=== PATIENT | female | born 1975 | race Caucasian/White ===

== ENCOUNTER 2022-12-25 14:25 | Inpatient (IN) | payer BC, SELFPAY ==
[2022-12-25] VITALS (38 sets, daily range): BP systolic 86–182; BP diastolic 57–116; PULSE 78–118; RESP 12–18; TEMP 36.1–36.9; O2SAT 76–100; BMI 20.2
--- NOTE | 2022-12-25 14:51 | CRLHL7_ITS ---
For Patients: As a result of the Century Cures Act, medical imaging exams and procedure reports are released immediately into your electronic medical record. You may view this report before your referring provider. If you have questions, please contact your health care provider. INDICATION: Trauma, fall TECHNIQUE: CT head without contrast. COMPARISON: None. FINDINGS: No intracranial hemorrhage. No discrete mass or mass effect. There is no midline shift. The basilar cisterns are patent. No hydrocephalus. The chapman-white matter interface is otherwise preserved. No acute osseous abnormality. Bifrontal small scalp hematomas and subcutaneous edema. The mastoid air cells are clear. Trace air-fluid level in the left maxillary sinus. Hypo pneumatization of the frontal sinuses. The visualized portions of the orbits and globes are unremarkable. IMPRESSION: No acute intracranial process per unenhanced head CT. Please note that all CT scans at this facility use dose modulation, iterative reconstruction, and/or weight-based dosing when appropriate to reduce radiation dose to as low as reasonably achievable. Dictated by Yoandy Treviño MD @ 12/25/2022 4:06:54 PM (Electronically Signed)
--- NOTE | 2022-12-25 14:52 | ED.HEATRA ---
HPI - Head Injury General Chief complaint: Head Injury/Pain Stated complaint: Fall, head injury Time Seen by Provider: 12/25/22 14:29 History of Present Illness HPI Narrative: This 47-year-old female comes in with her daughter. She fell last night around midnight. She states that she did not lose consciousness but yet does not give me clear details as to what happened. She denies using any alcohol but her daughter shakes her head affirmatively regarding this. The patient states that she does not have any pain. She has bruising on the left and right forehead and her left eye has bruising around it. She denies having any other injury. She has been up ambulating and functioning normally today. She came in because her daughter insisted that she come in. Related Data Home Medications Medication Instructions Recorded Confirmed albuterol sulfate 90 mcg/actuation inhalation 12/25/22 aerosol inhaler (Ventolin HFA) lisinopril 10 mg tablet 10 mg PO DAILY 12/25/22 12/25/22 Allergies Allergy/AdvReac Type Severity Reaction Status Date / Time No Known Drug Allergies Allergy Verified 12/25/22 14:40 Review of Systems Status of ROS: Reports: 10 or more systems reviewed and unremarkable except as noted in History and below Narrative: Constitutional: No fevers, no weight gain or loss. Eyes: No discharge. No vision changes. HENT: No congestion, no sore throat, no ear pain. Cardiovascular: No chest pain, no palpitations. Respiratory: No shortness of breath, no wheezes, no cough. Gastrointestinal: No abdominal pain, no vomiting, no diarrhea. Genitourinary: No dysuria, no hematuria. Musculoskeletal: Normal range of motion. Skin: No rashes, no pruritis. Neurological: No dizziness, weakness, sensory change, speech change. Endo/Heme/Allergies: No bruising or bleeding. No polydipsia. Pysch: no suicidality, no anxiety, no insomnia. All other systems reviewed and are negative. PFSH PFS Social History Smoking Status: Current every day smoker What tobacco products do you use: cigarettes Do you use any of these nicotine containing products: None How often do you have a drink containing alcohol: 4 or more times a week How many standard drinks containing alcohol do you have on a typical day: 3 or 4 How often do you have six or more drinks on one occasion: Daily or almost daily AUDIT-C Alcohol total score: 9 Non-prescribed substance use: denies use Exam Narrative: Exam Narrative: Constitutional: Well-developed, well-nourished, no acute distress. HEENT: Ecchymosis and mild swelling on both sides of the forehead. Around the Left eye has ecchymosis and mild swelling. Neck: Normal range of motion. Nontender. Supple. Heart: Regular. No murmurs. Normal rate. Intact distal pulses. Lungs: Clear to auscultation. No chest discomfort. No wheezes, rhonchi, or rales. Abdomen: Normal bowel sounds. Nontender. No rebound tenderness. Genitalia: Deferred. Back: No midline tenderness. Normal range of motion. Extremities: Normal range of motion. No injury. Skin: Intact. No rash. Warm. No erythema or pallor. Neurologic: No altered sensation. No weakness. Alert and oriented. No facial asymmetry. [id number] is normal. No pronator drift. Director Fundraising strength is equal bilaterally. She is able to raise each leg from the bed. Psychiatric: No suicidality. No anxiety or depression. No insomnia. Nursing notes and vitals signs are reviewed. Const: Vital Signs, click to edit/add: Vital Signs - 24 hr 12/25/22 14:33 12/25/22 16:19 12/25/22 17:00 Temperature 96.9 F L Pulse Rate Pulse Rate [Pulse Oximeter] 80 78 78 Respiratory Rate 14 12 Blood Pressure Blood Pressure [Ri ght Upper Arm] 163/90 H 159/98 H Pulse Oximetry 100 95 Oxygen Delivery Me thod Room Air Room Air Oxygen Flow Rate 12/25/22 17:24 12/25/22 17:25 12/25/22 17:30 Temperature Pulse Rate 89 88 80 Pulse Rate [Pulse Oximeter] Respiratory Rate Blood Pressure Blood Pressure [Ri ght Upper Arm] Pulse Oximetry 89 96 98 Oxygen Delivery Me thod Oxygen Flow Rate 12/25/22 17:38 12/25/22 17:32 12/25/22 17:45 Temperature Pulse Rate 107 H 99 Pulse Rate [Pulse Oximeter] Respiratory Rate Blood Pressure 161/97 H Blood Pressure [Ri ght Upper Arm] Pulse Oximetry 96 76 L 98 Oxygen Delivery Me thod Nasal Cannula Oxygen Flow Rate 2 12/25/22 17:53 12/25/22 17:55 12/25/22 18:00 Temperature Pulse Rate 99 94 101 H Pulse Rate [Pulse Oximeter] Respiratory Rate Blood Pressure 182/115 H 165/94 H Blood Pressure [Ri ght Upper Arm] Pulse Oximetry 100 100 97 Oxygen Delivery Me thod Oxygen Flow Rate 12/25/22 18:15 12/25/22 18:28 12/25/22 18:30 Temperature Pulse Rate 90 108 H 108 H Pulse Rate [Pulse Oximeter] Respiratory Rate Blood Pressure 145/103 H Blood Pressure [Ri ght Upper Arm] Pulse Oximetry 100 91 96 Oxygen Delivery Me thod Oxygen Flow Rate 12/25/22 18:33 12/25/22 18:37 12/25/22 18:43 Temperature Pulse Rate 111 H 118 H 116 H Pulse Rate [Pulse Oximeter] Respiratory Rate Blood Pressure 148/105 H 145/116 H 141/99 H Blood Pressure [Ri ght Upper Arm] Pulse Oximetry 98 100 86 L Oxygen Delivery Me thod Oxygen Flow Rate 12/25/22 18:45 12/25/22 18:46 12/25/22 18:51 Temperature Pulse Rate 115 H 109 H 111 H Pulse Rate [Pulse Oximeter] Respiratory Rate Blood Pressure 133/87 126/82 Blood Pressure [Ri ght Upper Arm] Pulse Oximetry 87 L 97 95 Oxygen Delivery Me thod Oxygen Flow Rate 12/25/22 18:57 12/25/22 19:00 12/25/22 19:01 Temperature Pulse Rate 113 H 111 H 110 H Pulse Rate [Pulse Oximeter] Respiratory Rate Blood Pressure 117/87 118/90 H Blood Pressure [Ri ght Upper Arm] Pulse Oximetry 99 100 100 Oxygen Delivery Me thod Oxygen Flow Rate Course Vital Signs Vital signs: Initial Vital Signs Temperature 96.9 F L 12/25/22 14:33 Temperature Source Temporal Artery Scan 12/25/22 14:33 Pulse Rate 80 12/25/22 14:33 Respiratory Rate 14 12/25/22 14:33 Blood Pressure 163/90 H 12/25/22 14:33 Blood Pressure Mean 114 12/25/22 14:33 Blood Pressure Position Sitting 12/25/22 14:33 Pulse Oximetry 100 12/25/22 14:33 Oxygen Delivery Method 12/25/22 14:33 Vital Signs Temperature 96.9 F L 12/25/22 14:33 Pulse Rate 80 12/25/22 14:33 Respiratory Rate 14 12/25/22 14:33 Blood Pressure 163/90 H 12/25/22 14:33 Pulse Oximetry 100 12/25/22 14:33 Oxygen Delivery Method 12/25/22 14:33 Temperature 96.9 F L 12/25/22 14:33 Pulse Rate 110 H 12/25/22 19:01 Respiratory Rate 12 12/25/22 16:19 Blood Pressure 118/90 H 12/25/22 19:01 Pulse Oximetry 100 12/25/22 19:01 Oxygen Delivery Method 12/25/22 17:38 Oxygen Flow Rate 2 12/25/22 17:38 MDM - Head Injury MDM Narrative Medical decision making narrative: This patient comes in with her daughter because of a head injury that occurred about 16 hours prior to arrival. She states that she did not have any complaints and had no pain. She does have significant bruising on her forehead and around her left eye. She denies loss of consciousness. CT imaging of her head shows no acute findings. I went to revisit the patient after the CT scan was completed because there was report that there was a change in her function. Her neurologic exam initially was completely normal. Her mental status however distinctly changed. She was completely understandable but did not answer questions appropriately. She was not cooperative with a repeat exam at this time. Lab results returned with blood alcohol level at 0.02. Most notably her sodium is very low at 111. She received a L of normal saline intravenously. She began to be tremulous on repeat exam when I was again evaluating her neurologic function. She did not show any neurologic deficit but was tremulous. About 10 or 15 minutes after this she did have a tonic-clonic seizure. She received a mg of Ativan soon after the seizure subsided. This seizure lasted approximately 45 seconds. The nurse reported later that she was having an increased heart rate and appeared to have some tremors again so another dose of Ativan 1 mg was administered intravenously. According to the patient's sister she takes alcohol in large amounts daily. This is likely a withdrawal seizure but there is no report of this happening in the past. Her hyponatremia may be contributing to this. I spoke with the hospitalist video production specialist, Dr. Tyler, who will arrange for her admission. Time spent in critical care of this patient was 45 minutes. Lab Data Labs: Lab Results 12/25/22 12/25/22 12/25/22 Range/Units 17:00 17:00 17:00 WBC 9.58 (4.50-11.00) K/uL RBC 3.64 L (4.00-5.20) m/uL Hgb 12.1 (12.0-16.0) gm/dL Hct 33.2 (33.0-51.0) % MCV 91 (80-100) fL MCH 33 (26-34) pg MCHC 36 (32-36) gm/dL RDW Coeff of Evangelina 11.3 L (11.5-15.5) % Plt Count 249 (140-440) K/uL Neut % (Auto) 71.4 (42.0-72.0) % Lymph % (Auto) 18.8 L (20-44) % [place] % (Auto) 9.3 (0.0-11.0) % Eos % (Auto) 0.0 (0.0-7.0) % Baso % (Auto) 0.1 (0.0-3.0) % Neut # (Auto) 6.84 (1.7-7.0) K/uL Lymph # (Auto) 1.80 (0.90-2.90) K/uL [place] # (Auto) 0.90 (0.00-0.90) K/UL Eos # (Auto) 0.00 (0.00-0.50) K/uL Baso # (Auto) 0.01 (0.00-0.30) K/uL Sodium 111 L* (135-149) mmol/L Potassium 4.0 (3.6-5.1) mmol/L Chloride 81 L (96-114) mmol/L Carbon Dioxide 23 (20-32) mmol/L BUN 5 (5-24) mg/dL Creatinine 0.2 L (0.5-1.5) mg/dL Estimated Creat Clear 251.68 Estimated GFR 146 ml/min Glucose 110 (60-115) mg/dL Calcium 8.3 L (8.4-10.6) mg/dL Total Bilirubin 1.1 (0.1-1.5) mg/dL Direct Bilirubin 0.2 (0.0-0.5) mg/dL AST 62 H (12-35) U/L ALT 63 H (4-35) U/L Alkaline Phosphatase 60 (40-150) U/L Ammonia 24.0 (13.1-30.0) umol/L C-Reactive Protein < 0.5 L (0.5-1.0) mg/dL Total Protein 7.3 (6.0-8.3) g/dL Albumin 4.6 (3.3-5.0) g/dL Ethyl Alcohol 0.02 (0.01-0.03) % Imaging Data CT scan - head: Radiologist's impression: No acute intracranial process per unenhanced head CT. Chest x-ray: Radiologist's impression: FINDINGS: Cardiovascular and mediastinum: Heart size and vasculature are normal in caliber and appearance. Mediastinum is within normal limits. Lungs and pleural space: Lungs are clear. No sign of infiltrate or mass. No sign of pleural effusion. No pneumothorax. Bones and soft tissues: No significant findings. IMPRESSION: Unremarkable chest. Critical Care Time Critical Care Time Critical Care Time: Yes Attestation: The patient required my highest level preparedness to intervene emergently and I personally spent this critical care time directly and personally managing the patient. This critical care time included: Obtaining a history; Examining the patient; Pulse oximetry; Ordering and reviewing of studies; Arranging urgent treatment with development of a management plan; Evaluation of patients response to treatment; Frequent reassessment discussions with other providers. This critical care time was performed to assess and manage the high probability of imminent life-threatening deterioration that could result in multiorgan failure. It was exclusive of separate billable procedures and treating other patients and teaching time. Total Critical Care Time in Minutes: 45 Discharge Plan Discharge Clinical Impression: Alcohol withdrawal, Closed head injury, Hyponatremia, Seizure Patient Disposition: Admitted As Inpatient Condition: Unchanged Prescriptions: No Action lisinopril 10 mg tablet 10 mg PO DAILY Label Comments: TAKE ONE TABLET BY MOUTH ONE TIME DAILY albuterol sulfate [Ventolin HFA] 90 mcg/actuation HFA aerosol inhaler INHALATION Follow Up/Referrals: Joaquin Hood MD [Primary Care Provider] -
--- NOTE | 2022-12-25 14:58 | ED.NURSE ---
Daughter approached nursing staff and wanted to make sure that staff is aware that her mother was drinking at the time. Furthermore, daughter would like staff to know that this is not the first time she has found her mother in this condition due to drinking in excess. Daughter also wants staff to be alerted that the pt told the physician a conflicting story on the mechanism of injury- told physician she fell down the stairs. Told staff she fell onto a concrete floor. Noted during pts assessment is bruising/lump to the pts R upper forehead, Bruising and scrapes present to pts L upper forehead and surrounding her L eye.
--- NOTE | 2022-12-25 17:03 | ED.NURSE ---
Patients daughter alerted staff at approx 1610 that mother was slurring her speech. RN assessed patient at this time; Pt had equal/bilateral hand gear inspector and push/pull strength in feet bilateral and was able to follow commands. Pt alert and oriented at this time, was a little slow to respond to answers. However, from the baseline assessment of this patient, there was no change. At approximately 1641 this RN was notified that the pts daughter was very upset and that another staff member noted that the patient was not verbally interacting with her at this time. Being the primary nurse for this room, I went in to assess the patient. Pt exhibiting word salad at this time when responding to questions. Slight slurring of the speech present at this time as well. Pt unable to identify her name and responds with nothing. Patient does not follow basic commands from staff. Blood Glucose level assessed at this time is 123. Patient is unable to track anything with her eyes per commands at this time either. Pts provider was alerted to changes in mental status.
[2022-12-25 17:05] LABS: Basophils Absolute Auto 0.01 K/uL (0.00-0.30); Basophils Percent Auto 0.1 % (0.0-3.0); Hematocrit 33.2 % (33.0-51.0); Hemoglobin* 12.1 gm/dL (12.0-16.0); Immature Granulocytes Abs Auto 0.04 K/uL (0.00-0.30); Immature Granulocytes Pct Auto 0.4 %; Lymphocytes Percent Auto 18.8 % (20-44); Mean Corpuscular HGB Conc 36 gm/dL (32-36); Mean Corpuscular Hemoglobin 33 pg (26-34); Mean Corpuscular Volume 91 fL (80-100); Monocytes Percent Auto 9.3 % (0.0-11.0); Neutrophils Absolute Auto 6.84 K/uL (1.7-7.0); Neutrophils Percent Auto 71.4 % (42.0-72.0); Platelet Count* 249 K/uL (140-440); RDW Coefficient of Variation % 11.3 % (11.5-15.5); Red Blood Count 3.64 m/uL (4.00-5.20); White Blood Count* 9.58 K/uL (4.50-11.00)
--- NOTE | 2022-12-25 17:08 | ED.NURSE ---
MD in room for assessment of pt d/t acute change in neuro status. Test Technician asks pt what happened earlier today. Pt is able to state words but unable to create coherent sentences. MD at bedside to perform neuro assessment, and when MD attempts to have pt squeeze hands, pt states no. MD attempts other aspects of neuro exam and pt continuing to refuse. Pt agrees to IV/blood work and resume writer places 18 g in right AC. Test Technician attempts neuro exam and pt unable to push against resistance and exhibit strength in all four limbs. Pt unable to squeeze resume writer's hands in bilateral arms. Pt continues to attempt climbing out of bed. Pt reminded to use call light when needing to get up. Pt being monitored on security camera. Pt's daughter at bedside and educated to use call light when pt attempting to get up. Blood work sent to lab. Test Technician verifies new orders with MD. Per MD, repeat imaging not needed at this time, but will be ordered if needed pending blood results.
[2022-12-25 17:13] LABS: Slide Review Reflex No
[2022-12-25 17:22] LABS: Albumin* 4.6 g/dL (3.3-5.0); Chloride* 81 mmol/L (96-114)
[2022-12-25 17:25] LABS: Creatinine* 0.2 mg/dL (0.5-1.5); Est. Creatinine Clearance* 251.68; Estimated Glomerular Filt Rate 146 ml/min
[2022-12-25 17:26] LABS: Alanine Aminotransferase* 63 U/L (4-35); Alkaline Phosphatase* 60 U/L (40-150); Aspartate Amino Transferase* 62 U/L (12-35); Bilirubin Direct* 0.2 mg/dL (0.0-0.5); Bilirubin Total* 1.1 mg/dL (0.1-1.5); Blood Urea Nitrogen* 5 mg/dL (5-24); Calcium* 8.3 mg/dL (8.4-10.6); Carbon Dioxide* 23 mmol/L (20-32); Glucose* 110 mg/dL (60-115); Total Protein* 7.3 g/dL (6.0-8.3)
[2022-12-25 17:27] LABS: Ethanol* 0.02 % (0.01-0.03)
--- NOTE | 2022-12-25 17:36 | CRLHL7_ITS ---
For Patients: As a result of the Century Cures Act, medical imaging exams and procedure reports are released immediately into your electronic medical record. You may view this report before your referring provider. If you have questions, please contact your health care provider. INDICATION: cough; hypoxia TECHNIQUE: Chest 1 view. COMPARISON: 06/16/20 FINDINGS: Cardiovascular and mediastinum: Heart size and vasculature are normal in caliber and appearance. Mediastinum is within normal limits. Lungs and pleural space: Lungs are clear. No sign of infiltrate or mass. No sign of pleural effusion. No pneumothorax. Bones and soft tissues: No significant findings. IMPRESSION: Unremarkable chest. Dictated by: Yoandy Stout MD @ 12/25/2022 18:01:40 (Electronically Signed)
[2022-12-25 17:45] LABS: C Reactive Protein* < 0.5 mg/dL (0.5-1.0); Sodium* 111 mmol/L (135-149)
[2022-12-25] MEDS: 0.9 % SODIUM CHLORIDE 1000 ml 1,000 ML IV ×2 (18:17→23:57)
[2022-12-25] MEDS: LORazepam 2 MG/ML inj 1 MG IV ×2 (18:25→18:42)
--- NOTE | 2022-12-25 18:31 | ED.NURSE ---
Addendum entered by Carrie Pérez RN 12/25/22 18:52: RN was in pts room attempting to initiate IV fluids when patient becamse very restless and her HR increased into the 170's. Pt then began actively seizing. Seizure pads were already in place at the time. Dr gómez alerted and ordered 1 mg Ativan IVP. Fluids and cardiace monitor initiated as well as vitals Q 5 min. Approximately 1840 pt received another 1 mg dose Ativan via IVP per MD order for increasing HR and increasing tremor activity. Pt continuously suctioned bedside as needed. Original Note: RN was in the pts room attempting to initiate
[2022-12-25] MEDS: 0.9 % SODIUM CHLORIDE 500 ML 500 ML IV (19:27)
[2022-12-25] MEDS: LORazepam 2 MG/ML inj 1 MG IVP (19:46)
--- NOTE | 2022-12-25 19:49 | ED.NURSE ---
Dr. Morrow. in room to see pt. Per Dr. Morrow, pt unit. [facility] called and informed bed request sent.
--- NOTE | 2022-12-25 19:51 | W.PC.EDHO ---
Primary Language: Preferred Language: Orientation Status: [] Alert & Oriented [x] Slight Confusion [] Known Dx Dementia Transfers By: [] Assist of 1 [] Assist of 2 [x] Lift Active Medications Generic Name Dose Route Start Last Admin Trade Name Freq PRN Reason Stop Dose Admin Sodium Chloride 500 mls @ 500 mls/hr 12/25/22 19:24 12/25/22 19:27 0.9 % Sodium Chloride 500 Ml IV 12/25/22 20:23 500 mls/hr .Q1H ONE Administration Lorazepam 1 mg 12/25/22 19:43 12/25/22 19:46 Lorazepam 2 Mg/Ml Inj IVP 12/25/22 19:44 1 mg ONCE ONE Administration Discontinued Medications Generic Name Dose Route Start Last Admin Trade Name Freq PRN Reason Stop Dose Admin Sodium Chloride 1,000 mls @ 1,000 mls/hr 12/25/22 18:15 12/25/22 19:26 0.9 % Sodium Chloride 1000 Ml IV 12/25/22 19:14 Infused .Q1H SHARON Infusion Lorazepam 1 mg 12/25/22 18:35 12/25/22 18:25 Lorazepam 2 Mg/Ml Inj IV 12/25/22 18:36 1 mg ONCE ONE Administration Lorazepam 1 mg 12/25/22 18:42 12/25/22 18:42 Lorazepam 2 Mg/Ml Inj IV 12/25/22 18:43 1 mg ONCE ONE Administration Lorazepam 1 mg 12/25/22 19:40 12/25/22 19:45 Lorazepam 1 Mg Tablet PO 12/25/22 19:41 Not Given ONCE ONE Lorazepam 1 mg 12/25/22 19:42 12/25/22 19:45 Lorazepam 2 Mg/Ml Inj IVP 12/25/22 19:43 Not Given ONCE ONE Description of Symptoms ED Triage Date of Onset of 12/25/22 Symptoms Female History Patient No [place] Coma Scale Emily coma scale total score 13 [place] coma scale total score 11 [place] coma scale total score 15 Triage Comment ED Triage Comment Patient brought in by daughter, denies pain anywhere. States she fell last night outside at 0100 hours, denies ETOH use. Denies LOC. Denies exposure to cold for long. Pt has multiple bruises present at this time to both sides of face. IV Insertion/Site Date of IV Line Insertion [ 12/25/22 Right Anticubital] Oxygen Administration Pulse Oximetry 96 Pulse Oximetry 97 Pulse Oximetry 96 Pulse Oximetry 96 Pulse Oximetry 97 Pulse Oximetry 97 Pulse Oximetry 95 Pulse Oximetry 100 Pulse Oximetry 100 Pulse Oximetry 99 Pulse Oximetry 95 Pulse Oximetry 97 Pulse Oximetry 87 Pulse Oximetry 86 Pulse Oximetry 100 Pulse Oximetry 98 Pulse Oximetry 96 Pulse Oximetry 91 Pulse Oximetry 100 Pulse Oximetry 97 Pulse Oximetry 100 Pulse Oximetry 100 Pulse Oximetry 98 Pulse Oximetry 96 Pulse Oximetry 76 Pulse Oximetry 98 Pulse Oximetry 96 Pulse Oximetry 89 Pulse Oximetry 95 Pulse Oximetry 100 Oxygen Delivery Method Nasal Cannula Oxygen Delivery Method Room Air Oxygen Delivery Method Room Air Oxygen Flow Rate 2
[2022-12-25 20:03] LABS: Amphetamine Screen Urine Negative (Negative); Barbiturate Screen Urine Negative (Negative); Benzodiazepines Screen Urine Negative (Negative); Cannabinoid Screen Urine Negative (Negative); Cocaine Screen Urine Negative (Negative); Methadone Screen Urine Negative (Negative); Methamphetamines Screen Urine Negative (Negative); Opiate Screen Urine Negative (Negative); Oxycodone Screen Urine Negative (Negative); Phencyclidine Screen Urine Negative (Negative); Tricyclic Antidepressant Urine Negative (Negative)
[2022-12-25 20:10] LABS: SARS PCR* Negative SARS-CoV-2 (Negative)
[2022-12-25 20:14] LABS: Appearance Urine Clear (Clear); Bilirubin Urine Negative (Negative); Blood Urine 1+ (Negative); Color Urine Yellow (Yellow); Glucose Urine Trace (Negative); Ketones Urine Negative (Negative); Leukocyte Esterase Urine Negative (Negative); Nitrite Urine Negative (Negative); Protein Urine 3+ (Negative); Urobilinogen Urine 0.2 (0.2-1.0); pH Urine 6.5 (5.0-8.5)
[2022-12-25 20:21] LABS: Bacteria Urine Few; Squamous Epithelial Cell Urine Few (None-Few); WBC Urine 0-2 (0-5)
[2022-12-25 20:57] LABS: Lipase* 269 U/L (23-300)
[2022-12-25 21:05] LABS: HCO3 VBG 26 mmol/L (21-28); PCO2 VBG 36 mmHG (40-50); PO2 VBG 68.6 mmHG (25-47); pH VBG 7.475 (7.32-7.43)
[2022-12-25 21:09] LABS: Troponin I* 0.03 ng/mL (0.01-0.04)
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
[2022-12-25] MEDS: 0.9 % SODIUM CHLORIDE 1000 ml 1,000 ML 125 ML IV (21:27)
[2022-12-25] MEDS: PHENobarbitaL 260 MG in 0.9 % SODIUM CHLORIDE 100 ml 100 ML 208 MG IVPB (21:29)
[2022-12-25 21:37] LABS: Sodium* 112 mmol/L (135-149)
[2022-12-25 22:13] LABS: Troponin I* 0.64 ng/mL (0.01-0.04)
[2022-12-25 23:12] LABS: INR 0.95 (0.91-1.10); Partial Thromboplastin Time* 29 Seconds (23-33); Prothrombin Time 13.3 Seconds
[2022-12-25] MEDS: NICOTINE 21 MG PATCH 1 PATCH TRANSDERMA (23:55)
[2022-12-25] MEDS: ENOXAPARIN 30 MG/0.3ML INJ SUBCUT (23:56)
[2022-12-26] VITALS (21 sets, daily range): BP systolic 90–129; BP diastolic 63–90; PULSE 69–99; RESP 14–18; TEMP 36.2–37.4; O2SAT 98–100
[2022-12-26 02:37] LABS: Sodium* 115 mmol/L (135-149); Troponin I* 0.71 ng/mL (0.01-0.04)
--- NOTE | 2022-12-26 03:19 | PM.IMPN1 ---
Progress Note: A&P Assessment and plan (1) Hyponatremia: Problem details: 111 on 12/25/2022 Status: Acute Plan [facility] Hospitalist Cross Cover Note eHospitalist was contacted by nursing staff with concern of [critical labs] [The patient is a 47-year-old woman admitted with hyponatremia to 111, seizures and altered mental status in the setting of alcohol abuse. She was treated with normal saline. Repeat sodium right now is 115. The patient had an initial troponin of 0.64 and 0.71. I spoke to the nurse over the phone. The patient's mentation is improving and she is otherwise comfortable. The vitals are stable. Repeat labs are pending in the morning.] -Continue current management and follow-up labs in the morning. -Please call back for any worsening in mental status in which case she may need 3% hypertonic saline. Thank you for including Vee Recio in the patients care. This service is available for further assistance as requested by your care team by calling [phone]. Subjective Date Seen: 12/26/22 Exam Const: Vital Signs, click to edit/add: Vital Signs - 24 hr 12/25/22 14:33 12/25/22 16:19 12/25/22 17:00 Temperature 96.9 F L Pulse Rate Pulse Rate [Pulse Oximeter] 80 78 78 Respiratory Rate 14 12 Blood Pressure Blood Pressure [Le ft Arm] Blood Pressure [Ri ght Upper Arm] 163/90 H 159/98 H Pulse Oximetry 100 95 Oxygen Delivery Me thod Room Air Room Air Oxygen Flow Rate 12/25/22 17:24 12/25/22 17:25 12/25/22 17:30 Temperature Pulse Rate 89 88 80 Pulse Rate [Pulse Oximeter] Respiratory Rate Blood Pressure Blood Pressure [Le ft Arm] Blood Pressure [Ri ght Upper Arm] Pulse Oximetry 89 96 98 Oxygen Delivery Me thod Oxygen Flow Rate 12/25/22 17:38 12/25/22 17:32 12/25/22 17:45 Temperature Pulse Rate 107 H 99 Pulse Rate [Pulse Oximeter] Respiratory Rate Blood Pressure 161/97 H Blood Pressure [Le ft Arm] Blood Pressure [Ri ght Upper Arm] Pulse Oximetry 96 76 L 98 Oxygen Delivery Me thod Nasal Cannula Oxygen Flow Rate 2 12/25/22 17:53 12/25/22 17:55 12/25/22 18:00 Temperature Pulse Rate 99 94 101 H Pulse Rate [Pulse Oximeter] Respiratory Rate Blood Pressure 182/115 H 165/94 H Blood Pressure [Le ft Arm] Blood Pressure [Ri ght Upper Arm] Pulse Oximetry 100 100 97 Oxygen Delivery Me thod Oxygen Flow Rate 12/25/22 18:15 12/25/22 18:28 12/25/22 18:30 Temperature Pulse Rate 90 108 H 108 H Pulse Rate [Pulse Oximeter] Respiratory Rate Blood Pressure 145/103 H Blood Pressure [Le ft Arm] Blood Pressure [Ri ght Upper Arm] Pulse Oximetry 100 91 96 Oxygen Delivery Me thod Oxygen Flow Rate 12/25/22 18:33 12/25/22 18:37 12/25/22 18:43 Temperature Pulse Rate 111 H 118 H 116 H Pulse Rate [Pulse Oximeter] Respiratory Rate Blood Pressure 148/105 H 145/116 H 141/99 H Blood Pressure [Le ft Arm] Blood Pressure [Ri ght Upper Arm] Pulse Oximetry 98 100 86 L Oxygen Delivery Me thod Oxygen Flow Rate 12/25/22 18:45 12/25/22 18:46 12/25/22 18:51 Temperature Pulse Rate 115 H 109 H 111 H Pulse Rate [Pulse Oximeter] Respiratory Rate Blood Pressure 133/87 126/82 Blood Pressure [Le ft Arm] Blood Pressure [Ri ght Upper Arm] Pulse Oximetry 87 L 97 95 Oxygen Delivery Me thod Oxygen Flow Rate 12/25/22 18:57 12/25/22 19:00 12/25/22 19:01 Temperature Pulse Rate 113 H 111 H 110 H Pulse Rate [Pulse Oximeter] Respiratory Rate Blood Pressure 117/87 118/90 H Blood Pressure [Le ft Arm] Blood Pressure [Ri ght Upper Arm] Pulse Oximetry 99 100 100 Oxygen Delivery Me thod Oxygen Flow Rate 12/25/22 19:02 12/25/22 19:06 12/25/22 19:11 Temperature Pulse Rate 110 H 108 H 105 H Pulse Rate [Pulse Oximeter] Respiratory Rate Blood Pressure 120/81 112/82 Blood Pressure [Le ft Arm] Blood Pressure [Ri ght Upper Arm] Pulse Oximetry 95 97 97 Oxygen Delivery Me thod Oxygen Flow Rate 12/25/22 19:15 12/25/22 19:16 12/25/22 19:22 Temperature Pulse Rate 105 H 105 H 104 H Pulse Rate [Pulse Oximeter] Respiratory Rate Blood Pressure 118/75 114/80 Blood Pressure [Le ft Arm] Blood Pressure [Ri ght Upper Arm] Pulse Oximetry 96 96 97 Oxygen Delivery Me thod Oxygen Flow Rate 12/25/22 19:26 12/25/22 21:56 12/25/22 21:45 Temperature 98.4 F Pulse Rate 103 H Pulse Rate [Pulse Oximeter] 99 Respiratory Rate 16 Blood Pressure 110/74 Blood Pressure [Le ft Arm] 106/71 Blood Pressure [Ri ght Upper Arm] Pulse Oximetry 96 99 99 Oxygen Delivery Me thod Nasal Cannula Oxygen Flow Rate 1 12/25/22 22:00 12/25/22 22:51 12/25/22 22:51 Temperature 98.4 F Pulse Rate Pulse Rate [Pulse Oximeter] 99 Respiratory Rate 16 16 Blood Pressure Blood Pressure [Le ft Arm] 106/71 Blood Pressure [Ri ght Upper Arm] Pulse Oximetry 99 99 99 Oxygen Delivery Me thod Nasal Cannula Nasal Cannula Oxygen Flow Rate 1 1 12/25/22 22:50 12/25/22 23:50 12/26/22 01:50 Temperature 98.4 F 97.6 F 98.4 F Pulse Rate Pulse Rate [Pulse Oximeter] 96 94 95 Respiratory Rate 18 16 16 Blood Pressure Blood Pressure [Le ft Arm] 93/65 86/57 L 111/77 Blood Pressure [Ri ght Upper Arm] Pulse Oximetry 99 99 100 Oxygen Delivery Me thod Nasal Cannula Nasal Cannula Room Air Oxygen Flow Rate 1 1 12/26/22 00:40 Temperature 98 F Pulse Rate Pulse Rate [Pulse Oximeter] 84 Respiratory Rate 16 Blood Pressure Blood Pressure [Le ft Arm] 90/63 Blood Pressure [Ri ght Upper Arm] Pulse Oximetry 98 Oxygen Delivery Me thod Nasal Cannula Oxygen Flow Rate 1 Labs Labs: Laboratory Results - last 24 hr 12/25/22 12/25/22 12/25/22 16:54 16:55 17:00 WBC RBC Hgb Hct MCV MCH MCHC RDW Coeff of Evangelina Plt Count Neut % (Auto) Lymph % (Auto) [place] % (Auto) Eos % (Auto) Baso % (Auto) Neut # (Auto) Lymph # (Auto) [place] # (Auto) Eos # (Auto) Baso # (Auto) INR APTT VBG pH VBG pCO2 VBG pO2 VBG HCO3 Sodium Potassium Chloride Carbon Dioxide BUN Creatinine Estimated Creat Clear Estimated GFR Glucose Lactate Calcium Total Bilirubin Direct Bilirubin AST ALT Alkaline Phosphatase Ammonia 24.0 Troponin I C-Reactive Protein Total Protein Albumin Lipase Urine Color Yellow Urine Appearance Clear Urine pH 6.5 Ur Specific [place] 1.020 Urine Protein 3+ A Urine Glucose (UA) Trace A Urine Ketones Negative Urine Blood 1+ A Urine Nitrite Negative Urine Bilirubin Negative Urine Urobilinogen 0.2 Ur Leukocyte Esterase Negative Urine RBC 2-5 A Urine WBC 0-2 Ur Squamous Epith Cells Few Urine Bacteria Few A Urine Opiates Screen Negative Ur Oxycodone Screen Negative Urine Methadone Screen Negative Ur Propoxyphene Screen Negative Ur Barbiturates Screen Negative U Tricyclic Antidepress Negative Ur Phencyclidine Scrn Negative Ur Amphetamines Screen Negative U Methamphetamines Scrn Negative U Benzodiazepines Scrn Negative Urine Cocaine Screen Negative U Marijuana (THC) Screen Negative Ur Drug Screen Comment See Note Ethyl Alcohol SARS-CoV-2 (PCR) SARS-CoV-2 Ag (Rapid) 12/25/22 12/25/22 12/25/22 17:00 17:00 19:20 WBC 9.58 RBC 3.64 L Hgb 12.1 Hct 33.2 MCV 91 MCH 33 MCHC 36 RDW Coeff of Evangelina 11.3 L Plt Count 249 Neut % (Auto) 71.4 Lymph % (Auto) 18.8 L [place] % (Auto) 9.3 Eos % (Auto) 0.0 Baso % (Auto) 0.1 Neut # (Auto) 6.84 Lymph # (Auto) 1.80 [place] # (Auto) 0.90 Eos # (Auto) 0.00 Baso # (Auto) 0.01 INR APTT VBG pH VBG pCO2 VBG pO2 VBG HCO3 Sodium 111 L* Potassium 4.0 Chloride 81 L Carbon Dioxide 23 BUN 5 Creatinine 0.2 L Estimated Creat Clear 251.68 Estimated GFR 146 Glucose 110 Lactate Calcium 8.3 L Total Bilirubin 1.1 Direct Bilirubin 0.2 AST 62 H ALT 63 H Alkaline Phosphatase 60 Ammonia Troponin I 0.03 C-Reactive Protein < 0.5 L Total Protein 7.3 Albumin 4.6 Lipase 269 Urine Color Urine Appearance Urine pH Ur Specific [place] Urine Protein Urine Glucose (UA) Urine Ketones Urine Blood Urine Nitrite Urine Bilirubin Urine Urobilinogen Ur Leukocyte Esterase Urine RBC Urine WBC Ur Squamous Epith Cells Urine Bacteria Urine Opiates Screen Ur Oxycodone Screen Urine Methadone Screen Ur Propoxyphene Screen Ur Barbiturates Screen U Tricyclic Antidepress Ur Phencyclidine Scrn Ur Amphetamines Screen U Methamphetamines Scrn U Benzodiazepines Scrn Urine Cocaine Screen U Marijuana (THC) Screen Ur Drug Screen Comment Ethyl Alcohol 0.02 SARS-CoV-2 (PCR) Negative SARS-CoV-2 SARS-CoV-2 Ag (Rapid) Cancelled 12/25/22 12/25/22 12/25/22 20:53 20:53 20:53 WBC RBC Hgb Hct MCV MCH MCHC RDW Coeff of Evangelina Plt Count Neut % (Auto) Lymph % (Auto) [place] % (Auto) Eos % (Auto) Baso % (Auto) Neut # (Auto) Lymph # (Auto) [place] # (Auto) Eos # (Auto) Baso # (Auto) INR APTT VBG pH 7.475 H VBG pCO2 36 L VBG pO2 68.6 H VBG HCO3 26 Sodium 112 L* Potassium Chloride Carbon Dioxide BUN Creatinine Estimated Creat Clear Estimated GFR Glucose Lactate Calcium Total Bilirubin Direct Bilirubin AST ALT Alkaline Phosphatase Ammonia Troponin I 0.64 H* C-Reactive Protein Total Protein Albumin Lipase Urine Color Urine Appearance Urine pH Ur Specific [place] Urine Protein Urine Glucose (UA) Urine Ketones Urine Blood Urine Nitrite Urine Bilirubin Urine Urobilinogen Ur Leukocyte Esterase Urine RBC Urine WBC Ur Squamous Epith Cells Urine Bacteria Urine Opiates Screen Ur Oxycodone Screen Urine Methadone Screen Ur Propoxyphene Screen Ur Barbiturates Screen U Tricyclic Antidepress Ur Phencyclidine Scrn Ur Amphetamines Screen U Methamphetamines Scrn U Benzodiazepines Scrn Urine Cocaine Screen U Marijuana (THC) Screen Ur Drug Screen Comment Ethyl Alcohol SARS-CoV-2 (PCR) SARS-CoV-2 Ag (Rapid) 12/25/22 12/26/22 20:55 02:00 WBC RBC Hgb Hct MCV MCH MCHC RDW Coeff of Evangelina Plt Count Neut % (Auto) Lymph % (Auto) [place] % (Auto) Eos % (Auto) Baso % (Auto) Neut # (Auto) Lymph # (Auto) [place] # (Auto) Eos # (Auto) Baso # (Auto) INR 0.95 APTT 29 VBG pH VBG pCO2 VBG pO2 VBG HCO3 Sodium 115 L* Potassium Chloride Carbon Dioxide BUN Creatinine Estimated Creat Clear Estimated GFR Glucose Lactate Calcium Total Bilirubin Direct Bilirubin AST ALT Alkaline Phosphatase Ammonia Troponin I 0.71 H* C-Reactive Protein Total Protein Albumin Lipase Urine Color Urine Appearance Urine pH Ur Specific [place] Urine Protein Urine Glucose (UA) Urine Ketones Urine Blood Urine Nitrite Urine Bilirubin Urine Urobilinogen Ur Leukocyte Esterase Urine RBC Urine WBC Ur Squamous Epith Cells Urine Bacteria Urine Opiates Screen Ur Oxycodone Screen Urine Methadone Screen Ur Propoxyphene Screen Ur Barbiturates Screen U Tricyclic Antidepress Ur Phencyclidine Scrn Ur Amphetamines Screen U Methamphetamines Scrn U Benzodiazepines Scrn Urine Cocaine Screen U Marijuana (THC) Screen Ur Drug Screen Comment Ethyl Alcohol SARS-CoV-2 (PCR) SARS-CoV-2 Ag (Rapid)
--- NOTE | 2022-12-26 05:46 | PC.NURSE ---
Pt arrived to the MS unit around 2039. Parents and a sister accompanied her. She was lethargic and posticatal after having a seizure in the ED. VSS she was afebrile. IVF were started and a dose of Phenebarb was given. She has not required any ativan since she was in the ED. Her CIWA scores are 0-6 at this time. About 0300 she woke up and asked to go to the BR. She was able to answer the admission questions. She is alert and oriented x3. She is up with assist of 1 and a gait belt. She is unsteady and requires alot of quidance and assist with the IV pole. She has been voiding without difficulty. VS have improved throughout the night. HR is now in the 70-80's. BP in the 120/80's. She is on RA with sats in the 100's. No c/o pain from her fall at home. She remains with a bruise on the left side of her face over her eye with a small raise bump.
[2022-12-26 06:12] LABS: HCO3 VBG 24 mmol/L (21-28); PCO2 VBG 29 mmHG (40-50); PO2 VBG 61.4 mmHG (25-47); pH VBG 7.541 (7.32-7.43)
[2022-12-26 06:16] LABS: Basophils Absolute Auto 0.02 K/uL (0.00-0.30); Basophils Percent Auto 0.3 % (0.0-3.0); Eosinophils Absolute Auto 0.01 K/uL (0.00-0.50); Eosinophils Percent Auto 0.2 % (0.0-7.0); Hematocrit 30.2 % (33.0-51.0); Hemoglobin* 10.9 gm/dL (12.0-16.0); Immature Granulocytes Abs Auto 0.01 K/uL (0.00-0.30); Immature Granulocytes Pct Auto 0.2 %; Lymphocytes Absolute Auto 1.42 K/uL (0.90-2.90); Lymphocytes Percent Auto 24.1 % (20-44); Mean Corpuscular HGB Conc 36 gm/dL (32-36); Mean Corpuscular Hemoglobin 33 pg (26-34); Mean Corpuscular Volume 91 fL (80-100); Monocytes Percent Auto 10.9 % (0.0-11.0); Neutrophils Absolute Auto 3.78 K/uL (1.7-7.0); Neutrophils Percent Auto 64.3 % (42.0-72.0); Platelet Count* 213 K/uL (140-440); RDW Coefficient of Variation % 11.4 % (11.5-15.5); Red Blood Count 3.32 m/uL (4.00-5.20); White Blood Count* 5.88 K/uL (4.50-11.00)
[2022-12-26 06:19] LABS: Slide Review Reflex No
[2022-12-26 06:25] LABS: Chloride* 87 mmol/L (96-114)
[2022-12-26 06:28] LABS: Blood Urea Nitrogen* 3 mg/dL (5-24); Carbon Dioxide* 21 mmol/L (20-32); Creatinine* 0.2 mg/dL (0.5-1.5); Est. Creatinine Clearance* 229.03; Estimated Glomerular Filt Rate 146 ml/min; Glucose* 107 mg/dL (60-115); Lipase* 160 U/L (23-300); Phosphorus* 2.3 mg/dL (2.5-4.5)
[2022-12-26 06:29] LABS: Calcium* 7.1 mg/dL (8.4-10.6); Magnesium* 1.7 mg/dL (1.5-2.6)
[2022-12-26 06:35] LABS: Potassium* 2.7 mmol/L (3.6-5.1); Sodium* 115 mmol/L (135-149)
[2022-12-26] MEDS: 0.9 % SODIUM CHLORIDE 1000 ml 1,000 ML 125 ML IV ×3 (06:37→20:32)
[2022-12-26 06:42] LABS: Troponin I* 0.47 ng/mL (0.01-0.04)
[2022-12-26 07:21] LABS: Thyroid Stimulating Hormone* 0.717 uIU/mL (0.270-4.20)
[2022-12-26] MEDS: POTASSIUM CHLORIDE 10 MEQ CAPSULE ER 20 MEQ PO ×2 (07:38→18:46)
[2022-12-26] MEDS: POTASSIUM BICARB 25 MEQ EFFERVESCENT TAB PO ×4 (07:38→14:22)
--- NOTE | 2022-12-26 07:38 | PM.IMPN1 ---
Progress Note: A&P Assessment and plan (1) Hyponatremia: Problem details: - 111 on admission, slowly improving - continue to follow closely, anticipate it will continue to improve with low dose IVFs and ETOH cessation Status: Acute (2) Abnormal liver function tests: Problem details: - alcoholic hepatitis vs cirrhosis vs HAMEED vs other - continue to follow - abdominal ultrasound completed 12/26 with formal radiology read below. Does not appear to have acute surgical needs, our General Surgeon is aware of patient IMPRESSION: 1. Hepatic steatosis. 2. Common bile duct upper limits of normal/borderline prominent, measuring 6mm. 3. Gallbladder appears unremarkable. Status: Acute (3) Alcohol withdrawal: Problem details: - Possible alcohol withdrawal seizure, possible evolving delirium tremens - follow CIWA, Ativan and Phenobarbital as needed for management Status: Acute (4) Closed head injury: Problem details: - CT scan of head negative for acute findings on 12/25/2022 Status: Acute (5) Seizure: Problem details: - Tonic clonic seizure lasting 45 seconds, possibly related to severe hyponatremia as well as alcohol withdrawal Status: Acute (6) Tobacco dependence: Problem details: - patch during stay Status: Acute (7) Encephalopathy acute: Problem details: - Multifactorial: Hyponatremia, alcohol withdrawal, postictal Status: Acute (8) Elevated troponin: Problem details: - likely demand ischemia from ETOH use, fall - peak at 0.71, patient asymptomatic - TTE to be performed 12/26 Status: Acute (9) Normocytic anemia: Problem details: - dilutional vs baseline. Normal MCV - No evidence of acute bleeding - PPI (12/26), guaiac stools Status: Acute Plan - per above - patient continues to require CCU level care - Lovenox for ppx - Brother and mother updated at bedside, questions answered Subjective Date Seen: 12/26/22 Interval history: Charles was admitted to our CCU last night after a fall at home, found to severe hyponatremia in the emergency room. She is a known daily alcohol user, CIWAs are being followed and she has received both Phenobarbital and Ativan. She remains awake and alert (intermittent confusion, family also notes that she is not at her baseline), amenable to po intake this morning. Brother and mother at bedside for visit today. Exam Narrative: Exam Narrative: GEN: Alert, cognitive impairment evident (can't remember where she is working) HEENT: Ecchymosis and edema around L orbit and cheek, EOMIs intact CV: RRR, + systolic murmur heart best L midclavicular line R: Air movement adequate, mild rhonchi bilateral bases, clears with cough Ext: wwp, + clubbing BUEs, no concerning edema Skin: scattered bruising over extremities Neuro: No focal deficits, no resting tremor Psych: Mild perseveration regarding discharge, redirectable Const: Vital Signs, click to edit/add: Vital Signs - 24 hr 12/25/22 14:33 12/25/22 16:19 12/25/22 17:00 Temperature 96.9 F L Pulse Rate Pulse Rate [Pulse Oximeter] 80 78 78 Respiratory Rate 14 12 Blood Pressure Blood Pressure [Le ft Arm] Blood Pressure [Ri ght Upper Arm] 163/90 H 159/98 H Pulse Oximetry 100 95 Oxygen Delivery Me thod Room Air Room Air Oxygen Flow Rate 12/25/22 17:24 12/25/22 17:25 12/25/22 17:30 Temperature Pulse Rate 89 88 80 Pulse Rate [Pulse Oximeter] Respiratory Rate Blood Pressure Blood Pressure [Le ft Arm] Blood Pressure [Ri ght Upper Arm] Pulse Oximetry 89 96 98 Oxygen Delivery Me thod Oxygen Flow Rate 12/25/22 17:38 12/25/22 17:32 12/25/22 17:45 Temperature Pulse Rate 107 H 99 Pulse Rate [Pulse Oximeter] Respiratory Rate Blood Pressure 161/97 H Blood Pressure [Le ft Arm] Blood Pressure [Ri ght Upper Arm] Pulse Oximetry 96 76 L 98 Oxygen Delivery Me thod Nasal Cannula Oxygen Flow Rate 2 12/25/22 17:53 12/25/22 17:55 12/25/22 18:00 Temperature Pulse Rate 99 94 101 H Pulse Rate [Pulse Oximeter] Respiratory Rate Blood Pressure 182/115 H 165/94 H Blood Pressure [Le ft Arm] Blood Pressure [Ri ght Upper Arm] Pulse Oximetry 100 100 97 Oxygen Delivery Me thod Oxygen Flow Rate 12/25/22 18:15 12/25/22 18:28 12/25/22 18:30 Temperature Pulse Rate 90 108 H 108 H Pulse Rate [Pulse Oximeter] Respiratory Rate Blood Pressure 145/103 H Blood Pressure [Le ft Arm] Blood Pressure [Ri ght Upper Arm] Pulse Oximetry 100 91 96 Oxygen Delivery Me thod Oxygen Flow Rate 12/25/22 18:33 12/25/22 18:37 12/25/22 18:43 Temperature Pulse Rate 111 H 118 H 116 H Pulse Rate [Pulse Oximeter] Respiratory Rate Blood Pressure 148/105 H 145/116 H 141/99 H Blood Pressure [Le ft Arm] Blood Pressure [Ri ght Upper Arm] Pulse Oximetry 98 100 86 L Oxygen Delivery Me thod Oxygen Flow Rate 12/25/22 18:45 12/25/22 18:46 12/25/22 18:51 Temperature Pulse Rate 115 H 109 H 111 H Pulse Rate [Pulse Oximeter] Respiratory Rate Blood Pressure 133/87 126/82 Blood Pressure [Le ft Arm] Blood Pressure [Ri ght Upper Arm] Pulse Oximetry 87 L 97 95 Oxygen Delivery Me thod Oxygen Flow Rate 12/25/22 18:57 12/25/22 19:00 12/25/22 19:01 Temperature Pulse Rate 113 H 111 H 110 H Pulse Rate [Pulse Oximeter] Respiratory Rate Blood Pressure 117/87 118/90 H Blood Pressure [Le ft Arm] Blood Pressure [Ri ght Upper Arm] Pulse Oximetry 99 100 100 Oxygen Delivery Me thod Oxygen Flow Rate 12/25/22 19:02 12/25/22 19:06 12/25/22 19:11 Temperature Pulse Rate 110 H 108 H 105 H Pulse Rate [Pulse Oximeter] Respiratory Rate Blood Pressure 120/81 112/82 Blood Pressure [Le ft Arm] Blood Pressure [Ri ght Upper Arm] Pulse Oximetry 95 97 97 Oxygen Delivery Me thod Oxygen Flow Rate 12/25/22 19:15 12/25/22 19:16 12/25/22 19:22 Temperature Pulse Rate 105 H 105 H 104 H Pulse Rate [Pulse Oximeter] Respiratory Rate Blood Pressure 118/75 114/80 Blood Pressure [Le ft Arm] Blood Pressure [Ri ght Upper Arm] Pulse Oximetry 96 96 97 Oxygen Delivery Me thod Oxygen Flow Rate 12/25/22 19:26 12/25/22 21:56 12/25/22 21:45 Temperature 98.4 F Pulse Rate 103 H Pulse Rate [Pulse Oximeter] 99 Respiratory Rate 16 Blood Pressure 110/74 Blood Pressure [Le ft Arm] 106/71 Blood Pressure [Ri ght Upper Arm] Pulse Oximetry 96 99 99 Oxygen Delivery Me thod Nasal Cannula Oxygen Flow Rate 1 12/25/22 22:00 12/25/22 22:51 12/25/22 22:51 Temperature 98.4 F Pulse Rate Pulse Rate [Pulse Oximeter] 99 Respiratory Rate 16 16 Blood Pressure Blood Pressure [Le ft Arm] 106/71 Blood Pressure [Ri ght Upper Arm] Pulse Oximetry 99 99 99 Oxygen Delivery Me thod Nasal Cannula Nasal Cannula Oxygen Flow Rate 1 1 12/25/22 22:50 12/25/22 23:50 12/26/22 01:50 Temperature 98.4 F 97.6 F 98.4 F Pulse Rate Pulse Rate [Pulse Oximeter] 96 94 95 Respiratory Rate 18 16 16 Blood Pressure Blood Pressure [Le ft Arm] 93/65 86/57 L 111/77 Blood Pressure [Ri ght Upper Arm] Pulse Oximetry 99 99 100 Oxygen Delivery Me thod Nasal Cannula Nasal Cannula Room Air Oxygen Flow Rate 1 1 12/26/22 00:40 12/26/22 03:00 12/26/22 04:55 Temperature 98 F 98.4 F 97.9 F Pulse Rate Pulse Rate [Pulse Oximeter] 84 82 84 Respiratory Rate 16 16 16 Blood Pressure Blood Pressure [Le ft Arm] 90/63 126/80 Blood Pressure [Ri ght Upper Arm] Pulse Oximetry 98 100 Oxygen Delivery Me thod Nasal Cannula Room Air Oxygen Flow Rate 1 12/25/22 23:20 12/26/22 04:50 12/26/22 06:34 Temperature 97.8 F Pulse Rate 96 Pulse Rate [Pulse Oximeter] 81 Respiratory Rate 16 Blood Pressure Blood Pressure [Le ft Arm] 126/80 Blood Pressure [Ri ght Upper Arm] Pulse Oximetry 100 100 Oxygen Delivery Me thod Room Air Oxygen Flow Rate Labs Labs: Laboratory Results - last 24 hr 12/25/22 12/25/22 12/25/22 16:54 16:55 17:00 WBC RBC Hgb Hct MCV MCH MCHC RDW Coeff of Evangelina Plt Count Neut % (Auto) Lymph % (Auto) [place] % (Auto) Eos % (Auto) Baso % (Auto) Neut # (Auto) Lymph # (Auto) [place] # (Auto) Eos # (Auto) Baso # (Auto) INR APTT VBG pH VBG pCO2 VBG pO2 VBG HCO3 Sodium Potassium Chloride Carbon Dioxide BUN Creatinine Estimated Creat Clear Estimated GFR Glucose Lactate Calcium Phosphorus Magnesium Total Bilirubin Direct Bilirubin AST ALT Alkaline Phosphatase Ammonia 24.0 Troponin I C-Reactive Protein Total Protein Albumin Lipase TSH Urine Color Yellow Urine Appearance Clear Urine pH 6.5 Ur Specific [place] 1.020 Urine Protein 3+ A Urine Glucose (UA) Trace A Urine Ketones Negative Urine Blood 1+ A Urine Nitrite Negative Urine Bilirubin Negative Urine Urobilinogen 0.2 Ur Leukocyte Esterase Negative Urine RBC 2-5 A Urine WBC 0-2 Ur Squamous Epith Cells Few Urine Bacteria Few A Urine Opiates Screen Negative Ur Oxycodone Screen Negative Urine Methadone Screen Negative Ur Propoxyphene Screen Negative Ur Barbiturates Screen Negative U Tricyclic Antidepress Negative Ur Phencyclidine Scrn Negative Ur Amphetamines Screen Negative U Methamphetamines Scrn Negative U Benzodiazepines Scrn Negative Urine Cocaine Screen Negative U Marijuana (THC) Screen Negative Ur Drug Screen Comment See Note Ethyl Alcohol SARS-CoV-2 (PCR) SARS-CoV-2 Ag (Rapid) 12/25/22 12/25/22 12/25/22 17:00 17:00 19:20 WBC 9.58 RBC 3.64 L Hgb 12.1 Hct 33.2 MCV 91 MCH 33 MCHC 36 RDW Coeff of Evangelina 11.3 L Plt Count 249 Neut % (Auto) 71.4 Lymph % (Auto) 18.8 L [place] % (Auto) 9.3 Eos % (Auto) 0.0 Baso % (Auto) 0.1 Neut # (Auto) 6.84 Lymph # (Auto) 1.80 [place] # (Auto) 0.90 Eos # (Auto) 0.00 Baso # (Auto) 0.01 INR APTT VBG pH VBG pCO2 VBG pO2 VBG HCO3 Sodium 111 L* Potassium 4.0 Chloride 81 L Carbon Dioxide 23 BUN 5 Creatinine 0.2 L Estimated Creat Clear 251.68 Estimated GFR 146 Glucose 110 Lactate Calcium 8.3 L Phosphorus Magnesium Total Bilirubin 1.1 Direct Bilirubin 0.2 AST 62 H ALT 63 H Alkaline Phosphatase 60 Ammonia Troponin I 0.03 C-Reactive Protein < 0.5 L Total Protein 7.3 Albumin 4.6 Lipase 269 TSH Urine Color Urine Appearance Urine pH Ur Specific [place] Urine Protein Urine Glucose (UA) Urine Ketones Urine Blood Urine Nitrite Urine Bilirubin Urine Urobilinogen Ur Leukocyte Esterase Urine RBC Urine WBC Ur Squamous Epith Cells Urine Bacteria Urine Opiates Screen Ur Oxycodone Screen Urine Methadone Screen Ur Propoxyphene Screen Ur Barbiturates Screen U Tricyclic Antidepress Ur Phencyclidine Scrn Ur Amphetamines Screen U Methamphetamines Scrn U Benzodiazepines Scrn Urine Cocaine Screen U Marijuana (THC) Screen Ur Drug Screen Comment Ethyl Alcohol 0.02 SARS-CoV-2 (PCR) Negative SARS-CoV-2 SARS-CoV-2 Ag (Rapid) Cancelled 12/25/22 12/25/22 12/25/22 20:53 20:53 20:53 WBC RBC Hgb Hct MCV MCH MCHC RDW Coeff of Evangelina Plt Count Neut % (Auto) Lymph % (Auto) [place] % (Auto) Eos % (Auto) Baso % (Auto) Neut # (Auto) Lymph # (Auto) [place] # (Auto) Eos # (Auto) Baso # (Auto) INR APTT VBG pH 7.475 H VBG pCO2 36 L VBG pO2 68.6 H VBG HCO3 26 Sodium 112 L* Potassium Chloride Carbon Dioxide BUN Creatinine Estimated Creat Clear Estimated GFR Glucose Lactate Calcium Phosphorus Magnesium Total Bilirubin Direct Bilirubin AST ALT Alkaline Phosphatase Ammonia Troponin I 0.64 H* C-Reactive Protein Total Protein Albumin Lipase TSH Urine Color Urine Appearance Urine pH Ur Specific [place] Urine Protein Urine Glucose (UA) Urine Ketones Urine Blood Urine Nitrite Urine Bilirubin Urine Urobilinogen Ur Leukocyte Esterase Urine RBC Urine WBC Ur Squamous Epith Cells Urine Bacteria Urine Opiates Screen Ur Oxycodone Screen Urine Methadone Screen Ur Propoxyphene Screen Ur Barbiturates Screen U Tricyclic Antidepress Ur Phencyclidine Scrn Ur Amphetamines Screen U Methamphetamines Scrn U Benzodiazepines Scrn Urine Cocaine Screen U Marijuana (THC) Screen Ur Drug Screen Comment Ethyl Alcohol SARS-CoV-2 (PCR) SARS-CoV-2 Ag (Rapid) 12/25/22 12/26/22 12/26/22 20:55 02:00 06:06 WBC 5.88 RBC 3.32 L Hgb 10.9 L Hct 30.2 L MCV 91 MCH 33 MCHC 36 RDW Coeff of Evangelina 11.4 L Plt Count 213 Neut % (Auto) 64.3 Lymph % (Auto) 24.1 [place] % (Auto) 10.9 Eos % (Auto) 0.2 Baso % (Auto) 0.3 Neut # (Auto) 3.78 Lymph # (Auto) 1.42 [place] # (Auto) 0.60 Eos # (Auto) 0.01 Baso # (Auto) 0.02 INR 0.95 APTT 29 VBG pH VBG pCO2 VBG pO2 VBG HCO3 Sodium 115 L* Potassium Chloride Carbon Dioxide BUN Creatinine Estimated Creat Clear Estimated GFR Glucose Lactate Calcium Phosphorus Magnesium Total Bilirubin Direct Bilirubin AST ALT Alkaline Phosphatase Ammonia Troponin I 0.71 H* C-Reactive Protein Total Protein Albumin Lipase TSH Urine Color Urine Appearance Urine pH Ur Specific [place] Urine Protein Urine Glucose (UA) Urine Ketones Urine Blood Urine Nitrite Urine Bilirubin Urine Urobilinogen Ur Leukocyte Esterase Urine RBC Urine WBC Ur Squamous Epith Cells Urine Bacteria Urine Opiates Screen Ur Oxycodone Screen Urine Methadone Screen Ur Propoxyphene Screen Ur Barbiturates Screen U Tricyclic Antidepress Ur Phencyclidine Scrn Ur Amphetamines Screen U Methamphetamines Scrn U Benzodiazepines Scrn Urine Cocaine Screen U Marijuana (THC) Screen Ur Drug Screen Comment Ethyl Alcohol SARS-CoV-2 (PCR) SARS-CoV-2 Ag (Rapid) 12/26/22 12/26/22 12/26/22 06:06 06:06 06:06 WBC RBC Hgb Hct MCV MCH MCHC RDW Coeff of Evangelina Plt Count Neut % (Auto) Lymph % (Auto) [place] % (Auto) Eos % (Auto) Baso % (Auto) Neut # (Auto) Lymph # (Auto) [place] # (Auto) Eos # (Auto) Baso # (Auto) INR APTT VBG pH 7.541 H VBG pCO2 29 L VBG pO2 61.4 H VBG HCO3 24 Sodium 115 L* Potassium 2.7 L* Chloride 87 L Carbon Dioxide 21 BUN 3 L Creatinine 0.2 L Estimated Creat Clear 229.03 Estimated GFR 146 Glucose 107 Lactate Calcium 7.1 L Phosphorus 2.3 L Magnesium 1.7 Total Bilirubin Direct Bilirubin AST ALT Alkaline Phosphatase Ammonia Troponin I 0.47 H* C-Reactive Protein Total Protein Albumin Lipase 160 TSH 0.717 Urine Color Urine Appearance Urine pH Ur Specific [place] Urine Protein Urine Glucose (UA) Urine Ketones Urine Blood Urine Nitrite Urine Bilirubin Urine Urobilinogen Ur Leukocyte Esterase Urine RBC Urine WBC Ur Squamous Epith Cells Urine Bacteria Urine Opiates Screen Ur Oxycodone Screen Urine Methadone Screen Ur Propoxyphene Screen Ur Barbiturates Screen U Tricyclic Antidepress Ur Phencyclidine Scrn Ur Amphetamines Screen U Methamphetamines Scrn U Benzodiazepines Scrn Urine Cocaine Screen U Marijuana (THC) Screen Ur Drug Screen Comment Ethyl Alcohol SARS-CoV-2 (PCR) SARS-CoV-2 Ag (Rapid)
--- NOTE | 2022-12-26 08:00 | CRLHL7_ITS ---
For Patients: As a result of the Century Cures Act, medical imaging exams and procedure reports are released immediately into your electronic medical record. You may view this report before your referring provider. If you have questions, please contact your health care provider. INDICATION: Abnormal LFT, alcoholism TECHNIQUE: Ultrasound abdomen limited. Sonographic images of the right upper quadrant were obtained using chapman-scale and color Doppler images. COMPARISON: None. FINDINGS: Liver: Normal in size with slightly increased echotexture. No suspicious masses. No intrahepatic biliary dilatation. Gallbladder: No stones or sludge. Normal wall thickness. No pericholecystic fluid. Common bile duct: 6 mm. Pancreas: Not well visualized due to bowel gas artifact. Right kidney: Normal in size. Normal echotexture and cortex. No suspicious masses, stones, or hydronephrosis. Vasculature: Proximal abdominal aorta and IVC are unremarkable. IMPRESSION: Hepatic steatosis. Common bile duct upper limits of normal/borderline prominent, measuring 6 mm. Gallbladder appears unremarkable. Dictated by Nirav Quiros MD @ 12/26/2022 9:58:00 AM (Electronically Signed)
[2022-12-26] MEDS: THIAMINE 250 MG in 0.9 % SODIUM CHLORIDE 100 ml 100 ML 102.5 MG IVPB (09:03)
[2022-12-26] MEDS: PANTOPRAZOLE SODIUM 40 MG INJ IVP (09:51)
[2022-12-26] MEDS: MULTIVITAMIN/MINERALS 1 TABLET 1 TAB PO (09:51)
[2022-12-26] MEDS: IPRAT-ALBUT 0.5-2.5 MG/3 ML NEB 1 NEB IH ×3 (09:51→20:29)
[2022-12-26] MEDS: FOLIC ACID 1 MG TABLET PO (09:52)
[2022-12-26] MEDS: BUDESONIDE 0.5 MG/2ML NEB NEB ×2 (10:16→20:41)
[2022-12-26] MEDS: LORazepam 2 MG/ML inj IVP ×6 (11:03→21:13)
[2022-12-26 11:28] LABS: Chloride* 86 mmol/L (96-114)
[2022-12-26 11:29] LABS: Potassium* 3.4 mmol/L (3.6-5.1)
[2022-12-26 11:31] LABS: Creatinine* 0.3 mg/dL (0.5-1.5); Est. Creatinine Clearance* 152.69; Estimated Glomerular Filt Rate 132 ml/min
[2022-12-26 11:32] LABS: Blood Urea Nitrogen* 6 mg/dL (5-24); Calcium* 7.4 mg/dL (8.4-10.6); Carbon Dioxide* 26 mmol/L (20-32); Glucose* 114 mg/dL (60-115)
[2022-12-26 11:38] LABS: Sodium* 116 mmol/L (135-149)
--- NOTE | 2022-12-26 17:24 | PC.NURSE ---
shift note: pt pleasant but impulsive when needing to change position or go to bathroom. Pt needing reassurance and redirection throughout the day due to increasing confusion and repetitive requests to leave hospital to sleep in her own bed. pt confusion increased as day progressed. CIWA 9,14,11,18,4;. Pt medicated with ativan per CIWA protocol. LS dim. HR reg with murmur. BP wnl. temps 99.1,99.4 this afternoon. Lt eye bruised with lt head laceration slightly bleeding this afternoon. Pt observed rubbing at site and fixing hair into bun. Pt denied pain. IV patent. pt needing 1/ for transfers due to unsteady gait. pt had increased agitation and hallucinations this ameena. Pt stating I have to get the salami over there as pt started to reach over bed. Pt started to climb out of bed stating I have to get my watch and go to work. Family at bedside throughout the day providing support
--- NOTE | 2022-12-26 18:04 | PC.NURSE ---
shift note: Dr. Morrow updated on pt's current status with ciwa scores, prn ativan given and current activity.
[2022-12-26 20:16] LABS: Chloride* 93 mmol/L (96-114); Potassium* 3.4 mmol/L (3.6-5.1)
[2022-12-26 20:19] LABS: Blood Urea Nitrogen* 5 mg/dL (5-24); Calcium* 7.8 mg/dL (8.4-10.6); Carbon Dioxide* 24 mmol/L (20-32); Creatinine* 0.3 mg/dL (0.5-1.5); Est. Creatinine Clearance* 152.69; Estimated Glomerular Filt Rate 132 ml/min; Glucose* 115 mg/dL (60-115)
[2022-12-26] MEDS: NICOTINE 21 MG PATCH 1 PATCH TRANSDERMA (20:32)
[2022-12-26 20:37] LABS: Sodium* 121 mmol/L (135-149)
[2022-12-26] MEDS: ENOXAPARIN 30 MG/0.3ML INJ SUBCUT (20:43)
[2022-12-26] MEDS: SODIUM CHLORIDE 0.9 % (FLUSH) 10 ML SYRINGE 5 ML IVF ×2 (20:44→21:14)
[2022-12-26] MEDS: PHENobarbitaL 260 MG in 0.9 % SODIUM CHLORIDE 100 ml 100 ML 208 MG IVPB (20:51)
[2022-12-27] VITALS (28 sets, daily range): BP systolic 110–156; BP diastolic 74–99; PULSE 61–88; RESP 14–16; TEMP 35.7–36.7; O2SAT 96–100
[2022-12-27] MEDS: LORazepam 2 MG/ML inj IVP ×4 (02:04→17:54)
[2022-12-27] MEDS: SODIUM CHLORIDE 0.9 % (FLUSH) 10 ML SYRINGE 5 ML IVF ×4 (04:29→09:33)
[2022-12-27 04:41] LABS: Ionized Calcium* 1.04 mmol/L (1.11-1.30)
[2022-12-27 04:45] LABS: Basophils Absolute Auto 0.03 K/uL (0.00-0.30); Basophils Percent Auto 0.6 % (0.0-3.0); Eosinophils Absolute Auto 0.02 K/uL (0.00-0.50); Eosinophils Percent Auto 0.4 % (0.0-7.0); Hematocrit 28.4 % (33.0-51.0); Hemoglobin* 10.3 gm/dL (12.0-16.0); Immature Granulocytes Abs Auto 0.01 K/uL (0.00-0.30); Immature Granulocytes Pct Auto 0.2 %; Lymphocytes Absolute Auto 1.26 K/uL (0.90-2.90); Mean Corpuscular HGB Conc 36 gm/dL (32-36); Mean Corpuscular Hemoglobin 34 pg (26-34); Mean Corpuscular Volume 93 fL (80-100); Neutrophils Absolute Auto 2.92 K/uL (1.7-7.0); Neutrophils Percent Auto 62.8 % (42.0-72.0); Platelet Count* 219 K/uL (140-440); RDW Coefficient of Variation % 11.5 % (11.5-15.5); Red Blood Count 3.06 m/uL (4.00-5.20); White Blood Count* 4.66 K/uL (4.50-11.00)
[2022-12-27 04:47] LABS: Slide Review Reflex No
[2022-12-27 05:01] LABS: Albumin* 3.5 g/dL (3.3-5.0); Chloride* 97 mmol/L (96-114)
[2022-12-27 05:02] LABS: Potassium* 3.6 mmol/L (3.6-5.1)
[2022-12-27 05:04] LABS: Alanine Aminotransferase* 42 U/L (4-35); Alkaline Phosphatase* 50 U/L (40-150); Aspartate Amino Transferase* 50 U/L (12-35); Bilirubin Direct* 0.2 mg/dL (0.0-0.5); Bilirubin Total* 0.9 mg/dL (0.1-1.5); Blood Urea Nitrogen* 4 mg/dL (5-24); Calcium* 7.9 mg/dL (8.4-10.6); Carbon Dioxide* 21 mmol/L (20-32); Creatinine* 0.3 mg/dL (0.5-1.5); Est. Creatinine Clearance* 152.69; Estimated Glomerular Filt Rate 132 ml/min; Gamma Glutamyl Transpeptidase* 263 U/L (8-55); Glucose* 116 mg/dL (60-115); Total Protein* 5.9 g/dL (6.0-8.3)
[2022-12-27 05:05] LABS: Magnesium* 1.8 mg/dL (1.5-2.6)
[2022-12-27 05:13] LABS: NT Pro B Type NatriureticPept* 2550 pg/mL
[2022-12-27 05:17] LABS: Sodium* 121 mmol/L (135-149)
--- NOTE | 2022-12-27 06:38 | PC.NURSE ---
Pt with stable VS. Did have some increase in agitation and wanting to leave and go home or go out for a cigarette. When explained to her why she couldn't do that she said to me she was going to escape and attempted to get out of bed. She is very unsteady and tremulous when doing this. She remained on this thought process and eventually was given 2mg of Ativan which did nothing for her. Spoke with charge nurse who did speak with MD and a one time dose of Phenabarb was ordered and given. This did help wth the agitation. She also got a dose of 2mg of Ativan after the phenabarb. She then was able to rest. Up with 1A and gait belt. She has become more unsteady and tremulous as the night has gone on. Her whole body was shaking the last time I had her up at around 4am. Ativan was given. She is sleeping comfortably at tahis time.
[2022-12-27] MEDS: 0.9 % SODIUM CHLORIDE 1000 ml 1,000 ML 125 ML IV ×2 (06:48→20:53)
[2022-12-27] MEDS: PHENobarbitaL 130 MG in 0.9 % SODIUM CHLORIDE 100 ml 100 ML 204 MG IVPB (08:19)
[2022-12-27] MEDS: POTASSIUM CHLORIDE 10 MEQ CAPSULE ER 20 MEQ PO (08:21)
[2022-12-27] MEDS: BUDESONIDE 0.5 MG/2ML NEB NEB (09:31)
[2022-12-27] MEDS: METOPROLOL SUCCINATE (XL) 25 MG TAB PO (09:31)
[2022-12-27] MEDS: MULTIVITAMIN/MINERALS 1 TABLET 1 TAB PO (09:31)
[2022-12-27] MEDS: FOLIC ACID 1 MG TABLET PO (09:31)
[2022-12-27] MEDS: IPRAT-ALBUT 0.5-2.5 MG/3 ML NEB 1 NEB IH ×2 (09:31→15:05)
[2022-12-27] MEDS: PANTOPRAZOLE SODIUM 40 MG INJ IVP (09:33)
[2022-12-27] MEDS: THIAMINE 250 MG in 0.9 % SODIUM CHLORIDE 100 ml 100 ML 102.5 MG IVPB (11:37)
--- NOTE | 2022-12-27 11:48 | PM.IMPN1 ---
Progress Note: A&P Assessment and plan (1) Hyponatremia: Problem details: - 111 on admission, improving in a slow and appropriate manner - continue to follow closely, anticipate it will continue to normalize with low dose IVFs, po intake, and ETOH cessation Status: Acute (2) Abnormal liver function tests: Problem details: - alcoholic hepatitis vs cirrhosis vs HAMEED vs other - continue to follow - abdominal ultrasound completed 12/26 with formal radiology read below. Does not appear to have acute surgical needs, our General Surgeon is aware of patient IMPRESSION: 1. Hepatic steatosis. 2. Common bile duct upper limits of normal/borderline prominent, measuring 6mm. 3. Gallbladder appears unremarkable. Status: Acute (3) Alcohol withdrawal: Problem details: - Possible alcohol withdrawal seizure, possible evolving delirium tremens - follow CIWA, scheduled Phenobarbital and prn Ativan as needed for management Status: Acute (4) Closed head injury: Problem details: - CT scan of head negative for acute findings on 12/25/2022 Status: Acute (5) Seizure: Problem details: - Tonic clonic seizure lasting 45 seconds, possibly related to severe hyponatremia as well as alcohol withdrawal - no recurrent seizures since admission Status: Acute (6) Tobacco dependence: Problem details: - tolerating patch during stay Status: Acute (7) Encephalopathy acute: Problem details: - Multifactorial: Hyponatremia, alcohol withdrawal, postictal Status: Acute (8) Elevated troponin: Problem details: - likely demand ischemia from ETOH use, fall - peak at 0.71, patient asymptomatic, started low dose Metoprolol 12/27 for TTE findings - TTE performed 12/26 Final Impressions: 1. Normal left ventricular size, normal wall thickness, normal global systolic function, calculated EF of 63 %. 2. Mildly enlarged left atrium. 3. Right ventricular cavity size is normal, global systolic RV function is normal. 4. The aortic valve is trileaflet and normal, no stenosis and moderate regurgitation. 5. Mid anterior septum segment and mid anterior segment are abnormal. Status: Acute (9) Normocytic anemia: Problem details: - dilutional vs baseline. Normal MCV - No evidence of acute bleeding - PPI (12/26), guaiac stools Status: Acute Time Spent With Patient Total time spent: - per above - Lovenox for ppx - Mother updated at bedside, questions answered - will recommend ETOH treatment facility upon d/c, unclear if patient will comply Subjective Date Seen: 12/27/22 Interval history: Charles was admitted to our CCU on 12/25 after a fall at home, found to severe hyponatremia in the setting of chronic ETOH overuse. She is a known daily alcohol user, CIWAs are being followed. She is currently receiving scheduled Phenobarbital and prn Ativan. Has had some intermittent anxiety regarding hospital stay, no other concerns. Mother present for visit today. Exam Narrative: Exam Narrative: GEN: Patient is resting comfortably in bed during my visit HEENT: Ecchymosis and edema around L orbit and cheek, EOMIs intact. Hemostatic scalp laceration L parietal region CV: RRR, + systolic murmur heart best L midclavicular line R: Air movement adequate, breathing comfortably without any concerning wheezing Ext: wwp, + clubbing BUEs, no concerning edema Skin: scattered bruising over extremities Neuro: sas observed to be ambulating to bathroom with nursing staff earlier; unsteady and requiring assistance Psych: no perseveration during my visit today Const: Vital Signs, click to edit/add: Vital Signs - 24 hr 12/26/22 14:00 12/26/22 14:01 12/26/22 14:55 Temperature 99.1 F 99.1 F 98.1 F Pulse Rate Pulse Rate [Pulse Oximeter] 91 91 90 Respiratory Rate 16 16 16 Blood Pressure [Le ft Arm] 103/68 103/80 126/90 H Pulse Oximetry 100 100 100 Oxygen Delivery Me thod Room Air Room Air Room Air Oxygen Flow Rate 12/26/22 15:58 12/26/22 15:00 12/26/22 17:05 Temperature 99.4 F 99.2 F 97.5 F L Pulse Rate Pulse Rate [Pulse Oximeter] 90 90 99 Respiratory Rate 16 16 14 Blood Pressure [Le ft Arm] 126/90 H 126/90 H 118/72 Pulse Oximetry 100 100 99 Oxygen Delivery Me thod Room Air Room Air Room Air Oxygen Flow Rate 12/26/22 15:00 12/26/22 18:00 12/26/22 19:20 Temperature 97.1 F L 97.2 F L Pulse Rate Pulse Rate [Pulse Oximeter] 91 69 Respiratory Rate 16 16 16 Blood Pressure [Le ft Arm] 129/78 126/84 Pulse Oximetry 100 100 Oxygen Delivery Me thod Room Air Room Air Oxygen Flow Rate 12/26/22 19:48 12/26/22 21:05 12/26/22 23:48 Temperature 97.2 F L 97.3 F L Pulse Rate 84 Pulse Rate [Pulse Oximeter] 79 71 Respiratory Rate 16 Blood Pressure [Le ft Arm] 97/69 110/73 Pulse Oximetry [address] [facility] O[facility] Flow Rate 1 12/27/22 00:28 12/27/22 01:40 12/27/22 01:42 Temperature 97.3 F L 97.3 F L Pulse Rate Pulse Rate [Pulse Oximeter] 71 65 Respiratory Rate 16 16 14 Blood Pressure [Le ft Arm] 110/78 116/82 116/82 Pulse Oximetry 98 [address] [facility] Room Air Room Air Oxygen Flow Rate 12/27/22 02:23 12/27/22 03:15 12/27/22 03:18 Temperature 97.3 F L 97.3 F L Pulse Rate Pulse Rate [Pulse Oximeter] 77 65 65 Respiratory Rate 14 16 16 Blood Pressure [Le ft Arm] 116/82 122/84 Pulse Oximetry 98 [address] [facility] Room Air Room Air Oxygen Flow Rate 12/27/22 04:34 12/27/22 05:46 12/27/22 06:20 Temperature 97.5 F L Pulse Rate Pulse Rate [Pulse Oximeter] 63 Respiratory Rate 14 16 Blood Pressure [Le ft Arm] 127/82 126/76 Pulse Oximetry 99 [address] [facility] Room Air Oxygen Flow Rate 12/27/22 07:30 12/27/22 07:00 12/27/22 08:15 Temperature 98.1 F 98.1 F 96.7 F L Pulse Rate Pulse Rate [Pulse Oximeter] 73 73 79 Respiratory Rate 16 16 16 Blood Pressure [Le ft Arm] 147/87 H 147/87 H 156/99 H Pulse Oximetry 98 98 100 Oxygen Delivery Me od Room Air Room Air Room Air Oxygen Flow Rate 12/27/22 08:55 12/27/22 10:00 12/27/22 08:00 Temperature 96.2 F L 96.8 F L Pulse Rate Pulse Rate [Pulse Oximeter] 74 63 63 Respiratory Rate 16 16 16 Blood Pressure [Le ft Arm] 138/96 H 114/74 Pulse Oximetry [address] [facility] Room Air Oxygen Flow Rate 12/27/22 11:42 Temperature 96.9 F L Pulse Rate Pulse Rate [Pulse Oximeter] 72 Respiratory Rate 16 Blood Pressure [Le ft Arm] 139/89 Pulse Oximetry 96 Oxygen Delivery Me thod Room Air Oxygen Flow Rate Labs Labs: Laboratory Results - last 24 hr 12/26/22 12/27/22 12/27/22 19:24 04:20 04:20 WBC RBC Hgb Hct MCV MCH MCHC RDW Coeff of Evangelina Plt Count Neut % (Auto) Lymph % (Auto) [place] % (Auto) Eos % (Auto) Baso % (Auto) Neut # (Auto) Lymph # (Auto) [place] # (Auto) Eos # (Auto) Baso # (Auto) Sodium 121 L* 121 L* Potassium 3.4 L 3.6 Chloride 93 L 97 Carbon Dioxide 24 21 BUN 5 4 L Creatinine 0.3 L 0.3 L Estimated Creat Clear 152.69 152.69 Estimated GFR 132 132 Glucose 115 116 H Calcium 7.8 L 7.9 L Ionized Calcium Stephen 1.04 L Magnesium 1.8 Total Bilirubin 0.9 Direct Bilirubin 0.2 GGT 263 H AST 50 H ALT 42 H Alkaline Phosphatase 50 NT-Pro-B Natriuret Pep 2550 Total Protein 5.9 L Albumin 3.5 12/27/22 04:20 WBC 4.66 RBC 3.06 L Hgb 10.3 L Hct 28.4 L MCV 93 MCH 34 MCHC 36 RDW Coeff of Evangelina 11.5 Plt Count 219 Neut % (Auto) 62.8 Lymph % (Auto) 27.0 [place] % (Auto) 9.0 Eos % (Auto) 0.4 Baso % (Auto) 0.6 Neut # (Auto) 2.92 Lymph # (Auto) 1.26 [place] # (Auto) 0.40 Eos # (Auto) 0.02 Baso # (Auto) 0.03 Sodium Potassium Chloride Carbon Dioxide BUN Creatinine Estimated Creat Clear Estimated GFR Glucose Calcium Ionized Calcium Stephen Magnesium Total Bilirubin Direct Bilirubin GGT AST ALT Alkaline Phosphatase NT-Pro-B Natriuret Pep Total Protein Albumin
[2022-12-27] MEDS: LORazepam 1 MG TABLET PO ×2 (13:00→16:20)
--- NOTE | 2022-12-27 18:18 | PM.EN ---
Chart Event Note Time Seen by Provider: 18:00 Date Seen: 12/27/22 Chart Event Note: S: Patient is demanding to leave the hospital immediately. O: She is still actively withdrawing from alcohol, including disorientation, tremors, diaphoresis, tachycardia, anxiety, agitation. She is impulsive and clearly incapable of understanding her current situation and circumstances, and not capable of reasoning or making informed decisions at this time. Her gait is still unstable, requiring total assist of nurse to help her walk from bathroom back to bed - the nurse had to literally carry her back to bed in order to prevent a fall. A: Patient is in imminent danger of hurting herself if we do not continue to intervene on her behalf. Patient still actively withdrawing from alcohol and on verge of developing delirium tremens. Still has severe hyponatremia, but improving from admission gradually with management efforts. P: Phenobarbital 260 mg IV now. Continue with CIWA driven administration of lorazepam. May need to implement a 72-hour hold if she continues to insist on leaving. Continue with support from nursing staff and security to protect and manage this patient optimally.
[2022-12-27] MEDS: PHENobarbitaL 260 MG in 0.9 % SODIUM CHLORIDE 100 ml 100 ML 208 MG IVPB (18:32)
--- NOTE | 2022-12-27 18:37 | PC.NURSE ---
shift note: Vss stable throughout the day. IV patent. LS clr. pt tolerating regular diet. pt needing 2 assist/GB to bathroom. Family present at bedside supporting pt. Pt assisted with personal ADL's. pt medicated throughout the day with ativan per CIWA protocol. Pt responsive to treatment till 1800. Pt became increasingly agitated and was demanding to go home. Pt states I'm not suicidal. Pt states I'm going to drive myslf home. Unable to reorient and redirect pt of current health crisis. Pt trying to stand at side of bed in an unsafe manner. Pt has been 2 assist to bathroom throughout the day due to extreme l/e weakness and severe all over body tremors. Security notified and housekeeper manager notified. Attempts continued to reorient pt and keep her in a safe position to prevent falls. Dr. Morrow at bedside and talked with the pt. Orders to give Phenobarbital 260mg/IV. Pt also received 3mg ativan IV for CIWA score of 31. Pt calmed staff presence within 40 mins. Pt currently resting in bed. 1:1 provided continuously through the day.
[2022-12-27] MEDS: NICOTINE 21 MG PATCH 1 PATCH TRANSDERMA (20:54)
[2022-12-28] VITALS (20 sets, daily range): BP systolic 123–153; BP diastolic 79–91; PULSE 61–82; RESP 16–18; TEMP 36–36.6; O2SAT 95–100; BMI 18.3
[2022-12-28] MEDS: LORazepam 2 MG/ML inj IVP ×2 (00:28→06:20)
[2022-12-28] MEDS: ENOXAPARIN 30 MG/0.3ML INJ SUBCUT ×2 (00:29→20:58)
[2022-12-28] MEDS: 0.9 % SODIUM CHLORIDE 1000 ml 1,000 ML 125 ML IV ×3 (04:06→20:42)
[2022-12-28] MEDS: PHENobarbitaL 130 MG in 0.9 % SODIUM CHLORIDE 100 ml 100 ML 204 MG IVPB (04:09)
--- NOTE | 2022-12-28 05:48 | PC.NURSE ---
Pt sleepy after getting Phenebarbital at 1800. became restless a little later and climbing out of bed and stating she had to go to a job interview and received a dose of 3mg Ativan. She slept peacefully with no attempts to leave. Up with alie assist of 2 to the BSC. VSS she is on RA. Phenebarb was changed to Q8H and less Ativan is being used. She is only oriented to self at this time.
[2022-12-28 06:43] LABS: Basophils Absolute Auto 0.03 K/uL (0.00-0.30); Basophils Percent Auto 0.6 % (0.0-3.0); Eosinophils Absolute Auto 0.03 K/uL (0.00-0.50); Eosinophils Percent Auto 0.6 % (0.0-7.0); Hematocrit 29.9 % (33.0-51.0); Hemoglobin* 10.7 gm/dL (12.0-16.0); Immature Granulocytes Abs Auto 0.03 K/uL (0.00-0.30); Immature Granulocytes Pct Auto 0.6 %; Lymphocytes Absolute Auto 1.49 K/uL (0.90-2.90); Lymphocytes Percent Auto 31.6 % (20-44); Mean Corpuscular HGB Conc 36 gm/dL (32-36); Mean Corpuscular Hemoglobin 33 pg (26-34); Mean Corpuscular Volume 93 fL (80-100); Neutrophils Absolute Auto 2.61 K/uL (1.7-7.0); Neutrophils Percent Auto 55.6 % (42.0-72.0); Platelet Count* 248 K/uL (140-440); RDW Coefficient of Variation % 11.8 % (11.5-15.5); Red Blood Count 3.21 m/uL (4.00-5.20); White Blood Count* 4.71 K/uL (4.50-11.00)
[2022-12-28 06:56] LABS: Albumin* 3.4 g/dL (3.3-5.0); Chloride* 98 mmol/L (96-114)
[2022-12-28 06:57] LABS: Potassium* 3.4 mmol/L (3.6-5.1)
[2022-12-28 06:58] LABS: Slide Review Reflex No
[2022-12-28 06:59] LABS: Aspartate Amino Transferase* 48 U/L (12-35); Bilirubin Direct* 0.2 mg/dL (0.0-0.5); Bilirubin Total* 0.5 mg/dL (0.1-1.5); Blood Urea Nitrogen* 2 mg/dL (5-24); Carbon Dioxide* 20 mmol/L (20-32); Creatinine* 0.2 mg/dL (0.5-1.5); Est. Creatinine Clearance* 229.03; Estimated Glomerular Filt Rate 146 ml/min; Glucose* 112 mg/dL (60-115); Total Protein* 5.9 g/dL (6.0-8.3)
[2022-12-28 07:00] LABS: Alanine Aminotransferase* 43 U/L (4-35); Alkaline Phosphatase* 52 U/L (40-150); Calcium* 8.1 mg/dL (8.4-10.6); Magnesium* 1.5 mg/dL (1.5-2.6)
[2022-12-28 07:18] LABS: Sodium* 123 mmol/L (135-149)
--- NOTE | 2022-12-28 07:31 | P.IMPN_ITS ---
Progress Note: A&P Assessment and plan (1) Hyponatremia: Problem details: - 111 on admission, improving in a slow and appropriate manner (up to 123 on 12/28) with low dose IVFs, po intake, and ETOH cessation Status: Acute (2) Abnormal liver function tests: Problem details: - alcoholic hepatitis vs cirrhosis vs HAMEED vs other - continue to follow - abdominal ultrasound completed 12/26 with formal radiology read below. Does not appear to have acute surgical needs, our General Surgeon is aware of patient IMPRESSION: 1. Hepatic steatosis. 2. Common bile duct upper limits of normal/borderline prominent, measuring 6mm. 3. Gallbladder appears unremarkable. Status: Acute (3) Alcohol withdrawal: Problem details: - Possible alcohol withdrawal seizure, possible evolving delirium tremens - follow CIWA, scheduled Phenobarbital and prn Ativan as needed for management Status: Acute (4) Closed head injury: Problem details: - CT scan of head negative for acute findings on 12/25/2022 Status: Acute (5) Seizure: Problem details: - Tonic clonic seizure lasting 45 seconds, possibly related to severe h yponatremia as well as alcohol withdrawal - no recurrent seizures since admission Status: Acute (6) Tobacco dependence: Problem details: - tolerating patch during stay Status: Acute (7) Encephalopathy acute: Problem details: - Multifactorial: Hyponatremia, alcohol withdrawal, postictal Status: Acute (8) Elevated troponin: Problem details: - likely demand ischemia from ETOH use, fall - peak at 0.71, patient asymptomatic, started low dose Metoprolol 12/27 for TTE findings - TTE performed 12/26 Final Impressions: 1. Normal left ventricular size, normal wall thickness, normal global systolic function, calculated EF of 63 %. 2. Mildly enlarged left atrium. 3. Right ventricular cavity size is normal, global systolic RV function is normal. 4. The aortic valve is trileaflet and normal, no stenosis and moderate regurgitation. 5. Mid anterior septum segment and mid anterior segment are abnormal. Status: Acute (9) Normocytic anemia: Problem details: - dilutional vs baseline. Normal MCV - No evidence of acute bleeding - PPI (12/26), guaiac stools Status: Acute (10) Alcohol dependence: Problem details: - with associated laboratory abnormalities, encephalopathy, withdrawal - patient has been advised to abstain completely from alcohol, has been told in no uncertain terms that she will if she continues drinking; Family also aware Status: Acute Plan - per above - lovenox for ppx - parents updated at bedside, questions answered Subjective Date Seen: 12/28/22 Interval history: Charles became agitated and perseverative regarding discharge last evening, Phenobarbital dosing increased with good results. Patient remains stable with no harm to self or others at this time. She denies pain and is tolerating po intake. Labs continue to improve, VS within normal limits on current medication regimen. Exam Narrative: Exam Narrative: GEN: Patient is awake and sitting up in bedside chair HEENT: Ecchymosis and edema around L orbit and cheek, stable. Hemostatic scalp laceration L parietal region, unchanged CV: RRR, + systolic murmur heart best L midclavicular line R: Air movement adequate, breathing comfortably without any concerning wheezing Ext: Wearing Emilio hose, + clubbing BUEs, no concerning edema Skin: scattered bruising over extremities Neuro: No focal deficits Psych: + psychomotor slowing today with flat affect, states that she is not interested in rehab Const: Vital Signs, click to edit/add: Vital Signs - 24 hr 12/27/22 08:15 12/27/22 08:55 12/27/22 10:00 Temperature 96.7 F L 96.2 F L 96.8 F L Pulse Rate Pulse Rate [Pulse Oximeter] 79 74 63 Respiratory Rate 16 16 16 Blood Pressure [Le ft Arm] 156/99 H 138/96 H 114/74 Pulse Oximetry 100 100 100 Oxygen Delivery Me thod Room Air Room Air Room Air Oxygen Flow Rate 12/27/22 08:00 12/27/22 11:42 12/27/22 12:51 Temperature 96.9 F L 96.9 F L Pulse Rate Pulse Rate [Pulse Oximeter] 63 72 85 Respiratory Rate 16 16 16 Blood Pressure [Le ft Arm] 139/89 115/78 Pulse Oximetry 96 100 Oxygen Delivery Me thod Room Air Room Air Oxygen Flow Rate 12/27/22 11:00 12/27/22 14:11 12/27/22 15:09 Temperature 96.9 F L 97.1 F L 97.2 F L Pulse Rate Pulse Rate [Pulse Oximeter] 85 69 68 Respiratory Rate 16 16 16 Blood Pressure [Le ft Arm] 139/89 129/81 126/82 Pulse Oximetry 100 100 100 Oxygen Delivery Me thod Room Air Room Air Room Air Oxygen Flow Rate 12/27/22 15:00 12/27/22 16:01 12/27/22 19:42 Temperature 97.2 F L 97 F L 97 F L Pulse Rate Pulse Rate [Pulse Oximeter] 68 88 69 Respiratory Rate 16 16 16 Blood Pressure [Le ft Arm] 126/82 118/82 114/76 Pulse Oximetry 100 100 98 Oxygen Delivery Me thod Room Air Room Air Room Air Oxygen Flow Rate 1 12/27/22 19:50 12/27/22 21:25 12/27/22 21:25 Temperature 97 F L 97 F L 97 F L Pulse Rate Pulse Rate [Pulse Oximeter] 69 75 75 Respiratory Rate 16 16 16 Blood Pressure [Le ft Arm] 114/76 116/79 116/79 Pulse Oximetry 98 99 Oxygen Delivery Me thod Room Air Room Air Room Air Oxygen Flow Rate 12/27/22 23:33 12/27/22 23:33 12/27/22 23:46 Temperature 97 F L Pulse Rate Pulse Rate [Pulse Oximeter] 70 70 Respiratory Rate 16 16 Blood Pressure [Le ft Arm] 128/89 128/89 Pulse Oximetry 99 99 Oxygen Delivery Me thod Room Air Room Air Oxygen Flow Rate 1 12/28/22 00:32 12/28/22 00:47 12/28/22 01:30 Temperature 97.2 F L 97.2 F L Pulse Rate 69 Pulse Rate [Pulse Oximeter] 72 63 Respiratory Rate 16 16 Blood Pressure [Le ft Arm] 123/79 127/91 H Pulse Oximetry 99 95 Oxygen Delivery Me thod Room Air Room Air Oxygen Flow Rate 12/28/22 03:20 12/28/22 03:20 12/28/22 05:30 Temperature 96.8 F L 96.8 F L 96.8 F L Pulse Rate Pulse Rate [Pulse Oximeter] 61 61 64 Respiratory Rate 16 16 16 Blood Pressure [Le ft Arm] 134/84 134/84 136/84 Pulse Oximetry 100 100 Oxygen Delivery Me thod Room Air Room Air Room Air Oxygen Flow Rate 12/28/22 06:26 12/28/22 06:29 Temperature 97.2 F L Pulse Rate Pulse Rate [Pulse Oximeter] 69 Respiratory Rate 16 Blood Pressure [Le ft Arm] 153/91 H Pulse Oximetry 100 100 Oxygen Delivery Me thod Room Air Oxygen Flow Rate Labs Labs: Laboratory Results - last 24 hr 12/28/22 12/28/22 06:07 06:07 WBC 4.71 RBC 3.21 L Hgb 10.7 L Hct 29.9 L MCV 93 MCH 33 MCHC 36 RDW Coeff of Evangelina 11.8 Plt Count 248 Neut % (Auto) 55.6 Lymph % (Auto) 31.6 [place] % (Auto) 11.0 Eos % (Auto) 0.6 Baso % (Auto) 0.6 Neut # (Auto) 2.61 Lymph # (Auto) 1.49 [place] # (Auto) 0.50 Eos # (Auto) 0.03 Baso # (Auto) 0.03 Sodium 123 L* Potassium 3.4 L Chloride 98 Carbon Dioxide 20 BUN 2 L Creatinine 0.2 L Estimated Creat Clear 229.03 Estimated GFR 146 Glucose 112 Calcium 8.1 L Magnesium 1.5 Total Bilirubin 0.5 Direct Bilirubin 0.2 AST 48 H ALT 43 H Alkaline Phosphatase 52 Total Protein 5.9 L Albumin 3.4
[2022-12-28] MEDS: BUDESONIDE 0.5 MG/2ML NEB NEB (08:52)
[2022-12-28] MEDS: PANTOPRAZOLE SODIUM 40 MG INJ IVP (08:52)
[2022-12-28] MEDS: IPRAT-ALBUT 0.5-2.5 MG/3 ML NEB 1 NEB IH ×2 (08:52→14:36)
[2022-12-28] MEDS: SODIUM CHLORIDE 0.9 % (FLUSH) 10 ML SYRINGE 5 ML IVF ×2 (08:57→20:58)
[2022-12-28] MEDS: POTASSIUM CHLORIDE 10 MEQ CAPSULE ER 20 MEQ PO ×2 (09:53→17:26)
[2022-12-28] MEDS: METOPROLOL SUCCINATE (XL) 25 MG TAB PO (09:53)
[2022-12-28] MEDS: MAGNESIUM OXIDE 400 MG TABLET PO ×2 (09:54→23:34)
[2022-12-28] MEDS: MULTIVITAMIN/MINERALS 1 TABLET 1 TAB PO (09:54)
[2022-12-28] MEDS: FOLIC ACID 1 MG TABLET PO (09:54)
[2022-12-28] MEDS: THIAMINE 250 MG in 0.9 % SODIUM CHLORIDE 100 ml 100 ML 102.5 MG IVPB (10:15)
[2022-12-28] MEDS: PHENobarbitaL 32.4 MG TABLET 64.8 MG PO ×4 (10:35→23:34)
--- NOTE | 2022-12-28 12:10 | PC.SOCIAL ---
Receptionist Scheduler: NOEMI met with father, mother, and sister to discuss guardianship process per request in conversation with . SW provided contact information for [facility] as well as general education regarding typical process. Father and mother indicate that pt will discharge home to their house again when medically stable, as are pt's wishes, and they plan to follow up with [facility] as appropriate.
--- NOTE | 2022-12-28 18:34 | PC.NURSE ---
PATIENT ALERT TO SELF AND AWARE SHE IS IN A HOSPITAL BUT THOUGHT SHE WAS IN [place] THIS MORNING AND [place] THIS AFTERNOON, UNAWARE OF DATE/TIME, UP A2 WITH BELT TO BSC, UNSTEADY GAIT AND VERY SHAKY WHEN UP, FAMILY PRESENT OFF AND ON THROUGHOUT THE DAY AND APPEAR SUPPORTIVE, ACTIVE BOWEL SOUNDS BUT NO BOWEL MOVEMENT, CIAWS LESS THAN 9 HOWEVER AFTER SWITCHING TO ORAL PHENOBARBITAL TODAY PATIENT SLEPT HARD FOR ABOUT 3 HOURS, MD UPDATED AND CHANGED FROM Q4HR TO Q6HR, SPOKE WITH MD ABOUT TRYING ONE TABLET THIS AFTERNOON WELL, PER MD OKAY TO TRY, ATTEMPTED ONE TABLET SCHEDULED AT THIS TIME PATIENT AWAKE, OCCASIONALLY ATTEMPTING TO GET OUT OF CHAIR, SOME INCREASED ACTIVITY NOTED, ABOUT AN HOUR AFTER TABLET PATIENT CONTINUED TO INCREASE IN ACTIVITY AND EXPRESSED I NEED TO GO OUTSIDE AND SMOKE, JUST ONE, GRABBING AT ITEMS AROUND ROOM, AFTER SECOND TAB PATIENT ABLE TO CALM DOWN, ABLE TO SIT AND EAT SUPPER.
[2022-12-28] MEDS: NICOTINE 21 MG PATCH 1 PATCH TRANSDERMA (20:45)
[2022-12-29] VITALS (13 sets, daily range): BP systolic 119–164; BP diastolic 74–94; PULSE 59–77; RESP 16–18; TEMP 36.1–36.4; O2SAT 91–100
[2022-12-29] MEDS: IPRAT-ALBUT 0.5-2.5 MG/3 ML NEB 1 NEB IH ×4 (01:17→20:53)
[2022-12-29] MEDS: 0.9 % SODIUM CHLORIDE 1000 ml 1,000 ML 125 ML IV ×2 (03:03→10:58)
--- NOTE | 2022-12-29 04:03 | PC.NURSE ---
Pt began night very lethargic. Meds had to be delayed until 2330. Pt was unable to be woken. VS were stable. Pt finally awoke prior to midnight and HS meds were administered. Pt Was up until 0400. She was up A2 to voided via bedside commode several times. Very unsteady on feet. Pt does try to get out of bed on own and to go smoke cigarettes. ANETTE 1:[address] for safety.
[2022-12-29] MEDS: PHENobarbitaL 32.4 MG TABLET 64.8 MG PO ×3 (05:50→19:35)
[2022-12-29 07:37] LABS: Ionized Calcium* 1.09 mmol/L (1.11-1.30)
[2022-12-29 07:47] LABS: Basophils Percent Auto 0.9 % (0.0-3.0); Eosinophils Percent Auto 0.7 % (0.0-7.0); Hemoglobin* 10.3 gm/dL (12.0-16.0); Immature Granulocytes Pct Auto 0.7 %; Lymphocytes Percent Auto 30.3 % (20-44); Mean Corpuscular HGB Conc 34 gm/dL (32-36); Mean Corpuscular Hemoglobin 33 pg (26-34); Mean Corpuscular Volume 97 fL (80-100); Monocytes Percent Auto 9.2 % (0.0-11.0); Neutrophils Percent Auto 58.2 % (42.0-72.0); Platelet Count* 261 K/uL (140-440); RDW Coefficient of Variation % 12.3 % (11.5-15.5); Red Blood Count 3.09 m/uL (4.00-5.20); White Blood Count* 4.33 K/uL (4.50-11.00)
[2022-12-29 07:53] LABS: Slide Review Reflex No
[2022-12-29 08:00] LABS: Sodium* 127 mmol/L (135-149)
[2022-12-29 08:01] LABS: Albumin* 3.4 g/dL (3.3-5.0); Potassium* 3.8 mmol/L (3.6-5.1)
[2022-12-29 08:03] LABS: Creatinine* 0.3 mg/dL (0.5-1.5); Est. Creatinine Clearance* 152.69; Estimated Glomerular Filt Rate 132 ml/min
[2022-12-29 08:04] LABS: Alanine Aminotransferase* 39 U/L (4-35); Alkaline Phosphatase* 44 U/L (40-150); Aspartate Amino Transferase* 44 U/L (12-35); Bilirubin Total* 0.4 mg/dL (0.1-1.5); Blood Urea Nitrogen* 3 mg/dL (5-24); Carbon Dioxide* 21 mmol/L (20-32); Glucose* 120 mg/dL (60-115); Total Protein* 5.7 g/dL (6.0-8.3)
[2022-12-29 08:05] LABS: Calcium* 7.9 mg/dL (8.4-10.6); Magnesium* 1.7 mg/dL (1.5-2.6)
[2022-12-29] MEDS: FOLIC ACID 1 MG TABLET PO (08:17)
[2022-12-29] MEDS: MULTIVITAMIN/MINERALS 1 TABLET 1 TAB PO (08:17)
[2022-12-29] MEDS: PANTOPRAZOLE SODIUM 40 MG INJ IVP (08:17)
[2022-12-29] MEDS: METOPROLOL SUCCINATE (XL) 25 MG TAB PO (08:17)
[2022-12-29] MEDS: POTASSIUM CHLORIDE 10 MEQ CAPSULE ER 20 MEQ PO ×2 (08:17→18:04)
[2022-12-29 08:18] LABS: Chloride* 100 mmol/L (96-114)
[2022-12-29] MEDS: MAGNESIUM OXIDE 400 MG TABLET PO ×2 (08:18→20:55)
[2022-12-29] MEDS: THIAMINE 100 MG TABLET PO (08:18)
[2022-12-29] MEDS: SODIUM CHLORIDE 0.9 % (FLUSH) 10 ML SYRINGE 5 ML IVF ×2 (08:19→21:00)
[2022-12-29] MEDS: BUDESONIDE 0.5 MG/2ML NEB NEB ×2 (09:53→20:55)
--- NOTE | 2022-12-29 12:47 | PM.IMPN1 ---
Progress Note: A&P Assessment and plan (1) Hyponatremia: Problem details: - 111 on admission, improved appropriately with IV fluids, alcohol cessation, po intake - likely 2/2 ETOH use, poor po intake as an outpatient Status: Acute (2) Alcohol dependence: Problem details: - with associated laboratory abnormalities, encephalopathy, withdrawal - treating withdrawal with scheduled po Phenobarbital - patient has been advised to abstain completely from alcohol, not interested in cessation - family interested in pursuing guardianship; understands that patient would need a specialty/formal competency evaluation when not actively withdrawing Status: Acute (3) Abnormal liver function tests: Problem details: - alcoholic hepatitis vs cirrhosis vs HAMEED vs other - improving, continue to follow - abdominal ultrasound completed 12/26 with formal radiology read below. Does not appear to have acute surgical needs, our General Surgeon is aware of patient IMPRESSION: 1. Hepatic steatosis. 2. Common bile duct upper limits of normal/borderline prominent, measuring 6mm. 3. Gallbladder appears unremarkable. Status: Acute (4) Closed head injury: Problem details: - CT scan of head negative for acute findings on 12/25/2022 Status: Acute (5) Seizure: Problem details: - Tonic clonic seizure lasting 45 seconds, possibly related to severe hyponatremia as well as alcohol withdrawal - no recurrent seizures since admission Status: Acute (6) Tobacco dependence: Problem details: - tolerating patch during stay Status: Acute (7) Encephalopathy acute: Problem details: - Multifactorial: Hyponatremia, alcohol withdrawal, postictal - improving Status: Acute (8) Elevated troponin: Problem details: - likely demand ischemia from ETOH use, fall - peak at 0.71, patient asymptomatic, started low dose Metoprolol 12/27 for TTE findings - TTE performed 12/26 Final Impressions: 1. Normal left ventricular size, normal wall thickness, normal global systolic function, calculated EF of 63 %. 2. Mildly enlarged left atrium. 3. Right ventricular cavity size is normal, global systolic RV function is normal. 4. The aortic valve is trileaflet and normal, no stenosis and moderate regurgitation. 5. Mid anterior septum segment and mid anterior segment are abnormal. Status: Acute (9) Normocytic anemia: Problem details: - dilutional vs baseline. Normal MCV - No evidence of acute bleeding, no abdominal pain - PPI (12/26), guaiac stools Status: Acute Plan - continue Phenobarbital, taper as tolerated - PT and OT evaluating; patient may require TCU/SNF placement - Lovenox for ppx Subjective Date Seen: 12/29/22 Interval history: No acute events overnight. Patient remains on scheduled phenobarbital with less perseveration and agitation. Her labs continue to improve, vital signs are stable, and she is initiating therapies today. Exam Narrative: Exam Narrative: GEN: Patient is awake and sitting comfortably in bed HEENT: Bruising on left side of face remains stable, left parietal scalp lesion remains hemostatic, EOMIs CV: RRR, systolic murmur heard best at left sternal border without concerning features R: LCTA bilaterally without concerning wheezing, rales, or rhonchi Ext: wwp, no concerning edema, + clubbing bilateral hands Skin: Scattered bruising upper extremities, no active bleeding Psych: Mild psychomotor slowing, declines request to abstain from alcohol upon discharge Const: Vital Signs, click to edit/add: Vital Signs - 24 hr 12/28/22 14:47 12/28/22 14:47 12/28/22 19:42 Temperature 97.6 F 97.8 F Pulse Rate Pulse Rate [Pulse Oximeter] 62 62 64 Respiratory Rate 16 16 16 Blood Pressure [Le ft Arm] 135/83 Pulse Oximetry 97 97 Oxygen Delivery Me thod Room Air Room Air Oxygen Flow Rate 0 12/28/22 19:43 12/28/22 19:45 12/28/22 22:01 Temperature 97.8 F 97 F L Pulse Rate Pulse Rate [Pulse Oximeter] 64 64 69 Respiratory Rate 16 16 16 Blood Pressure [Le ft Arm] 135/83 134/91 H Pulse Oximetry 97 97 Oxygen Delivery Me thod Room Air Room Air Oxygen Flow Rate 0 12/28/22 22:38 12/28/22 22:41 12/29/22 01:55 Temperature 97 F L Pulse Rate Pulse Rate [Pulse Oximeter] 69 69 69 Respiratory Rate 16 16 16 Blood Pressure [Le ft Arm] 134/91 H Pulse Oximetry 97 Oxygen Delivery Me thod Room Air Oxygen Flow Rate 0 12/29/22 01:55 12/29/22 04:02 12/29/22 07:40 Temperature 97 F L 97 F L Pulse Rate Pulse Rate [Pulse Oximeter] 69 69 Respiratory Rate 16 16 Blood Pressure [Le ft Arm] 145/91 H 145/91 H Pulse Oximetry 99 99 100 Oxygen Delivery Sd thod Room Air Room Air Oxygen Flow Rate 0 12/29/22 07:40 12/29/22 08:10 12/29/22 08:10 Temperature 97.2 F L 97.2 F L Pulse Rate Pulse Rate [Pulse Oximeter] 59 L 59 L Respiratory Rate 16 16 16 Blood Pressure [Le ft Arm] 136/78 136/78 Pulse Oximetry 100 100 Oxygen Delivery Me thod Room Air Room Air Oxygen Flow Rate 12/29/22 10:29 12/29/22 11:20 12/29/22 11:35 Temperature 97.6 F 97.6 F Pulse Rate 77 Pulse Rate [Pulse Oximeter] 68 68 Respiratory Rate 16 16 Blood Pressure [Le ft Arm] 144/91 H 144/91 H Pulse Oximetry 99 99 Oxygen Delivery Me thod Room Air Room Air Oxygen Flow Rate Labs Labs: Laboratory Results - last 24 hr 12/29/22 12/29/22 12/29/22 07:00 07:00 07:00 WBC 4.33 L RBC 3.09 L Hgb 10.3 L Hct 30.0 L MCV 97 MCH 33 MCHC 34 RDW Coeff of Evangelina 12.3 Plt Count 261 Neut % (Auto) 58.2 Lymph % (Auto) 30.3 [place] % (Auto) 9.2 Eos % (Auto) 0.7 Baso % (Auto) 0.9 Neut # (Auto) 2.50 Lymph # (Auto) 1.30 [place] # (Auto) 0.40 Eos # (Auto) 0.00 Baso # (Auto) 0.00 Sodium 127 L Potassium 3.8 Chloride 100 Carbon Dioxide 21 BUN 3 L Creatinine 0.3 L Estimated Creat Clear 152.69 Estimated GFR 132 Glucose 120 H Calcium 7.9 L Ionized Calcium Stephen 1.09 L Magnesium 1.7 Total Bilirubin 0.4 AST 44 H ALT 39 H Alkaline Phosphatase 44 Total Protein 5.7 L Albumin 3.4
--- NOTE | 2022-12-29 14:23 | PC.NURSE ---
Pt cooperative during shift. Pt slept most of shift. Pt had some minor confusion. Per Physical Therapy Pt is 1 assist with walker.
[2022-12-29] MEDS: NICOTINE 21 MG PATCH 1 PATCH TRANSDERMA (20:53)
[2022-12-29] MEDS: ENOXAPARIN 30 MG/0.3ML INJ SUBCUT (20:55)
--- NOTE | 2022-12-29 22:37 | PC.NURSE ---
Shift Note [id number]: Pt alert and able to follow simple commands. VS WNL and LS coarse throughout. Intermittent, non productive cough. Uses walker with assist x1 with GB. Pt showered this evening with assist x1 and tele dc'd per Dr. Morrow. Up to chair for supper, good appetite. CIWAS= 3, no Ativan required. Pt did receive scheduled dose of phenobarbitol at 1930 and this has made her very sleepy. Currently appears to be sleeping, cont. pulse ox= 100%, pt wakes to light sternal rub and her name to take evening pill. No BM. Pt also continues to move impulsively and remains high risk for falls.
[2022-12-30] VITALS (9 sets, daily range): BP systolic 101–154; BP diastolic 64–95; PULSE 62–87; RESP 16–18; TEMP 36.2–36.7; O2SAT 98–100
[2022-12-30] MEDS: IPRAT-ALBUT 0.5-2.5 MG/3 ML NEB 1 NEB IH ×4 (02:23→20:42)
[2022-12-30] MEDS: PHENobarbitaL 32.4 MG TABLET 64.8 MG PO (03:40)
--- NOTE | 2022-12-30 05:19 | PC.NURSE ---
[id number]: Patient awake at 2345 until 0500. During this time patient using call light appropriately and rested comfortably in bed watching TV. Denies pain. CIWAs unremarkable. A1/walker/GB. Denies N/V and chest pain.
[2022-12-30 06:08] LABS: Basophils Absolute Auto 0.03 K/uL (0.00-0.30); Basophils Percent Auto 0.6 % (0.0-3.0); Eosinophils Absolute Auto 0.03 K/uL (0.00-0.50); Eosinophils Percent Auto 0.6 % (0.0-7.0); Hematocrit 30.6 % (33.0-51.0); Hemoglobin* 10.7 gm/dL (12.0-16.0); Immature Granulocytes Abs Auto 0.01 K/uL (0.00-0.30); Immature Granulocytes Pct Auto 0.2 %; Lymphocytes Absolute Auto 1.14 K/uL (0.90-2.90); Lymphocytes Percent Auto 21.1 % (20-44); Mean Corpuscular HGB Conc 35 gm/dL (32-36); Mean Corpuscular Hemoglobin 34 pg (26-34); Mean Corpuscular Volume 97 fL (80-100); Monocytes Percent Auto 11.6 % (0.0-11.0); Neutrophils Absolute Auto 3.57 K/uL (1.7-7.0); Neutrophils Percent Auto 65.9 % (42.0-72.0); Platelet Count* 288 K/uL (140-440); RDW Coefficient of Variation % 12.5 % (11.5-15.5); Red Blood Count 3.17 m/uL (4.00-5.20); White Blood Count* 5.41 K/uL (4.50-11.00)
[2022-12-30 06:12] LABS: Slide Review Reflex No
[2022-12-30 06:21] LABS: Albumin* 3.8 g/dL (3.3-5.0); Chloride* 97 mmol/L (96-114); Sodium* 127 mmol/L (135-149)
[2022-12-30 06:22] LABS: Potassium* 3.9 mmol/L (3.6-5.1)
[2022-12-30 06:24] LABS: Alanine Aminotransferase* 46 U/L (4-35); Alkaline Phosphatase* 52 U/L (40-150); Aspartate Amino Transferase* 47 U/L (12-35); Bilirubin Total* 0.4 mg/dL (0.1-1.5); Blood Urea Nitrogen* 6 mg/dL (5-24); Carbon Dioxide* 24 mmol/L (20-32); Creatinine* 0.2 mg/dL (0.5-1.5); Est. Creatinine Clearance* 229.03; Estimated Glomerular Filt Rate 146 ml/min; Total Protein* 6.4 g/dL (6.0-8.3)
[2022-12-30 06:25] LABS: Calcium* 8.7 mg/dL (8.4-10.6); Glucose* 111 mg/dL (60-115); Magnesium* 1.8 mg/dL (1.5-2.6)
[2022-12-30] MEDS: MAGNESIUM OXIDE 400 MG TABLET PO ×2 (08:35→20:41)
[2022-12-30] MEDS: SODIUM CHLORIDE 0.9 % (FLUSH) 10 ML SYRINGE 5 ML IVF ×2 (08:35→20:42)
[2022-12-30] MEDS: MAGNESIUM HYDROXIDE 30 ML ORAL.SUSP PO (08:35)
[2022-12-30] MEDS: THIAMINE 100 MG TABLET PO (08:35)
[2022-12-30] MEDS: FOLIC ACID 1 MG TABLET PO (08:35)
[2022-12-30] MEDS: POTASSIUM CHLORIDE 10 MEQ CAPSULE ER 20 MEQ PO ×2 (08:35→18:00)
[2022-12-30] MEDS: MULTIVITAMIN/MINERALS 1 TABLET 1 TAB PO (08:35)
[2022-12-30] MEDS: METOPROLOL SUCCINATE (XL) 25 MG TAB PO (08:35)
[2022-12-30] MEDS: BUDESONIDE 0.5 MG/2ML NEB NEB ×2 (08:36→20:41)
--- NOTE | 2022-12-30 10:58 | PM.IMPN1 ---
Progress Note: A&P Assessment and plan (1) Hyponatremia: Problem details: - 111 on admission (12/25), improved appropriately with IV fluids, alcohol cessation, po intake - likely 2/2 ETOH use, poor po intake as an outpatient Status: Acute (2) Alcohol dependence: Problem details: - with associated laboratory abnormalities, encephalopathy, withdrawal - treating withdrawal with scheduled po Phenobarbital, discontinued 12/30 - patient has been advised to abstain completely from alcohol, unclear if she is interested in cessation - family interested in pursuing guardianship; NeuroPsych referral placed Status: Acute (3) Cognitive impairment: Problem details: - MOCA 08/28 (was on Phenobarbital when this was obtained) - family pursuing guardianship, patient referred to [facility] for formal neuropsych testing upon discharge Status: Acute (4) Abnormal liver function tests: Problem details: - alcoholic hepatitis vs cirrhosis vs HAMEED vs other - improving, continue to follow - abdominal ultrasound completed 12/26 with formal radiology read below. Does not appear to have acute surgical needs, our General Surgeon is aware of patient IMPRESSION: 1. Hepatic steatosis. 2. Common bile duct upper limits of normal/borderline prominent, measuring 6mm. 3. Gallbladder appears unremarkable. Status: Acute (5) Closed head injury: Problem details: - CT scan of head negative for acute findings on 12/25/2022 Status: Acute (6) Seizure: Problem details: - Tonic clonic seizure lasting 45 seconds, possibly related to severe hyponatremia as well as alcohol withdrawal - no recurrent seizures since admission Status: Acute (7) Tobacco dependence: Problem details: - tolerating patch during stay Status: Acute (8) Encephalopathy acute: Problem details: - Multifactorial: Hyponatremia, alcohol withdrawal, postictal Status: Acute (9) Elevated troponin: Problem details: - NSTEMI vs demand ischemia from ETOH use, fall - peak at 0.71, patient asymptomatic, started low dose Metoprolol 12/27 for TTE findings. Understands need for close Cardiology f/u - TTE performed 12/26 Final Impressions: 1. Normal left ventricular size, normal wall thickness, normal global systolic function, calculated EF of 63 %. 2. Mildly enlarged left atrium. 3. Right ventricular cavity size is normal, global systolic RV function is normal. 4. The aortic valve is trileaflet and normal, no stenosis and moderate regurgitation. 5. Mid anterior septum segment and mid anterior segment are abnormal. Status: Acute (10) Normocytic anemia: Problem details: - dilutional vs baseline. Normal MCV - No evidence of acute bleeding, no abdominal pain - PPI (12/26), guaiac stools (pending) Status: Acute (11) Essential hypertension: Problem details: - added 25mg of Metoprolol XL to regimen - decreased home Lisinopril dose from 10-->5mg (added this back on 12/30) Status: Acute Plan - per above - Lovenox for ppx - home with parents when medically stable, possibly as early as tomorrow with outpatient f/u (PCP, Cardiology, Neuropsych) - father and brother updated at bedside, questions answered Subjective Date Seen: 12/30/22 Interval history: No acute events overnight. We are continuing to taper Charles's Phenobarbital; will discontinue it today given stability with withdrawal. Labs and vital signs are stable, tolerating therapies and medications. It is unclear if she will remain abstinent from alcohol upon discharge. Exam Narrative: Exam Narrative: GEN:? Patient is awake and sitting comfortably in bedside chair HEENT:? Bruising on left side of face is unchanged, left parietal scalp lesion remains hemostatic, EOMIs CV: RRR, systolic murmur heard best at left sternal border without concerning features R: LCTA bilaterally without concerning wheezing, air movement adequate Ext: wwp, no concerning edema, + clubbing bilateral hands Skin: Scattered bruising upper extremities, no active bleeding Psych:?+ flat affect, +psychomotor slowing Const: Vital Signs, click to edit/add: Vital Signs - 24 hr 12/29/22 11:20 12/29/22 11:35 12/29/22 16:53 Temperature 97.6 F 97.6 F Pulse Rate 72 Pulse Rate [Left A pical] Pulse Rate [Pulse Oximeter] 68 68 Respiratory Rate 16 16 Blood Pressure [Le ft Arm] 144/91 H 144/91 H Pulse Oximetry 99 99 Oxygen Delivery Me thod Room Air Room Air Oxygen Flow Rate 12/29/22 15:00 12/29/22 15:00 12/29/22 15:00 Temperature 97.3 F L Pulse Rate Pulse Rate [Left A pical] Pulse Rate [Pulse Oximeter] 74 74 Respiratory Rate 16 16 Blood Pressure [Le ft Arm] 164/94 H Pulse Oximetry 100 100 Oxygen Delivery Me thod Room Air Oxygen Flow Rate 12/29/22 15:09 12/29/22 19:00 12/29/22 23:30 Temperature 97.3 F L 97.5 F L 97.4 F L Pulse Rate Pulse Rate [Left A pical] 77 Pulse Rate [Pulse Oximeter] 74 77 76 Respiratory Rate 16 16 18 Blood Pressure [Le ft Arm] 164/94 H 119/74 123/82 Pulse Oximetry 100 100 91 Oxygen Delivery Me thod Room Air Room Air Nasal Cannula Oxygen Flow Rate 0 1.0 12/29/22 23:00 12/29/22 23:00 12/30/22 02:23 Temperature 97.4 F L 98.0 F Pulse Rate Pulse Rate [Left A pical] Pulse Rate [Pulse Oximeter] 76 72 Respiratory Rate 18 16 Blood Pressure [Le ft Arm] 123/82 154/95 H Pulse Oximetry 91 91 100 Oxygen Delivery Me thod Nasal Cannula Room Air Oxygen Flow Rate 1.0 12/30/22 03:00 12/30/22 07:25 12/30/22 07:25 Temperature 98.0 F Pulse Rate Pulse Rate [Left A pical] Pulse Rate [Pulse Oximeter] 72 Respiratory Rate 16 16 Blood Pressure [Le ft Arm] 154/95 H Pulse Oximetry 100 100 100 Oxygen Delivery Me thod Room Air Room Air Oxygen Flow Rate 12/30/22 07:25 12/30/22 07:25 12/30/22 07:25 Temperature 97.6 F 97.6 F Pulse Rate Pulse Rate [Left A pical] 87 87 87 Pulse Rate [Pulse Oximeter] Respiratory Rate 16 16 16 Blood Pressure [Le ft Arm] 132/91 H 132/91 H Pulse Oximetry 100 100 Oxygen Delivery Me thod Room Air Room Air Oxygen Flow Rate Labs Labs: Laboratory Results - last 24 hr 12/30/22 12/30/22 05:38 05:38 WBC 5.41 RBC 3.17 L Hgb 10.7 L Hct 30.6 L MCV 97 MCH 34 MCHC 35 RDW Coeff of Evangelina 12.5 Plt Count 288 Neut % (Auto) 65.9 Lymph % (Auto) 21.1 [place] % (Auto) 11.6 H Eos % (Auto) 0.6 Baso % (Auto) 0.6 Neut # (Auto) 3.57 Lymph # (Auto) 1.14 [place] # (Auto) 0.60 Eos # (Auto) 0.03 Baso # (Auto) 0.03 Sodium 127 L Potassium 3.9 Chloride 97 Carbon Dioxide 24 BUN 6 Creatinine 0.2 L Estimated Creat Clear 229.03 Estimated GFR 146 Glucose 111 Calcium 8.7 Magnesium 1.8 Total Bilirubin 0.4 AST 47 H ALT 46 H Alkaline Phosphatase 52 Total Protein 6.4 Albumin 3.8
--- NOTE | 2022-12-30 18:14 | PC.NURSE ---
End of shift. Pt alert x4 she was off on day. the said it was Wednesday but she did say it was dec 30. she is using her call light and follow all directions. She has a intermittent, non productive cough. Pt is up with assist x1 walker and GB. PT and OT worked with her. Ciwa - she did not need , any Ativan. phenobarbital was d/c, cont Sao2 97-100%. No BM since 12-24 she got MOM and 3 loose stools. . Pt has not been impulsively, and is using her call light. she is a fall risk and chair and bed alarms are on. she is eating, drinking and voiding with no problems.
[2022-12-30] MEDS: NICOTINE 21 MG PATCH 1 PATCH TRANSDERMA (20:41)
[2022-12-30] MEDS: ENOXAPARIN 30 MG/0.3ML INJ SUBCUT (20:41)
[2022-12-31] MEDS: IPRAT-ALBUT 0.5-2.5 MG/3 ML NEB 1 NEB IH ×2 (02:47→08:33)
[2022-12-31 02:54] VITALS: BP 127/80; PULSE 72; RESP 16; TEMP 36.2; O2SAT 100
--- NOTE | 2022-12-31 05:05 | PC.NURSE ---
[id number] Pt pleasant and cooperative, ambulating to br with walker, SBA, tolerating activity well. denies N/V, chest pain, sob, pain. acknowledges small headache but able to sleept majority of night.
[2022-12-31 07:40] VITALS: BP 123/87; PULSE 75; RESP 18; TEMP 36.2; O2SAT 100
[2022-12-31] MEDS: POTASSIUM CHLORIDE 10 MEQ CAPSULE ER 20 MEQ PO (08:32)
[2022-12-31] MEDS: THIAMINE 100 MG TABLET PO (08:33)
[2022-12-31] MEDS: SODIUM CHLORIDE 0.9 % (FLUSH) 10 ML SYRINGE 5 ML IVF (08:33)
[2022-12-31] MEDS: MAGNESIUM OXIDE 400 MG TABLET PO (08:33)
[2022-12-31] MEDS: MULTIVITAMIN/MINERALS 1 TABLET 1 TAB PO (08:33)
[2022-12-31] MEDS: METOPROLOL SUCCINATE (XL) 25 MG TAB PO (08:33)
[2022-12-31] MEDS: FOLIC ACID 1 MG TABLET PO (08:33)
[2022-12-31] MEDS: BUDESONIDE 0.5 MG/2ML NEB NEB (08:33)
--- NOTE | 2022-12-31 11:30 | PC.NURSE ---
End of shift. ? Pt alert x4. she is using her call light and follow all directions.? ? pt has a intermittent, non productive cough. ? Pt is up with clayton mandel and ERIC. PT and OT worked with her. ? Ciwa 0-1? no Ativan.. ? No BM this shift. ? ? . Pt has not been impulsively, and is using her call light. ? she is a fall risk and chair and bed alarms are on.? ? she is eating, drinking and voiding with no problems. ?went over discharge packet with pt. went over meds x3 appt x2 instructions and education/ pt went over and signed personal belongings. she packed up all belongs and belongs returned. all paperwork sent with her. SL was d/c intact. she got a w/c ride out
--- NOTE | 2022-12-31 14:28 | P.DS_ITS ---
DS: Providers Provider Date Seen: 12/31/22 Date of admission: 12/25/22 20:36 Primary care physician: Joaquin Hood MD Admitting Clinician: Len Tyler MD Consults: 12/25/22 20:21 Consult to Nutrition [CONS] Routine Comment: Reason for consult:: Miscellaneous Comment: Alcoholism Consult to Physical Therapy [CONS] Routine Comment: Reason(s) for PT Consult:: Evaluate and Treat Any Restrictions?:: See Comment Comment: Encephalopathy, falls Consult to Corduroy Cutter Operator [CONS] Routine Comment: Reason for Consult:: Discharge Planning Needs 12/25/22 20:25 Consult to Occupational Therapy [CONS] Routine Comment: Reason(s) for OT Consult:: Evaluate and Treat Any Restrictions?:: See Comment Comment: Encephalopathy, falls Attending Physician on discharge: Tereza Becerril MD [facility] Date of Discharge: 12/31/22 DS: Diagnosis Discharge Diagnosis (1) Alcohol dependence: Status: Acute Problem details: - with associated laboratory abnormalities, encephalopathy, withdrawal, seizurre in the ED - treating withdrawal with scheduled po Phenobarbital, discontinued 12/30 - patient has been advised to abstain completely from alcohol, unclear if she is interested in cessation - family interested in pursuing guardianship; NeuroPsych referral placed (2) Seizure: Status: Acute Problem details: - Tonic clonic seizure lasting 45 seconds, possibly related to severe hyponatremia as well as alcohol withdrawal - no recurrent seizures since admission (3) Elevated troponin: Status: Acute Problem details: - NSTEMI vs demand ischemia from ETOH use, fall, low sodium - peak at 0.71, patient asymptomatic, started low dose Metoprolol 12/27 for TTE findings. Understands need for close Cardiology f/u - TTE performed 12/26 Final Impressions: 1. Normal left ventricular size, normal wall thickness, normal global systolic function, calculated EF of 63 %. 2. Mildly enlarged left atrium. 3. Right ventricular cavity size is normal, global systolic RV function is normal. 4. The aortic valve is trileaflet and normal, no stenosis and moderate regurg itation. 5. Mid anterior septum segment and mid anterior segment are abnormal. (4) Hyponatremia: Status: Acute Problem details: - 111 on admission (12/25), 127 at discharge (12/31), improved appropriately with IV fluids, alcohol cessation, po intake - likely 2/2 ETOH use, poor po intake as an outpatient (5) Closed head injury: Status: Acute Problem details: - CT scan of head negative for acute findings on 12/25/2022 (6) Tobacco dependence: Status: Acute Problem details: - tolerating patch during stay (7) Cognitive impairment: Status: Acute Problem details: - MOCA 9/30 (was on Phenobarbital when this was obtained) - family pursuing guardianship, patient referred to [facility] for formal neuropsych testing upon discharge (8) Essential hypertension: Status: Acute Problem details: - added 25mg of Metoprolol XL to regimen - stopped home Lisinopril 2/2 hypotension (9) Abnormal echocardiogram: Status: Acute DS: Summary Hospital Course Hospital Course: HOSPITALIST DISCHARGE SUMMARY ATTENDING PHYSICIAN: Tereza Becerril MD FINAL DIAGNOSIS: Alcoholism, alcohol withdrawal with seizure Closed head injury Alcoholic heart disease HOSPITAL FOLLOWUP ISSUES: 1. Abnormal echocardiogram, previous elevated troponin during acute illness. Given the wall motion abnormality seen on our echocardiogram, it likely has some amount of alcoholic heart disease. She was started on a beta-job and this was continued at discharge. At referral was arranged with [facility]. 2. Competency/guardianship. Patient is being referred for full neuropsych testing through [facility]. We faxed the clinical information, cover sheet, consult request to [facility]. The patient's family was also given this number. REFERRALS WHILE ADMITTED: PT, OT, social work REFERRALS AFTER DISCHARGE: Cardiology Neurology BRIEF HOSPITAL COURSE: Patient presented to our emergency room with slurred speech and recent head trauma. It is unclear how she became injured. The family wonders if she fell and or had a seizure at home. She has longstanding alcohol dependence and abuse. However no previous history of significant falls or seizures during withdrawal or otherwise. In the emergency room she was noted to have a sodium of 111 and shortly after arrival in the emergency room had what was presumed to be an alcohol withdrawal seizure. This was treated with Ativan. Her head CT was negative for any acute changes. She was admitted from the 25 of December through the December. We managed her alcohol withdrawal with IV and p.o. phenobarbital. She received OT and PT. her [place], likely markedly worse than her baseline, was done 2 days prior to discharge and was only 9/30. Cognitively she seemed much more present and insightful on the day of discharge. She was able to shower herself. She was walking independently in the halls. She does state that she is not interested in any inpatient or outpatient alcohol abstinence program. We did note that she had a slight bump in her troponin after her seizure in the 1st part of her hospitalization. Her echo does show some wall motion abnormalities. We presume she has alcoholic liver disease. We started her on metoprolol. Her family was very concerned about the events and the seizures. Asked for guardianship over Vidya, whom she lives with. We explained the process and the need for further documentation and neuropsych testing, etc. SUBSTANTIVE NOTATIONS ON IMAGING, LAB, MICROBIOLOGY/PATHOLOGY STUDIES: Afebrile. Blood pressure is 123/87. Pulse 75. Respiratory rate 18. Pulse ox 100% on room air. White blood cell count at discharge 5.41. Hemoglobin 10.7. Platelets 288. Chronic hyponatremia, discharge sodium 127. Stable electrolytes otherwise and unremarkable renal function. Magnesium, total bilirubin normal at discharge. 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 Troponin initially was negative in peaked at 0.71, last time it was checked on 12/26 was 0.[address] on admission: No acute intracranial process Chest x-ray Unremarkable Abdominal ultrasound Hepatic steatosis Mildly dilated common bile duct Unremarkable gallbladder Echocardiogram 12/26/2022 Normal left ventricular size, normal wall thickness, normal global systolic function. EF 63%. Mildly enlarged left atrium Right ventricular cavity size is normal. Global systolic RV function is normal The aortic valve is trileaflet and normal. No stenosis. Moderate regurg. Mid anterior septum segment and mid anterior segment are abnormal. DISCHARGE MEDICATIONS: See Reconciled list - SIGNIFICANT CHANGES: REVIEW OF SYSTEMS No new chest pain or dyspnea Pain controlled No voiding difficulties Tolerating diet challenge PHYSICAL EXAM: CONSTITUTIONAL: Petite outgoing. Agreeable. Child like. Healing ecchymoses on her face. VITAL SIGNS: see record. HEENT: Normocephalic, atraumatic. PERRL, EOMI, conjunctivae pink, no scleral icterus. Ears and nose externally normal. Pharynx normal. NECK: No JVD. No carotid bruit, no thyromegaly, no adenopathy. CHEST: Clear to auscultation bilaterally. HEART: S1 and S2 normal. Edema ABDOMEN: Soft, nontender. Normal bowel sounds. MUSCULOSKELETAL: No gross joint deformity or swelling. NEURO: Cranial nerves intact. Grossly intact. No asymmetric findings. SKIN: No rashes, petechiae, concerning changes PSYCHIATRIC: Mood euthymic. DISPOSITION: Home with father Time spent on discharge 37 minutes. Status at Discharge Functional status at discharge: independent ambulation Overall status at discharge: patient is progressing back to baseline Time Spent with Patient Time attestation: Total time spent providing and/or coordinating discharge services: Time spent: Greater than 30 minutes Exam Const: Vital Signs, click to edit/add: Vital Signs - 24 hr 12/30/22 15:20 12/30/22 15:00 12/30/22 15:10 Temperature 97.5 F L 97.5 F L Pulse Rate [Left A pical] 79 79 Pulse Rate [Pulse Oximeter] Respiratory Rate 16 18 16 Blood Pressure [Le ft Arm] 120/78 120/78 Pulse Oximetry 100 100 100 Oxygen Delivery Me thod Room Air Room Air Room Air Oxygen Flow Rate 12/30/22 15:10 12/30/22 19:00 12/30/22 22:30 Temperature 97.5 F L 97.2 F L Pulse Rate [Left A pical] 79 Pulse Rate [Pulse Oximeter] 67 62 Respiratory Rate 16 16 16 Blood Pressure [Le ft Arm] 137/81 118/78 Pulse Oximetry 98 98 Oxygen Delivery Nv thod Room Air Room Air Oxygen Flow Rate 0 0 12/30/22 22:30 12/31/22 02:54 12/31/22 07:40 Temperature 97.2 F L Pulse Rate [Left A pical] Pulse Rate [Pulse Oximeter] 72 Respiratory Rate 16 16 18 Blood Pressure [Le ft Arm] 127/80 Pulse Oximetry 98 100 100 Oxygen Delivery Nv thod Room Air Room Air Room Air Oxygen Flow Rate 0 0 12/31/22 07:40 12/31/22 07:40 12/31/22 07:40 Temperature 97.1 F L 97.1 F L Pulse Rate [Left A pical] 75 75 75 Pulse Rate [Pulse Oximeter] 75 75 75 Respiratory Rate 18 18 18 Blood Pressure [Le ft Arm] 123/87 123/87 Pulse Oximetry 100 100 Oxygen Delivery Nv thod Room Air Room Air Oxygen Flow Rate Discharge Plan Discharge Disposition: Home w/ Parent or Adult Date of Admission: 12/25/22 20:36 Attending Provider on Discharge: Tereza Becerril Primary Care Provider: Joaquin Hood Condition: Unchanged Anticipated Discharge Date/Time: 12/31/22 10:57 Discharge Medications: New folic acid 1 mg Tablet 1 mg PO DAILY Qty: 30 0RF multivitamin with folic acid [Thera] 400 mcg Tablet 1 tab PO DAILY Qty: 30 0RF metoprolol succinate 25 mg tablet extended release 24 hr 25 mg PO DAILY Qty: 30 0RF Continued albuterol sulfate [Ventolin HFA] 90 mcg/actuation HFA aerosol inhaler 2 inh INHALATION Q4H PRN Discontinued lisinopril 10 mg tablet 10 mg PO DAILY Label Comments: TAKE ONE TABLET BY MOUTH ONE TIME DAILY Discharge Orders: Discharge Order (Routine); Ordered 12/31/22 Ordered By: Tereza Becerril Patient Education: Metoprolol (By mouth), Folic Acid (By mouth), Multivitamins, Adult Formula (By mouth), Hyponatremia (DC), Alcohol Withdrawal (DC) Additional Instructions: You are going home on a new medication called METOPROLOL. This helps with heart function; stay on this until you see the Chronic Disease Manager to discuss your abnormal heart ultrasound (echocardiogram). I recommend that you have a formal Neuropysch evaluation through the [facility]. A referral was sent to them on 12/30, and their phone number is [phone]. Activity Level: Activity as Tolerated Discharge Diet: Regular Follow Up Appointments: Yariel Godfrey [Staff Physician] - 01/05/23 10:00 am (Dr. Beard at [facility] in [facility] on 2nd floor. ) Luzmaria Coronado MD [Staff Physician] - 01/13/23 10:50 am ( DR. CORONADO IS OUT OF THE OFFICE. FOLLOW UP APPOINTMENT IS SCHEDULE WITH DR. CORNEJO. You will be receiving a call to have Neuropysch evaluation through the [facility] to schedule an appointment.) Forms: [employer] Info Instructions
== END 2022-12-31 11:30 | disposition home or self-care (01) | DRG 775 ==
LOC: ED 19:24 → MEDSURG 20:35
PROVIDERS: Family Medicine; Admitting Provider Internal Medicine; Emergency Provider Emergency Medicine Emergency Medical Services; PCP Family Medicine; Visit Provider Internal Medicine
DX: F10.231 Alcohol dependence with withdrawal delirium (principal); F10.239 Alcohol dependence with withdrawal, unspecified; I42.6 Alcoholic cardiomyopathy; F10.20 Alcohol dependence, uncomplicated; R56.9 Unspecified convulsions; E87.1 Hypo-osmolality and hyponatremia; I24.8 Other forms of acute ischemic heart disease; K70.0 Alcoholic fatty liver; Y90.1 Blood alcohol level of 20-39 mg/100 ml; S09.90XA Unspecified injury of head, initial encounter; S00.83XA Contusion of other part of head, initial encounter; W19.XXXA Unspecified fall, initial encounter; Y92.009 Unspecified place in unspecified non-institutional (private) residence as the place of occurrence of the external cause; I10 Essential (primary) hypertension; F17.210 Nicotine dependence, cigarettes, uncomplicated; G31.84 Mild cognitive impairment of uncertain or unknown etiology; R93.1 Abnormal findings on diagnostic imaging of heart and coronary circulation; G93.40 Encephalopathy, unspecified; D64.9 Anemia, unspecified
CPT/HCPCS: 36415; 70450; 71045; 76705; 80048; 80053; 80076; 80306; 81001; 82077; 82140; 82330; 82803; 82977; 83605; 83690; 83735; 83880; 84100; 84295; 84443; 84484; 85025; 85610; 85730; 86140; 87040; 87086; 87426; 87493; 87635; 93005; 93306; 94640; 94761; 97110; 97112; 97116; 97161; 97165; 97535; 99285; 99291; A9153; A9270; C9113; J0610; J1650; J2060; J2560; J3411; J7030; J7120; J7626; S4990

== ENCOUNTER 2023-01-19 09:15 | Emergency (ER) | payer BC, SELFPAY ==
[2023-01-19 09:27] VITALS: BP 124/76; PULSE 79; RESP 18; TEMP 36.7; O2SAT 100; BMI 154.9
--- NOTE | 2023-01-19 10:54 | ED.NURSE ---
Went in to start IV, obtain blood and start fluids. Patient stated she did not need all that. Attempted to reassure patient that cares would help to figure out what might be going on. Patient still adamant that she has been here already for two hours and needs to go. MD updated and in to speak with patient.
[2023-01-19 11:00] VITALS: BP 108/72; PULSE 65; RESP 12; O2SAT 98
[2023-01-19 11:19] LABS: Lactate* 2.2 mmol/L (0.5-1.9)
[2023-01-19 11:26] LABS: Basophils Percent Auto 0.2 % (0.0-3.0); Eosinophils Percent Auto 0.5 % (0.0-7.0); Hematocrit 36.6 % (33.0-51.0); Immature Granulocytes Pct Auto 0.2 %; Mean Corpuscular HGB Conc 36 gm/dL (32-36); Mean Corpuscular Hemoglobin 34 pg (26-34); Mean Corpuscular Volume 94 fL (80-100); Monocytes Percent Auto 8.8 % (0.0-11.0); Neutrophils Percent Auto 44.3 % (42.0-72.0); Platelet Count* 247 K/uL (140-440); RDW Coefficient of Variation % 12.2 % (11.5-15.5); Red Blood Count 3.88 m/uL (4.00-5.20); White Blood Count* 4.22 K/uL (4.50-11.00)
[2023-01-19 11:30] LABS: Slide Review Reflex No
[2023-01-19 11:41] LABS: Albumin* 4.1 g/dL (3.3-5.0); Chloride* 103 mmol/L (96-114); Sodium* 132 mmol/L (135-149)
[2023-01-19 11:42] LABS: Potassium* 3.6 mmol/L (3.6-5.1)
[2023-01-19 11:43] LABS: Creatinine* 0.2 mg/dL (0.5-1.5); Est. Creatinine Clearance* 206.38; Estimated Glomerular Filt Rate 146 ml/min; Ethanol* 0.21 % (0.01-0.03)
[2023-01-19 11:44] LABS: Alkaline Phosphatase* 119 U/L (40-150); Bilirubin Direct* 0.2 mg/dL (0.0-0.5); Bilirubin Total* 0.8 mg/dL (0.1-1.5); Blood Urea Nitrogen* 9 mg/dL (5-24); Carbon Dioxide* 19 mmol/L (20-32); Total Protein* 6.9 g/dL (6.0-8.3)
[2023-01-19 11:45] LABS: Alanine Aminotransferase* 268 U/L (4-35); Calcium* 8.1 mg/dL (8.4-10.6); Glucose* 105 mg/dL (60-115); Lipase* 179 U/L (23-300)
[2023-01-19 11:54] LABS: Aspartate Amino Transferase* 871 U/L (12-35); C Reactive Protein* < 0.5 mg/dL (0.5-1.0); NT Pro B Type NatriureticPept* 224 pg/mL
[2023-01-19 12:05] LABS: Erythrocyte SedimentationRate* 2 mm/hr (2-20)
[2023-01-19 12:21] LABS: TSH With Reflex to FT4* 0.894 uIU/mL (0.270-4.200)
--- NOTE | 2023-01-19 12:58 | ED.NURSE ---
Patient pushed call light. She wants monitor off and to leave. I tried to explain that her lab values were off and that more test were being done. She is again adament that she needs to leave. I counseled her that due to her ETOH level of 2.1 she would not be able to drive herself home. She stated she will call taxi.
[2023-01-19 15:52] LABS: Lactate Dehydrogenase* 265 U/L (120-246)
[2023-01-19 15:53] LABS: Acetaminophen* < 10.0 ug/mL (10.0-30.0)
--- NOTE | 2023-01-19 16:15 | ED_ITS ---
HPI - General Adult General Date Seen: 01/19/23 Chief complaint: Weakness Stated complaint: Confused/tired/diarrhea/chest congestion Time Seen by Provider: 01/19/23 09:45 Source: patient Mode of arrival: ambulatory Limitations: no limitations History of Present Illness HPI narrative: Patient is a 47-year-old woman with a history of alcohol abuse who was recently hospitalized with severe hyponatremia, alcohol withdrawal, seizures, discharged home and currently staying with her parents. She comes in saying she has been fatigue, she has had some diarrhea, she has had a little bit of a cough, she says she had a little bit of chest tightness yesterday. Mostly she says she just feels tired and does not have a lot of energy. She does not complain to me of abdominal pain or nausea or vomiting. She recalls that her sodium was low and wonders if it might be low again. She tells me that she is only drinking a case of beer every 3 days, where she says she used to drink a case of beer every day. She is trying to smoke less. She has not had fevers. She denies difficulty breathing. Related Data Home Medications Medication Instructions Recorded Confirmed albuterol sulfate 90 mcg/actuation 2 inh inhalation Q4H PRN 12/25/22 12/26/22 aerosol inhaler (Ventolin HFA) Previous Rx's Medication Instructions Recorded folic acid 1 mg tablet 1 mg PO DAILY #30 tabs 12/30/22 multivitamin with folic acid 400 1 tab PO DAILY #30 tabs 12/30/22 mcg tablet (Thera) metoprolol succinate 25 mg 25 mg PO DAILY #30 tabs 12/31/22 tablet,extended release 24 hr Allergies Allergy/AdvReac Type Severity Reaction Status Date / Time oxycodone Allergy Intermediate Rash Verified 01/19/23 09:26 Review of Systems Status of ROS: Reports: 10 or more systems reviewed and unremarkable except as noted in History and below [facility] Medical History Chronic alcoholism Chronic cough Chronic hyponatremia Essential hypertension History of fracture of right ankle Tobacco dependence Surgical History History of wisdom tooth extraction Family History Daughter Depression Maternal Grandmother Heart disease Father High blood pressure Social History Highest level of school completed/degree received: high school graduate Smoking Status: Current every day smoker What tobacco products do you use: cigarettes Years smoked: 30 Do you use any of these nicotine containing products: None How often do you have a drink containing alcohol: 4 or more times a week Alcohol type: beer How many standard drinks containing alcohol do you have on a typical day: 1 or 2 How often do you have six or more drinks on one occasion: Daily or almost daily AUDIT-C Alcohol total score: 8 Non-prescribed substance use: denies use Caffeine: Yes (3 cans Mt Dew) service: No Exam Narrative: Exam Narrative: Vital signs as noted above. In general, an alert, thin, middle-aged woman. Appears older than her stated age. Head: Normocephalic, atraumatic. Eyes: Pupils are equal reactive. Extraocular movements are full. Conjunctivae are normal. No jaundice. ENT: Mucous membranes are moist. Throat is normal. Neck: Supple without lymphadenopathy. Heart: Regular rate and rhythm. No murmur or rub. Lungs: Clear bilaterally. No increased work of breathing, crackles or wheezes. Abdomen: Soft and nontender. No organomegaly. Extremities: Well perfused. No edema. No calf tenderness. Pulses intact. Neurologic: Patient is alert and oriented to person and place. Speech is fluent. Face is symmetric. Moves all extremities equally. Affect: Normal. Skin: Warm and dry. Well perfused. Const: Vital Signs, click to edit/add: Vital Signs - 24 hr 01/19/23 09:27 01/19/23 11:00 Temperature 98.1 F Pulse Rate [Pulse Oximeter] 79 65 Respiratory Rate 18 12 Blood Pressure [Ri ght Upper Arm] 124/76 108/72 Pulse Oximetry 100 98 Oxygen Delivery Me thod Room Air Documenting provider has reviewed patient's vital signs: yes Course Course Hospital Course: Initially, the patient had said that she wanted evaluated to check her sodium. I would put in orders for labs, then the nurse came back and said the patient had changed her mind and did not want evaluation and just wanted to leave. I went back in and talked to her again, and after extensive conversation she agreed to have labs drawn but did not agree to have an IV placed or any fluids given. Labs returned showing a mildly suppressed white blood cell count of 4.2 and hemoglobin of 13. Platelets are 247,000. Sodium is okay today at 1:32 a.m. up from 128 at discharge. CO2 is 19, blood sugar is 105. Her lactate was mildly elevated at 2.2, and her blood alcohol level was 0.21, so I do suspect that the lactate is probably related to her alcohol use. Her bilirubin was normal but her AST is markedly elevated at 871, ALT is 268. She did have mildly elevated transaminases when she was in the hospital but more on the order of around 40. Her lipase was normal. TSH was normal. Around the time her labs came back, patient decided that she wanted to leave [place]. I had not yet had a chance to go and review her labs with her, I had added on a Tylenol, hepatitis panel and LDH. Her LDH was mildly elevated at 265 in her Tylenol came back essentially negative. Certainly with her history alcoholic hepatitis comes to mind, but with her transaminases being as markedly elevated as they are I think other types of hepatitis needed to be considered. She has a benign abdominal exam, does not complain of pain, fever, vomiting. Certainly her hepatitis may be contributing to her fatigue. I did not have a chance to discuss any of this with her because she left [place]. I had been concerned she might decline any further evaluation given had difficult it was to convince her even to get blood work done. The nurses did relay to her that her lab work was abnormal and that follow up was recommended. Vital Signs Vital signs: Initial Vital Signs Temperature 98.1 F 01/19/23 09:27 Temperature Source Temporal Artery Scan 01/19/23 09:27 Pulse Rate 79 01/19/23 09:27 Pulse Rhythm 01/19/23 09:27 Respiratory Rate 18 01/19/23 09:27 Blood Pressure 124/76 01/19/23 09:27 Blood Pressure Mean 92 01/19/23 09:27 Blood Pressure Position Supine 01/19/23 09:27 Pulse Oximetry 100 01/19/23 09:27 Oxygen Delivery Method 01/19/23 09:27 Vital Signs Temperature 98.1 F 01/19/23 09:27 Pulse Rate 79 01/19/23 09:27 Respiratory Rate 18 01/19/23 09:27 Blood Pressure 124/76 01/19/23 09:27 Pulse Oximetry 100 01/19/23 09:27 Oxygen Delivery Method 01/19/23 09:27 Temperature 98.1 F 01/19/23 09:27 Pulse Rate 65 01/19/23 11:00 Respiratory Rate 12 01/19/23 11:00 Blood Pressure 108/72 01/19/23 11:00 Pulse Oximetry 98 01/19/23 11:00 Oxygen Delivery Method 01/19/23 09:27 Medical Decision Making Lab Data Labs: Lab Results 01/19/23 01/19/23 01/19/23 Range/Units 11:12 11:12 11:12 WBC 4.22 L (4.50-11.00) K/uL RBC 3.88 L (4.00-5.20) m/uL Hgb 13.0 (12.0-16.0) gm/dL Hct 36.6 (33.0-51.0) % MCV 94 (80-100) fL MCH 34 (26-34) pg MCHC 36 (32-36) gm/dL RDW Coeff of Evangelina 12.2 (11.5-15.5) % Plt Count 247 (140-440) K/uL Neut % (Auto) 44.3 (42.0-72.0) % Lymph % (Auto) 46.0 H (20-44) % [place] % (Auto) 8.8 (0.0-11.0) % Eos % (Auto) 0.5 (0.0-7.0) % Baso % (Auto) 0.2 (0.0-3.0) % Neut # (Auto) 1.90 (1.7-7.0) K/uL Lymph # (Auto) 1.90 (0.90-2.90) K/uL [place] # (Auto) 0.40 (0.00-0.90) K/UL Eos # (Auto) 0.00 (0.00-0.50) K/uL Baso # (Auto) 0.00 (0.00-0.30) K/uL ESR 2 (2-20) mm/hr Sodium 132 L (135-149) mmol/L Potassium 3.6 (3.6-5.1) mmol/L Chloride 103 (96-114) mmol/L Carbon Dioxide 19 L (20-32) mmol/L BUN 9 (5-24) mg/dL Creatinine 0.2 L (0.5-1.5) mg/dL Estimated Creat Clear 206.38 Estimated GFR 146 ml/min Glucose 105 (60-115) mg/dL Lactate (0.5-1.9) mmol/L Calcium 8.1 L (8.4-10.6) mg/dL Total Bilirubin 0.8 (0.1-1.5) mg/dL Direct Bilirubin 0.2 (0.0-0.5) mg/dL AST 871 H (12-35) U/L ALT 268 H (4-35) U/L Alkaline Phosphatase 119 (40-150) U/L Lactate Dehydrogenase (120-246) U/L C-Reactive Protein < 0.5 L (0.5-1.0) mg/dL NT-Pro-B Natriuret Pep 224 pg/mL Total Protein 6.9 (6.0-8.3) g/dL Albumin 4.1 (3.3-5.0) g/dL Lipase 179 (23-300) U/L TSH (0.270-4.200) uIU/mL Acetaminophen (10.0-30.0) ug/mL Ethyl Alcohol (0.01-0.03) % POC Troponin I (0.01-0.04) ng/ml 01/19/23 01/19/23 01/19/23 Range/Units 11:12 11:12 11:12 WBC (4.50-11.00) K/uL RBC (4.00-5.20) m/uL Hgb (12.0-16.0) gm/dL Hct (33.0-51.0) % MCV (80-100) fL MCH (26-34) pg MCHC (32-36) gm/dL RDW Coeff of Evangelina (11.5-15.5) % Plt Count (140-440) K/uL Neut % (Auto) (42.0-72.0) % Lymph % (Auto) (20-44) % Canyon % (Auto) (0.0-11.0) % Eos % (Auto) (0.0-7.0) % Baso % (Auto) (0.0-3.0) % Neut # (Auto) (1.7-7.0) K/uL Lymph # (Auto) (0.90-2.90) K/uL [place] # (Auto) (0.00-0.90) K/UL Eos # (Auto) (0.00-0.50) K/uL Baso # (Auto) (0.00-0.30) K/uL ESR (2-20) mm/hr Sodium (135-149) mmol/L Potassium (3.6-5.1) mmol/L Chloride (96-114) mmol/L Carbon Dioxide (20-32) mmol/L BUN (5-24) mg/dL Creatinine (0.5-1.5) mg/dL Estimated Creat Clear Estimated GFR ml/min Glucose (60-115) mg/dL Lactate 2.2 H (0.5-1.9) mmol/L Calcium (8.4-10.6) mg/dL Total Bilirubin (0.1-1.5) mg/dL Direct Bilirubin (0.0-0.5) mg/dL AST (12-35) U/L ALT (4-35) U/L Alkaline Phosphatase (40-150) U/L Lactate Dehydrogenase (120-246) U/L C-Reactive Protein (0.5-1.0) mg/dL NT-Pro-B Natriuret Pep pg/mL Total Protein (6.0-8.3) g/dL Albumin (3.3-5.0) g/dL Lipase (23-300) U/L TSH 0.894 (0.270-4.200) uIU/mL Acetaminophen (10.0-30.0) ug/mL Ethyl Alcohol (0.01-0.03) % POC Troponin I 0.00 L (0.01-0.04) ng/ml 01/19/23 01/19/23 Range/Units 11:12 11:12 WBC (4.50-11.00) K/uL RBC (4.00-5.20) m/uL Hgb (12.0-16.0) gm/dL Hct (33.0-51.0) % MCV (80-100) fL MCH (26-34) pg MCHC (32-36) gm/dL RDW Coeff of Evangelina (11.5-15.5) % Plt Count (140-440) K/uL Neut % (Auto) (42.0-72.0) % Lymph % (Auto) (20-44) % [place] % (Auto) (0.0-11.0) % Eos % (Auto) (0.0-7.0) % Baso % (Auto) (0.0-3.0) % Neut # (Auto) (1.7-7.0) K/uL Lymph # (Auto) (0.90-2.90) K/uL [place] # (Auto) (0.00-0.90) K/UL Eos # (Auto) (0.00-0.50) K/uL Baso # (Auto) (0.00-0.30) K/uL ESR (2-20) mm/hr Sodium (135-149) mmol/L Potassium (3.6-5.1) mmol/L Chloride (96-114) mmol/L Carbon Dioxide (20-32) mmol/L BUN (5-24) mg/dL Creatinine (0.5-1.5) mg/dL Estimated Creat Clear Estimated GFR ml/min Glucose (60-115) mg/dL Lactate (0.5-1.9) mmol/L Calcium (8.4-10.6) mg/dL Total Bilirubin (0.1-1.5) mg/dL Direct Bilirubin (0.0-0.5) mg/dL AST (12-35) U/L ALT (4-35) U/L Alkaline Phosphatase (40-150) U/L Lactate Dehydrogenase 265 H (120-246) U/L C-Reactive Protein (0.5-1.0) mg/dL NT-Pro-B Natriuret Pep pg/mL Total Protein (6.0-8.3) g/dL Albumin (3.3-5.0) g/dL Lipase (23-300) U/L TSH (0.270-4.200) uIU/mL Acetaminophen < 10.0 L (10.0-30.0) ug/mL Ethyl Alcohol 0.21 H (0.01-0.03) % POC Troponin I (0.01-0.04) ng/ml Discharge Plan Discharge Prescriptions: No Action albuterol sulfate [Ventolin HFA] 90 mcg/actuation HFA aerosol inhaler 2 inh INHALATION Q4H PRN folic acid 1 mg Tablet 1 mg PO DAILY Qty: 30 0RF multivitamin with folic acid [Thera] 400 mcg Tablet 1 tab PO DAILY Qty: 30 0RF metoprolol succinate 25 mg tablet extended release 24 hr 25 mg PO DAILY Qty: 30 0RF Follow Up/Referrals: Luzmaria Ledbetter MD [Primary Care Provider] -
== END 2023-01-19 13:44 | disposition home or self-care (01) ==
LOC: ED 10:38
PROVIDERS: Emergency Provider Emergency Medicine; PCP Family Medicine
DX: R53.83 Other fatigue (principal); Z53.29 Procedure and treatment not carried out because of patient's decision for other reasons
CPT/HCPCS: 36415; 80048; 80074; 80076; 80143; 82077; 83605; 83615; 83690; 83880; 84443; 84484; 85025; 85651; 86140; 87635; 99283; 99284

== ENCOUNTER 2025-01-22 07:19 | Emergency (ER) | payer BC, SELFPAY ==
--- OUTSIDE RECORDS SUMMARY | 2025-01-22 07:22 | XMS_ITS | Clinical Summary ---
Author Organization [facility] Address [address] [place] [id number] Care Team Providers Care Securities Broker Name Role Phone Lisette Reynolds Primary Care Provider [phone] Allergies Active Allergy Reactions Criticality Noted Date Comments Cats (Fur, Dander, Saliva) *Unknown 7 Doxycycline Dizziness 06/18/2016 Dizziness, nausea Oxycodone Rash High 01/19/2023 Medications [id number] c [id number] (Alive Women's Gummy Vitamin) 200 mcg- 37.5 mg chew Chew by mouth. 200 Tablet 2 Active loratadine (CLARITIN) 10 mg tablet Take 1 Tablet (10 mg) by mouth once daily. 0 2 Active albuterol HFA (PRO-AIR; VENTOLIN; PROVENTIL) 90 mcg/actuation inhalerIndication s:Reactive airway disease, mild persistent, with acute exacerbation Inhale 2 Puffs by mouth every 4 hours if needed for Shortness of Breath 1st choice. 1 Each 3 Active nicotine 21 mg/24 hr (NICODERM; HABITROL) 21 mg/24 hr patchIndications: Nicotine dependence with nicotine-induced disorder, unspecified nicotine product type Apply 1 Patch on dry, clean, hairless skin once daily. 30 Patch 3 4 Active amLODIPine (NORVASC) 5 mg tabletIndications :Aortic valve insufficiency, etiology of cardiac valve disease unspecified,Chest pain, unspecified type,Abnormal echocardiogram,El evated troponin Take 0.5 Tablets (2.5 mg) by mouth once daily. 90 Tablet 1 4 Active polyethylene glycol-electrolyt e (GOLYTELY) 236-22.74-6.74 -5.86 gram suspensionIndicat ions:Encounter for screening colonoscopy Drink 2 liters the day before the procedure and 2 liters 6 hours prior to procedure. 4000 mL 5 Active NebulizerIndicati ons:Wheezing Nebulizer, disposable neb kit x 4, reuseable neb kit x 1, mask x 1, filters x 1. Frequency of use: daily; Medication: albuterol Length of need: 12 months 1 Each 5 Active albuterol 0.083% (2.5 mg/3 mL) neb solutionIndicatio ns:Wheezing Inhale 3 mL (2.5 mg) via a nebulizer every 4 hours if needed for Wheezing or Cough. 99 mL 5 Active cephalexin 500 mg capsuleIndication s:UTI (urinary tract infection), uncomplicated Take 1 Capsule (500 mg) by mouth three times daily for 7 days. 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 Seizure 01/05/2023 Primary hypertension 01/05/2023 Hyponatremia 06/08/2014 Tobacco use disorder 10/28/2007 Resolved Problems Problem Noted Date Diagnosed Date Resolved Date Alcoholic intoxication with complication 01/05/2023 01/24/2024 Alcohol withdrawal syndrome, with delirium 01/05/2023 12/18/2024 Cigarette nicotine dependenc e without complication 01/05/2023 01/24/2024 Reactive airway disease, mil d persistent, with acute exacerbation 02/18/2021 12/30/2021 Closed trimalleolar fracture of right ankle 07/11/2019 01/24/2024 H/O alcohol abuse 06/08/2014 01/24/2024 Unspecified essential hypertension 10/28/2007 01/24/2024 Encounters Date Type Department Care Team Description 01/19/2025 3:40 PM PHLEBOTOMY TECH Office Visit [facility] [address] [place] [address] Lisette Reynolds PA Concerns (Cough/cold. Diarrhea, runny nose, cramping, weak, ears and throat discomfort. Some nose bleeds from blowing nose./ last weekend advised about possible mal-nutrition ) 01/19/2025 Travel 01/16/2025 Travel 01/02/2025 Telephone [facility] [address] [place] [address] Ever Acuña MD 01/01/2025 Medical Messaging [facility] [address] [place] [address] Lisette Reynolds PA Colonoscopy test 12/18/2024 1:30 PM PHLEBOTOMY TECH Ancillary Procedure [facility] [address] [place] [address] 12/18/2024 9:10 AM PHLEBOTOMY TECH Office Visit [facility] [address] [place] [address] Catalina Colin MD Gi Problem (Went to 12/17 for cold, Wondering about Bowel obstruction ) 12/18/2024 Travel 12/17/2024 Orders Only [facility] Scanner 1 scan: (1-Ord) [facility], XR ABD MIN 2V, 12/17/2024 11/07/2024 8:00 AM PHLEBOTOMY TECH Office Visit [address] [place] [address] Ry Dalton MD CV General Cardiology Est (6 Mo F/U; Pt has no cardiac concerns) 11/07/2024 Travel 11/02/2024 Travel from Last 3 Months Immunizations Name Administration Dates Next Due COVID-19 vaccine (Pfizer-BioNTech 30mcg/0.3mL) P F, MDV 04/21/2021,03/31/2021 Tdap 09/08/2023,10/28/2007 Family History Medical History Relation Name Comments Other Brother x 4 at least a coup le with hypertension Depression Daughter Cancer-colon Father Cancer-breast Maternal Grandmother Heart Disease Maternal Grandmother Colon polyps Mother Gallbladder disease Mother Hypertension Mother Ulcerative colitis Mother Dementia Paternal Grandfather No Known Problems Sister Cancer-ovarian No Family History Relation Name Status Comments Brother x 4 Alive Daughter Alive Father Alive Maternal Grandfather Maternal Grandmother Mother Alive Paternal Grandfather Paternal Grandmother Sister Alive Social History Tobacco Use Types Packs/Day Years Used Date Smoking Tobacco: Every Day Cigarettes 0.9 36.1 Started: 1988 Smokeless Tobacco: Never Tobacco Cessation:Ready to Q uit: No; Counseling Given: No Comments:1 PPD 04/21/24 Alcohol Use Standard Drinks/Week Comments Yes 0 (1 standard drink = 0.6 oz pur e alcohol) 3 drinks daily PHQ-2 Answer Date Recorded PHQ-2 TOTAL SCORE 0 09/08/2023 Social Connections Answer Date Recorded Do you often feel lonely or isolated from those around you? 0 01/24/2024 Alcohol Use Answer Date Recorded How often do you have a drink containing alcohol ? 4 07/10/2024 How many drinks containing a lcohol do you have on a typical day when you are drinking? 1 07/10/2024 How often do you have five or more drinks on one occasion? 0 07/10/2024 Financial Resource Strain Answer Date R ecorded Difficulty of Paying Living Expenses 3 01/24/2024 Difficulty of Paying Living Expenses Not on file 01/24/2024 Food Insecurity Answer Date Recorded Do you worry your food will run out before you are able to buy more? 1 01/24/2024 Transportation Needs Answer Date Record ed Does lack of transportation keep you from medica l appointments? 1 01/24/2024 Does lack of transportation keep you from work, meetings or getting things that you need? 1 01/24/2024 Housing Stability Answer Date Recorded What is your housing situation today? 1 01/24/2024 Utilities Answer Date Recorded Do you have trouble paying f or utilities (for example, heat, electricity, water, phone)? 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 Not on file Not on file No t on file Obstetrics History Para Term AB IAB SAB Ectopic Multiple Livin g Live Births 2 1 1 0 0 0 0 0 1 1 Date Outcome GA Total Labor Labor/2nd/3rd Weight Sex Type Anes PTL Mary A1 A5 Name Clin Term 1998 F Vag Living Last Filed Vital Signs Vital Sign Reading Time Taken Comments Blood Pressure 134/68 01/19/2025 3:52 PM PHLEBOTOMY TECH Pulse 83 01/19/2025 3:52 PM PHLEBOTOMY TECH Temperature 36.6 C (97.8 F) 12/18/2024 9:19 AM PHLEBOTOMY TECH Respiratory Rate 14 08/02/2024 7:28 AM CDT Oxygen Saturation 97% 01/19/2025 3:52 PM PHLEBOTOMY TECH Inhaled Oxygen Concentration - - Weight 38.8 kg (85 lb 9.6 oz) 01/19/2025 3:52 PM PHLEBOTOMY TECH Height 149.9 cm (4' 11.02) 11/07/2024 7:[address] Body Mass Index 17.28 11/07/2024 7:48 AM PHLEBOTOMY TECH Plan of Treatment Upcoming Encounters Date Type Department Care Team (Late st Contact Info) Description 03/20/2025 8:30 AM CDT Nutrition/Dietici an [facility] [address] [place] [address] [place] [address] 03/21/2025 7:50 AM CDT Office Visit [facility] [address] [place] [address] Lisette Reynolds PA [address] [place] [address] 04/06/2025 7:45 AM CDT Office Visit [facility] [address] [place] [address] Ever Acuña MD [address] [place] [address] Health Maintenance Due Date Last Done Comments Pneumococcal series for age 6-49 (1 of 2 - PCV) 1995 Colonoscopy through age 75 2021 COVID-19 vaccine series ( - 2023- season) 2024 04/21/2021, 03/31/2021 Influenza for age 9-49 07/30/2024 Depression screening for age 12+ 09/08/2024 09/08/2023, 12/30/2021, 05/01/2020, Additional history exists Pap test for age 21-65 04/29/2025 , 04/29/2020, 06/13/2015, Additional history exists Mammogram for age 45-75 05/10/2025 05/10/20 24, 05/07/2023, 04/30/2022, Additional history exists BMI (ht and wt on same day) for age 18+ 11/07/2025 11/07/2024, 08/02/2024, 05/03/2024, Additional history exists Lipids for age 45-75 09/08/2028 09/08/2023, 01/05/2023, 04/29/2020, Additional history exists Tetanus booster 09/08/2033 09/08/2023, 10/28/2007 Hepatitis C screening for ag e 18-79 Completed 12/18/2020 HIV for age 15-65 Completed 09/08/2023 Tdap Completed 09/08/2023, 10/28/2007 Procedures Procedure Name Priority Date/Time Associated Diagnosis Comments COMP METABOLIC PANEL Routine 01/19/2025 4:57 PM PHLEBOTOMY TECH Hyponatremia Alcohol use disorder, severe, dependence (HC) Liver disease, chronic, due to alcohol (HC) CT ABDOMEN PELVIS W STAT 12/18/2024 1 1:03 AM PHLEBOTOMY TECH Abdominal pain, generalized UR[facility]AL[facility]IS [facility] P[facility]IP ([facility]) Routine 12/18/2024 10:09 AM PHLEBOTOMY TECH Abdominal pain, generalized CWS PATH REVIEW HEMATOLOGY STAT 12/18/2024 10:07 AM PHLEBOTOMY TECH Abdominal pain, generalized RED CELL MORPHOLOGY STAT 12/18/2024 1 0:07 AM PHLEBOTOMY TECH Abdominal pain, generalized PLATELET ESTIMATE STAT 12/18/2024 10: 07 AM PHLEBOTOMY TECH Abdominal pain, generalized MANUAL DIFFERENTIAL STAT 12/18/2024 1 0:07 AM PHLEBOTOMY TECH Abdominal pain, generalized CBC WITH AUTO DIFFERENTIAL STAT 12/18/2024 10:07 AM PHLEBOTOMY TECH Abdominal pain, generalized URINALYSIS MICROSCOPIC STAT 12/18/2024 10:07 AM PHLEBOTOMY TECH Abdominal pain, generalized URINE CULTURE Routine 12/18/2024 10:07 AM PHLEBOTOMY TECH Abdominal pain, generalized CBC WITH AUTO DIFFERENTIAL STAT 12/18/2024 10:07 AM PHLEBOTOMY TECH Abdominal pain, generalized COMP METABOLIC PANEL STAT 12/18/2024 10:07 AM PHLEBOTOMY TECH Abdominal pain, generalized COVID/FLU/RSV PANEL Routine 12/18/2024 1 0:03 AM PHLEBOTOMY TECH Viral URI with cough SCAN-RADIOLOGY REPORT 12/17/2024 12:00 AM PHLEBOTOMY TECH XR MAMMO JANETT BILAT SCREEN Routine 05/10/2024 8:10 AM CDT Visit for screening mammogram ANTI HIV 1/2 Routine 09/08/2023 8:30 AM CDT Encounter for screening for human immunodeficiency virus (HIV) LIPID PANEL W REFLEX MEASURED LDL Routine 09/08/2023 8:30 AM CDT Lipid screening ANTI HCV Routine 12/18/2020 9:40 AM PHLEBOTOMY TECH Weight loss, non-intentional LEAF BINNER THIN PREP PAP SCREEN IMAGED Routine 04/29/2020 9:50 AM CDT Cervical cancer screening from Last 3 Months or Most Recently Relevant to Health Maintenance Results * (ABNORMAL) COMP METABOLIC PANEL (01/19/2025 4:57 PM PHLEBOTOMY TECH) Only the most recent of2 resultswithin the time period is included. GLUCOSE 95 65 - 99 mg/dL [facility] Comment: Fasting reference interval UREA NITROGEN (BUN) 15 7 - 25 mg/dL [facility] CREATININE 0.45(L) 0.50 - 0.99 mg/dL [facility] EGFR 119 > OR = 60 mL/min/1.7 3m2 [facility] BUN/CREATININE RATIO 33(H) 6 - 22 (calc) [facility] SODIUM 126(L) 135 - 146 mmol/L [facility] POTASSIUM 3.8 3.5 - 5.3 mmol/L [facility] CHLORIDE 92(L) 98 - 110 mmol/L [facility] CARBON DIOXIDE 22 20 - 32 mmol/L [facility] CALCIUM 8.5(L) 8.6 - 10.2 mg/dL [facility] PROTEIN, TOTAL 6.7 6.1 - 8.1 g/dL [facility] ALBUMIN 3.7 3.6 - 5.1 g/dL [facility] GLOBULIN 3.0 1.9 - 3.7 g/dL (calc) [facility] ALBUMIN/GLOBULIN RATIO 1.2 1.0 - 2.5 (calc) [facility] BILIRUBIN, TOTAL 1.0 0.2 - 1.2 mg/dL [facility] ALKALINE PHOSPHATASE 291(H) 31 - 125 U/L [facility] AST 263(H) 10 - 35 U/L [facility] ALT 118(H) 6 - 29 U/L [facility] Blood BLOOD SPECIMEN / Unknown 01/19/2025 4:57 PM PHLEBOTOMY TECH 01/19/2025 4:57 PM PHLEBOTOMY TECH Lisette PATINO CHEMISTRY Final Res ult [facility] [address] [place] [address], [facility] [address] [place] [address] * CT ABDOMEN PELVIS W (12/18/2024 11:03 AM PHLEBOTOMY TECH) Anatomical Region Laterality Modality Abdomen, Pelvis, AORTA, LIVER, SPLEEN Computed Tomography 12/18/2024 11:2 3 AM PHLEBOTOMY TECH Narrative 12/18/2024 11:23 AM PHLEBOTOMY TECH For Patients: As a result of the Century Cures Act, medical imaging exams and procedure reports are released immediately into your electronic medical record. You may view this report before your referring provider. If you have questions, please contact your health care provider. Indication: Abdominal pain, acute nonlocalized, possible early SBO seen on outpatient plain- film Technique: Volumetric multidetector CT images of the abdomen and pelvis were obtained after the administration of intravenous contrast. 100 cc Omnipaque 350 low osmolar intravenous contrast Comparison: CT chest, abdomen and pelvis February 05, 2023 Findings: There is mild to moderate central bronchial thickening with basilar atelectasis and parenchymal scar. There is again seen hypodensity within the medial inferior right liver lobe likely representing hemangioma. The portal vein is patent. The gallbladder is unremarkable without evidence of radiopaque calculus. There is no significant common biliary ductal dilatation or abrupt cut off. The spleen is normal in enhancement and size. There is again seen focal dilatation of the 2nd and 3rd portions of the duodenum with focal change in caliber beyond the crossing of the mesenteric artery which may represent persistent changes secondary to nutcracker syndrome. Otherwise the stomach is grossly decompressed. The pancreas is normal in enhancement without significant atrophy. The adrenal glands are unremarkable. The kidneys demonstrate preserved corticomedullary differentiation without evidence of obstructive uropathy. There is scattered fluid seen throughout the central small bowel with moderate stool. Decompressed appearance of the descending and sigmoid colon with questionable mucosal hyperemia and suggestion of minimal inflammatory changes within the left upper quadrant omentum seen on series 2, image 75. No evidence of rim enhancing fluid collection. The appendix is unremarkable. There is no significant mesenteric, retroperitoneal, or pelvic sidewall lymph nodes. The aorta is non aneurysmal with minimal scattered atherosclerotic calcification and mural plaque. The solid pelvic viscera are grossly unremarkable. There is no free fluid or free air. The anterior abdominal wall is intact without significant hernias. The lumbar vertebral body heights are grossly maintained with moderate degenerative disc disease. There is no significant spondylolisthesis or displaced fracture. Impression: 1. Demonstration of decompressed appearance of the descending and sigmoid colon with questionable mild thickening and mucosal hyperemia with additional subtle inflammatory changes in the left upper quadrant omentum which may represent sequela of underlying colitis. Minimal fluid is seen within central small bowel with mild mucosal hyperemia which could represent a component of enteritis. No definite evidence of obstruction. 2. 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 Please note that all CT scans at this facility use dose modulation, iterative reconstruction, and/or weight-based dosing when appropriate to reduce radiation dose to as low as reasonably achievable. Dictated by Pool Granger MD @ 12/18/2024 11:23:10 AM (Electronically Signed) Procedure Note Pool Granger MD - 12/18/2024 For Patients: As a result of the 21st Century Cures Act, medical imagingexams and procedure reports are released immediately into your electronicmedical record. You may view this report before your referring provider.If you have questions, please contact your health care provider. Indication: Abdominal pain, acute nonlocalized, possible early SBO seen on outpatientplain- film Technique: Volumetric multidetector CT images of the abdomen and pelvis were obtainedafter the administration of intravenous contrast. 100 cc Omnipaque 350 low osmolar intravenous contrast Comparison: CT chest, abdomen and pelvis February 05, 2023 Findings: There is mild to moderate central bronchial thickening with basilaratelectasis and parenchymal scar. There is again seen hypodensity within the medial inferior right liverlobe likely representing hemangioma. The portal vein is patent. The gallbladder is unremarkable without evidence of radiopaque calculus. There is no significant common biliary ductal dilatation or abrupt cutoff. The spleen is normal in enhancement and size. There is again seen focal dilatation of the 2nd and 3rd portions of theduodenum with focal change in caliber beyond the crossing of themesenteric artery which may represent persistent changes secondary tonutcracker syndrome. Otherwise the stomach is grossly decompressed. The pancreas is normal in enhancement without significant atrophy. The adrenal glands are unremarkable. The kidneys demonstrate preserved corticomedullary differentiation withoutevidence of obstructive uropathy. There is scattered fluid seen throughout the central small bowel withmoderate stool. Decompressed appearance of the descending and sigmoidcolon with questionable mucosal hyperemia and suggestion of minimalinflammatory changes within the left upper quadrant omentum seen on series2, image 75. No evidence of rim enhancing fluid collection. The appendix is unremarkable. There is no significant mesenteric, retroperitoneal, or pelvic sidewalllymph nodes. The aorta is non aneurysmal with minimal scattered atheroscleroticcalcification and mural plaque. The solid pelvic viscera are grossly unremarkable. There is no free fluid or free air. The anterior abdominal wall is intact without significant hernias. The lumbar vertebral body heights are grossly maintained with moderatedegenerative disc disease. There is no significant spondylolisthesis ordisplaced fracture. Impression: 1. Demonstration of decompressed appearance of the descending and sigmoidcolon with questionable mild thickening and mucosal hyperemia withadditional subtle inflammatory changes in the left upper quadrant omentumwhich may represent sequela of underlying colitis. Minimal fluid is seenwithin central small bowel with mild mucosal hyperemia which couldrepresent a component of enteritis. No definite evidence of obstruction. 2. Stable focal dilatation of the 2nd and 3rd portions of the duodenumwith abrupt transition at the ligament of Treitz which may represent mildmesenteric artery/nutcracker syndrome. Please note that all CT scans at this facility use dose modulation,iterative reconstruction, and/or weight-based dosing when appropriate toreduce radiation dose to as low as reasonably achievable. Dictated by Pool Granger MD @ 12/18/2024 11:23:10 AM (Electronically Signed) Catalina Colin MD CT Final Resul t * (ABNORMAL) POCT Urinalysis Dipstick Only (12/18/2024 10:09 AM PHLEBOTOMY TECH) PH 5.5 5.0 - 8.0 [facility] SPECIFIC GRAVITY 1.010 1.001 - 1.035 [facility] GLUCOSE NEGATIVE NEGATIVE [facility] BILIRUBIN NEGATIVE NEGATIVE [facility] KETONES NEGATIVE NEGATIVE [facility] OCCULT BLOOD NEGATIVE NEGATIVE [facility] PROTEIN 1+(A) NEGATIVE [facility] NITRITE NEGATIVE NEGATIVE [facility] LEUKOCYTE ESTERASE 1+(A) NEGATIVE [facility] Urine URINE SPECIMEN / Unknown 12/18/2024 10:09 AM PHLEBOTOMY TECH 12/18/2024 10:09 AM PHLEBOTOMY TECH Narrative [facility] - 12/18/2024 10:27 AM PHLEBOTOMY TECH FASTING:YES FASTING: YES Catalina Colin MD URINE Final Resul t [facility] [address] [place] [address], [facility] [address] [place] [address] * CWS PATH REVIEW HEMATOLOGY (12/18/2024 10:07 AM PHLEBOTOMY TECH) PATH COMMENT Reviewed by BB on 12/19/2024 12/19/2024 1:20 PM PHLEBOTOMY TECH [facility] Blood BLOOD SPECIMEN / Unknown [facility] / Unknown 12/18/2024 10:07 AM PHLEBOTOMY TECH 12/18/2024 10:07 AM PHLEBOTOMY TECH us Catalina Colin MD LABORATORY Final Resul t [facility] [address] [place] [address], * (ABNORMAL) CBC WITH AUTO DIFFERENTIAL (12/18/2024 10:07 AM PHLEBOTOMY TECH) WHITE BLOOD COUNT 2.4(L) 4.5 - 11.0 thou/cu mm 12/18/2024 1:[address] [facility] RED BLOOD COUNT 3.54(L) 4.00 - 5.20 mil/cu mm 12/18/2024 1:[address] [facility] HEMOGLOBIN 12.3 12.0 - 16.0 g/dL 12/18/2024 1:[address] [facility] HEMATOCRIT 35.4 33.0 - 51.0 % 12/18/2024 1:[address] [facility] MCV 100 80 - 100 fL 12/18/2024 1:[address] [facility] MCH 34.7(H) 26.0 - 34.0 pg 12/18/2024 1:[address] [facility] MCHC 34.7 32.0 - 36.0 g/dL 12/18/2024 1:[address] [facility] RDW 11.8 11.5 - 15.5 % 12/18/2024 1:[address] [facility] PLATELET COUNT 85(L) 140 - 440 thou/cu mm 12/18/2024 1:[address] [facility] MPV 10.8 6.5 - 11.0 fL 12/18/2024 1:[address] [facility] Blood BLOOD SPECIMEN / Unknown [facility] / Unknown 12/18/2024 10:07 AM PHLEBOTOMY TECH 12/18/2024 10:07 AM PHLEBOTOMY TECH us Catalina Colin MD HEMATOLOGY Final Resul t [facility] [address] [place] [address] * RED CELL MORPHOLOGY (12/18/2024 10:07 AM PHLEBOTOMY TECH) [facility] RBC COMMENT RBC morphology appears normal RBC morphology appears normal, RBC morphology within normal limits for newborns. 12/18/2024 1:50 PM PHLEBOTOMY TECH [facility] LARGE PLATELETS Present 12/18/2024 1:50 PM PHLEBOTOMY TECH [facility] Blood BLOOD SPECIMEN / Unknown [facility] / Unknown 12/18/2024 10:07 AM PHLEBOTOMY TECH 12/18/2024 10:07 AM PHLEBOTOMY TECH Catalina Colin MD HEMATOLOGY Final Resul t [facility] [address] [place] [address] * (ABNORMAL) PLATELET ESTIMATE (12/18/2024 10:07 AM PHLEBOTOMY TECH) [facility] PLATELET ESTIMATE Decreased (A) Adequate, No estimate 12/18/2024 1:50 PM PHLEBOTOMY TECH [facility] Blood BLOOD SPECIMEN / Unknown [facility] / Unknown 12/18/2024 10:07 AM PHLEBOTOMY TECH 12/18/2024 10:07 AM PHLEBOTOMY TECH Catalina Colin MD HEMATOLOGY Final Resul t [facility] [address] [place] [address] * (ABNORMAL) MANUAL DIFFERENTIAL (12/18/2024 10:07 AM PHLEBOTOMY TECH) [facility] % NEUTROPHILS 33.0 % 12/18/2024 1:[address] [facility] % LYMPHOCYTES 60.0 % 12/18/2024 1:[address] [facility] % MONOCYTES 7.0 % 12/18/2024 1:[address] [facility] [facility] [facility] % EOSINOPHILS 0.0 % 12/18/2024 1:[address] [facility] % BASOPHILS 0.0 % 12/18/2024 1:[address] [facility] NEUTROPHILS ABSOLUTE 0.8(L) 1.7 - 7.0 thou/cu mm 12/18/2024 1:[address] [facility] LYMPHOCYTES ABSOLUTE 1.4 0.9 - 2.9 thou/cu mm 12/18/2024 1:[address] [facility] MONOCYTES ABSOLUTE 0.2 <0.9 thou/cu mm 12/18/2024 1:[address] [facility] EOSINOPHILS ABSOLUTE 0.0 <0.5 thou/cu mm 12/18/2024 1:[address] [facility] BASOPHILS ABSOLUTE 0.0 <0.3 thou/cu mm 12/18/2024 1:[address] [facility] Blood BLOOD SPECIMEN / Unknown [facility] Collect / Unknown 12/18/2024 10:07 AM PHLEBOTOMY TECH 12/18/2024 10:07 AM PHLEBOTOMY TECH Catalina Colin MD HEMATOLOGY Final Resul t Performing Organization Address City/[facility] Co de Phone Number [facility] [address] [place] [address] * (ABNORMAL) URINALYSIS MICROSCOPIC (12/18/2024 10:07 AM PHLEBOTOMY TECH) RBC 0-2 0-2, None Seen /HPF 12/18/2024 1:[address] [facility] WBC 11-25(A) 0-2, 3-5, None Seen /HPF 12/18/2024 1:[address] [facility] BACTERIA Many(A) None Seen, Rare, Few Bacteria/H PF 12/18/2024 1:[address] [facility] EPITHELIAL CELLS Few None Seen, Few Epi/HPF 12/18/2024 1:[address] [facility] Urine URINE SPECIMEN / Unknown Non-Blood / Unknown 12/18/2024 10:07 AM PHLEBOTOMY TECH 12/18/2024 10:07 AM PHLEBOTOMY TECH Catalina Colin MD URINE Final Resul t Performing Organization Address City/[facility]/ZIP Co de Phone Number [facility] [address] [place] [address] * (ABNORMAL) URINE CULTURE (12/18/2024 10:07 AM PHLEBOTOMY TECH) CULTURE RESULT(A) 12/21/2024 7:00 AM PHLEBOTOMY TECH [facility] CULTURE >100,000 CFU/mL Escherichia coli 12/21/2024 7:00 AM PHLEBOTOMY TECH [facility] Urine URINE SPECIMEN / Unknown Non-Blood / Unknown 12/18/2024 10:07 AM PHLEBOTOMY TECH 12/18/2024 10:07 AM PHLEBOTOMY TECH Narrative Organism Antibiotic Method Susceptibility Escherichia coli TRIMETHOPRIM/SULF <=12/17: S Escherichia coli AMPICILLIN 4: S Escherichia coli CEFAZOLIN 4: I Escherichia coli CEFAZOLIN-UC 4: S Comment:Cefazolin-UC interpretations are for therapy of uncomplicated UTIs due to E.coli, K.pneumoniae, or P.mirablis. Cefazolin breakpoint is used as a surrogate to predict results for the oral agents - cefdinir, cefuroxime, and cephalexin, when used for therapy of uncomplicated UTIs due to E coli, K, pneumoniae, and P. mirabilis. The FDA recommends cefadroxil susceptibility can be deduced from cefazolin. Escherichia coli GENTAMICIN <=1: S Escherichia coli CEFTRIAXONE <=0.25: S Escherichia coli CEFTAZIDIME <=0.5: S Escherichia coli LEVOFLOXACIN <=0.12: S Escherichia coli CIPROFLOXACIN <=0.06: S Escherichia coli PIPERACILLIN/TAZO <=4: S Escherichia coli AMPICILLIN/SULBACTAM <=2: S Escherichia coli CEFEPIME <=0.12: S Escherichia coli MEROPENEM <=0.25: S Escherichia coli NITROFURANTOIN <=16: S us Catalina Colin MD MICROBIOLOGY Final Resul t [facility] [address] [place] [address], * COVID/FLU/RSV PANEL (12/18/2024 10:03 AM PHLEBOTOMY TECH) COVID 19 [facility] Negative Negative 12/18/2024 4:17 PM PHLEBOTOMY TECH [facility] Comment:All PCR tests are feng bject to false negative result due to variability in viral load and collection technique. A negative result does not rule out a SARS-CoV-2 infection. Clinical correlation required. INFLUENZA A PCR Negative 4:17 PM PHLEBOTOMY TECH [facility] INFLUENZA B PCR Negative 4:17 PM PHLEBOTOMY TECH [facility] Respiratory Syncytial Virus Negative 12/18/2024 4:17 PM PHLEBOTOMY TECH [facility] Swab NASOPHARYNGEAL SWAB / Unknown Non-Blood / Unknown 12/18/2024 10:03 AM PHLEBOTOMY TECH 12/18/2024 10:03 AM PHLEBOTOMY TECH us Catalina Colin MD MICROBIOLOGY Final Resul t [facility] [address] [place] [address], [place] * SCAN-RADIOLOGY REPORT (12/17/2024 12:00 AM PHLEBOTOMY TECH) Anatomical Region Laterality Modality Other us Scanner OTHER Final Result * XR MAMMO JANETT BILAT SCREEN (05/10/2024 8:10 AM CDT) Anatomical Region Laterality Modality BREASTS, Breast Left, Breast Right Bilateral Mammography Impressions 05/12/2024 11:14 AM CDT There is no radiographic evidence for malignancy. Recommend annual mammograms. MAMMOGRAM ASSESSMENT: ACR 1 Negative PATIENTS: You will also receive a letter with your examination results in an easy to read format. If you have questions about your results, please contact your referring provider. Narrative 05/12/2024 11:14 AM CDT For Patients: As a result of the Century Cures Act, medical imaging exams and procedure reports are released immediately into your electronic medical record. You may view this report before your referring provider. If you have questions, please contact your health care provider. XR MAMMO JANETT BILAT SCREEN [[id number]] CLINICAL HISTORY: This is an asymptomatic 48 y.o. patient. INDICATION FOR EXAM: Mammogram Screening. TECHNIQUE: CC & MLO views were obtained. This study was evaluated with the assistance of Computer-Aided Detection. Breast Tomosynthesis was used in interpretation. COMPARISON FILM: Yes 05/07/23 [facility] FINDINGS: There are scattered areas of fibroglandular density. There are no dominant masses, suspicious micro calcifications or areas of architectural distortion. Lisette PATINO MAMMO Final Res ult * (ABNORMAL) LIPID PANEL W REFLEX MEASURED LDL [[id number]] (09/08/2023 8:30 AM CDT) CHOLESTEROL,TOTAL 201(H) 100 - 199 mg/dL 09/08/2023 4:31 PM CDT [facility] Comment: Cholesterol, Total Reference Ranges Desirable <200 mg/dL Borderline 200-239 mg/dL High >=240 mg/dL TRIGLYCERIDES 157(H) <150 mg/dL 09/08/2023 4:31 PM CDT [facility] HDL CHOLESTEROL 115 >40 mg/dL 4:31 PM CDT [facility] NON-HDL CHOLESTEROL 86 <145 mg/dl 09/08/2023 4:31 PM CDT [facility] CHOL/HDL RATIO 1.75 <4.50 09/08/2023 4:31 PM CDT [facility] LDL CHOLESTEROL 55 <=130 mg/dL 09/08/2023 4:31 PM CDT [facility] VLDL CHOLESTEROL 31(H) <=30 mg/dL 09/08/2023 4:31 PM CDT [facility] PROVIDER ORDERED STATUS RANDOM 09/08/2023 4:31 PM CDT [facility] Blood BLOOD SPECIMEN / Unknown Venipuncture / Unknown 09/08/2023 8:30 AM CDT 09/08/2023 8:32 AM CDT Lisette PATINO CHEMISTRY Final Res ult [facility] [address] [place] [address], [place] * ANTI HIV 1/2 [[id number]] (09/08/2023 8:30 AM CDT) Pathologist [facility] HIV-1/HIV-2 SCREEN Non-Reacti ve Non-Reacti ve 09/08/2023 4:12 PM CDT [facility] Comment:HIV-1 p24 and HIV-1/ HIV-2 Ab Not Detected. Blood BLOOD SPECIMEN / Unknown Venipuncture / Unknown 09/08/2023 8:30 AM CDT 09/08/2023 8:32 AM CDT Lisette PATINO SEND OUTS Final Res ult Performing Organization Address [facility] Co de Phone Number [facility] [address] [place] [address], [place] * ANTI HCV (12/18/2020 9:40 AM PHLEBOTOMY TECH) [facility] HEPATITIS C ANTIBODY Non-React weston Non-React weston 12/18/2020 6:32 PM PHLEBOTOMY TECH [facility] Comment:Antibodies to HCV no t detected; does not exclude the possibility of exposure to HCV. Blood BLOOD SPECIMEN / Unknown Venipuncture / Unknown 12/18/2020 9:40 AM PHLEBOTOMY TECH 12/18/2020 9:50 AM PHLEBOTOMY TECH us Luzmaria Ledbetter MD SEND OUTS Final Result Performing Organization Address [facility]/ZIP Co de Phone Number [facility] [address] [place] [address], [place] * LEAF BINNER THIN PREP PAP SCREEN IMAGED (04/29/2020 9:50 AM CDT) [facility] Case Report Gynecologic Cytology Report Case: [id number] Authorizing Provider: Luzmaria Ledbetter MD Collected: 04/29/2020 0950 Ordering Location: [facility] Received: 04/29/2020 1031 Clinic First Screen: Greg العراقي Specimen: LEAF BINNER ThinPrep Vial Screening, Cervical 05/02/2020 12:42 PM CDT [facility] [employer] [facility] INTERPRETATION/ RESULT NEGATIVE FOR INTRAEPITHELIAL LESION OR MALIGNANCY (NIL) (none) 05/02/2020 12:42 PM CDT [facility] IMEN ADEQUACY Satisfactory for evaluation Endocervical component present 05/02/2020 12:42 PM CDT [facility] HPV REQUEST HPV and PAP 05/02/2020 12:42 PM CDT [facility] [employer] [facility] Date of LMP 03/29/20 05/02/2020 12:42 PM CDT [facility] Last Pap Date 06/13/15 05/02/2020 12:42 PM CDT [facility] Last Pap Result NIL 0 12:42 PM CDT [facility] Abnormal Pap or [place] Bx in last 5 years No 05/02/2020 12:42 PM CDT [facility] Menstrual Status Regular Periods 05/02/2020 12:42 PM CDT [facility] [place] Bx Done Today No 05/02/2020 12:42 PM CDT [facility] Additional Information None given 05/02/2020 12:42 PM CDT [facility] Comment: Cytology is screened at [facility] - [address], [place] [address] and [facility] - [address] [place] [address], [place] [address] and [facility] - [address] [place] [address] Interpreted at [facility] - [address], [place] [address] Automated Review Successful 05/02/2020 12:42 PM CDT [facility] Comment:Specimen processed s uccessfully by automated tin stacker device, ThinPrep Imaging System, [employer] ANCILLARY TESTING LEAF BINNER HPV Ordered, Please see separate report 05/02/2020 12:42 PM CDT [facility] Note The pap test is a screening technique, not a diagnostic procedure. It is used primarily to screen for squamous cancers and precursor lesions. Published studies have shown that it is subject to both false negative and false positive results. The pap test should not be used as the sole means to diagnose or exclude pre-malignant and malignant lesions. 05/02/2020 12:42 PM CDT [facility] Other (Cervical) Non-Blood / Unknown 04/29/2020 9:50 AM CDT 04/29/2020 10:31 AM CDT us Luzmaria Ledbetter MD PATHOLOGY/CYTOLOGY Final Resu lt [facility] [address] [place] [address], [place] from Last 3 Months or Most Recently Relevant to Health Maintenance Additional Health Concerns Infection Onset Date Last Indicated Rule-Out C.diff 12/23/2020 12/23/2020 Rule-Out Stool Pathogen 01/19/2025 01/19/20 25 Insurance [facility] Care Teams Securities Broker Relationship Specialty Start Date End Date Lisette Reynolds PA [address] [place] [address] PCP - General Physician External Auditor 05/07/23
--- OUTSIDE RECORDS SUMMARY | 2025-01-22 07:22 | XMS_ITS | Clinical Summary ---
Author Organization [facility] Address [address] [place] [id number] Care Team Providers Care Home Insurance Agent Name Role Phone Luzmaria Ledbetter MD Primary Care Provider Unavailab le Allergies Active Allergy Reactions Criticality Noted Date Comments Cats Other (See Comments) 07/13/2019 hayfever symptoms Doxycycline Other (See Comments) 07/13/2019 Dizziness; nausea Medications oxyCODONE (ROXICODONE) 5 MG tablet Take 1 tablet (5 mg) by mouth every 6 hours as needed for pain 12 tablet 9 Active amLODIPine (NORVASC) 10 MG tablet Take 10 mg by mouth daily Active lisinopril (PRINIVIL/ZESTRI L) 5 MG tablet Take 5 mg by mouth daily Active acetaminophen (TYLENOL) 500 MG tablet Take 1,000 mg by mouth every 6 hours as needed for mild pain Active HYDROcodone-acet aminophen (NORCO) 5-325 MG tabletIndication s:Closed bimalleolar fracture of right ankle, initial encounter Take 1-2 tablets by mouth every 4 hours as needed for moderate to severe pain 20 tablet 9 Active senna-docusate (SENOKOT-S/PERIC OLACE) 8.6-50 MG tabletIndication s:Closed bimalleolar fracture of right ankle, initial encounter Take 1-2 tablets by mouth 2 times daily 30 tablet 9 Active Social History Tobacco Use Types Packs/Day Years Used Date Smoking Tobacco: Every Day Cigarettes 1 27 Smokeless Tobacco: Never Tobacco Cessation:Ready to Q uit: Yes Alcohol Use Standard Drinks/Week Comments Yes 0 (1 standard drink = 0.6 oz pur e alcohol) occas Comments No Sex and Gender Information Value Date Recorded Sex Assigned at Not on file Legal Sex Female 9:51 PM CDT Gender Identity Not on file Sexual Orientation Not on file Last Filed Vital Signs Vital Sign Reading Time Taken Comments Blood Pressure 118/69 07/14/2019 11:50 AM CDT Pulse 55 07/14/2019 10:57 AM CDT Temperature 36.8 C (98.3 F) 07/14/2019 11:50 AM CDT Respiratory Rate 14 07/14/2019 11:50 AM CDT Oxygen Saturation 100% 07/14/2019 11:50 AM CDT Inhaled Oxygen Concentration - - Weight 44.9 kg (98 lb 14.4 oz) 07/14/2019 6:03 A M CDT Height 149.9 cm (4' 11) 07/14/2019 6:03 AM CDT Body Mass Index 19.98 07/14/2019 6:03 AM CDT Plan of Treatment Not on file Medical Devices Implanted Type Area Car Worker Device Identifier Shelf Expiration Date Model / Serial / Lot Distal Lateral Fibula Plate 77 Mm 3 Hole Implanted:Qty: 1 on 07/14/2019 by Preet Gotti MD at [facility] Right: Ankle [place] [id number] / / [id number] JUL 2019 3.5 Mm Locking Screw 10 Mm Implanted:Qty: 1 on 07/14/2019 by Preet Gotti MD at [facility] Right: Ankle [place] [id number] / / [id number] JUL 2019 3.5 Mm Locking Screw 16 Mm Implanted:Qty: 2 on 07/14/2019 by Preet Gotti MD at [facility] Right: Ankle [place] [id number] / / [id number] JUL 2019 3.5 Mm Locking Screw 12 Mm Implanted:Qty: 1 on 07/14/2019 by Preet Gotti MD at [facility] Right: Ankle [place] [id number] / / [id number] JUL 2019 3.5 Mm Locking Screw 14 Mm Implanted:Qty: 1 on 07/14/2019 by Preet Gotti MD at [facility] Right: Ankle [place] [id number] / / [id number] JUL 2019 3.5 Mm Non-Locking Screw 14 Mm Implanted:Qty: 2 on 07/14/2019 by Preet Gotti MD at [facility] Right: Ankle [place] [id number] JUL 2019 4.0 Mm Partially-Thre aded Screws 40 Mm Implanted:Qty: 2 on 07/14/2019 by Preet Gotti MD at [facility] Right: Ankle [place] [id number] 13 JUL 2019 1.8 Mm Q-Fix Suture [place] Implanted:Qty: 1 on 07/14/2019 by Preet Gotti MD at [facility] Right: Ankle [employer] 12/01/[phone] [id number] Care Teams Home Insurance Agent Relationship Specialty Start Date End Date Luzmaria Ledbetter MD PCP - General Family Practice 07/08/19
[2025-01-22 07:27] VITALS: BP 111/76; PULSE 108; RESP 16; TEMP 36.4; O2SAT 96
--- NOTE | 2025-01-22 08:04 | ED_ITS ---
HPI - Abdominal Pain General Time Seen by Provider: 08:00 Date Seen: 01/22/25 Chief Complaint: Abdominal Pain Stated Complaint: abdominal pain Time Seen by Provider: 01/22/25 08:04 Source: patient, RN notes reviewed and old records reviewed Mode of arrival: ambulatory Limitations: no limitations History of Present Illness HPI narrative: Patient is a very pleasant 49-year-old female with history of heart murmur, tobacco and alcohol use, hypertension who comes to the emergency room requesting an x-ray and an ultrasound for 3 months of various symptoms. Patient notes that she has been experiencing a cough which is worsened somewhat lately, headache is feeling congested and has also been experiencing diarrhea. She has had intermittent phlegm that she is also vomited up. Last night she was able to eat 2 pieces of pizza and did not have any problems. Patient notes that she has significantly cut down on her drinking and tobacco use lately but still feels ve ry tired. She was seen by her Renee Reynolds at the [facility] on WednesdayJanuary 19. Patient states that it was the end of the day and they were closing and so she was going to be sent to the hospital for an x-ray and ultrasound but the patient declined. Patient states that her primary provider was very upset at her. She called the clinic this morning and she was told to come to the hospital for those studies. She was under the impression that the orders were already here but she signed into the emergency room to be seen. We are unable to find any orders placed from the [facility] on Wednesday the or today. I did attempt to contact the [facility] and was only able to speak to the call center. Call center staff attempted to connect me with the provider or her nursing staff but unfortunately I was unable to talk to anybody today. Initially patient wanted only the studies and not to be seen in the ER but because we have no orders in our system I need to see patient as an ER patient as she did want these studies. Patient is receptive to being seen in the emergency room. Of note, my colleague had ordered laboratory studies on this patient but she declined. Patient notes that she has had a cough for at least 3 months and has been gradually getting worse. She also notes that she feels very congested in her head and she is be even having some headaches. She has not had a fever during this time. She has not had any unusual body aches during this time. Her diarrhea is nonbloody in nature and vomiting his only intermittent. She notes that she has had significant weight loss however and today her weight is 81.5 lb and a year ago she was probably at 100 lb. She has not had any abdominal surgeries in the past. Patient has noted heart murmur and she states she is supposed to follow up yearly. She has not been on any antibiotics recently. She does have colonoscopy scheduled for March along with an appointment for a nip wrapper. Related Data Home Medications ?Medication ?Instructions ?Recorded ?Confirmed albuterol sulfate 90 mcg/actuation 2 inh inhalation Q4H PRN 12/25/22 01/22/25 aerosol inhaler (Ventolin HFA) amlodipine 5 mg tablet 2.5 mg PO DAILY 12/17/24 01/22/25 Previous Rx's ?Medication ?Instructions ?Recorded metoprolol succinate 25 mg 25 mg PO DAILY #30 tabs 12/31/22 tablet,extended release 24 hr multivitamin with folic acid 400 1 tab PO DAILY #30 tabs 01/28/23 mcg tablet (Thera) amoxicillin 875 mg-potassium 1 tab PO BID #14 tabs 01/22/25 clavulanate 125 mg tablet Allergies Allergy/AdvReac Type Severity Reaction Status Date / Time oxycodone Allergy Intermediate Rash Verified 12/17/24 12:23 Review of Systems Status of ROS Reports: 10 or more systems reviewed and unremarkable except as noted in History and below Const Reports: change in weight and fatigue; Denies: fever or chills Eyes Denies: change in vision ENMT Reports: nasal congestion; Denies: throat pain, neck pain or hoarseness Cardio Denies: chest pain, swelling of feet/ankles or shortness of breath with exertion Resp Reports: cough; Denies: shortness of breath GI Reports: abdominal pain, nausea, vomiting and diarrhea; Denies: blood in stool Denies: painful urination Musculo Denies: back pain or neck pain Neuro Reports: headache Endo Reports: fatigue [facility] Medical History History of fracture of right ankle ?Z87.81 - Personal history of (healed) traumatic fracture (ICD-10) Chronic hyponatremia ?E87.1 - Hypo-osmolality and hyponatremia (ICD-10) Chronic cough ?R05.3 - Chronic cough (ICD-10) Essential hypertension ?I10 - Essential (primary) hypertension (ICD-10) Tobacco dependence ?F17.200 - Nicotine dependence, unspecified, uncomplicated (ICD-10) Chronic alcoholism ?F10.20 - Alcohol dependence, uncomplicated (ICD-10) Surgical History History of wisdom tooth extraction ?K08.409 - Partial loss of teeth, unspecified cause, unspecified class (ICD- 10) Family History Daughter Depression Maternal Grandmother Heart disease Father High blood pressure Social History Highest level of school completed/degree received: high school graduate Smoking Status: Current every day smoker What tobacco products do you use: cigarettes Years smoked: 30 Do you use any of these nicotine containing products: None How often do you have a drink containing alcohol: 4 or more times a week Alcohol type: beer How many standard drinks containing alcohol do you have on a typical day: 1 or 2 How often do you have six or more drinks on one occasion: Daily or almost daily AUDIT-C Alcohol total score: 8 Non-prescribed substance use: denies use Caffeine: Yes (3 cans Mt Dew) service: No Exam Narrative: Exam Narrative: Upon alert and oriented. Cachectic in appearance. Mentating normally. Head is atraumatic normocephalic. Neck is supple without lymphadenopathy. Heart with regular rate and rhythm. Systolic murmur auscultated 2 to 3/6. I believe but does have a crescendo like quality to it. Lungs are clear at this time. Abdomen is with they fuse mild tenderness in the right upper quadrant and epigastrium. Lower extremities without edema. She is moving all of her extremities. Const: Vital Signs, click to edit/add: Vital Signs - 24 hr 01/22/25 07:27 Temperature 97.5 F L Pulse Rate [Pulse Oximeter] 108 H Respiratory Rate 16 Blood Pressure [Ri ght Upper Arm] 111/76 Pulse Oximetry 96 Oxygen Delivery Me thod Room Air Documenting provider has reviewed patient's vital signs: yes Course Course ED Course: Patient add presented to the hospital thinking that she was going to be receiving ultrasound of the abdomen and a chest x-ray from order sent over by [facility]. We searched our system in unable to find those orders. I attempted to contact the provider and was unsuccessful in speaking to her or any of her team. We were able to look at the note from WednesdayJanuary 19 in the [facility] system and there is no mention of radiological studies being ordered at that time. Patient agreed to be seen in the ED. I did suggest we actually do abdominal CT given her weight loss but she declines stating she does not want an IV. Given her cachectic appearance I would be worried that without contrast we would not be able to detect abnormalities. At that time she did let me know that she had a CT 3 months ago and they did not find anything on it. With that in mind have already ordered ultrasound of the abdomen. I have also ordered a chest x-ray and patient kindly consented to a triple viral swab. Patient notes that she had labs done on Wednesday and is declining any further laboratory studies here in the emergency room. Patient understands that we may not find all the answers today and she will need to follow-up with her primary for further direction on her medical care. Reevaluation(s) Reevaluation #1: X-ray reassuring with no evidence of pneumonia. Patient is wanting to go to work and will therefore call her with results of triple swab and ultrasound. Patient is fairly further describing pressure in her sinuses that has been ongoing in the past few weeks. This initially started with a cough 3 months ago. Given her tobacco use, worsening symptoms I do diagnosed her with sinusitis. She probably also has bronchitis. Augmentin 875 p.o. b.i.d. x7 days is sent to her pharmacy. Vital Signs Vital signs: Initial Vital Signs Temperature 97.5 F L 01/22/25 07:27 Temperature Source Temporal Artery Scan 01/22/25 07:27 Pulse Rate 108 H 01/22/25 07:27 Respiratory Rate 16 01/22/25 07:27 Blood Pressure 111/76 01/22/25 07:27 Blood Pressure Mean 87 01/22/25 07:27 Blood Pressure Position Sitting 01/22/25 07:27 Pulse Oximetry 96 01/22/25 07:27 Oxygen Delivery Method Room Air 01/22/25 07:27 Vital Signs Temperature 97.5 F L 01/22/25 07:27 Pulse Rate 108 H 01/22/25 07:27 Respiratory Rate 16 01/22/25 07:27 Blood Pressure 111/76 01/22/25 07:27 Pulse Oximetry 96 01/22/25 07:27 Oxygen Delivery Method Room Air 01/22/25 07:27 Temperature 97.5 F L 01/22/25 07:27 Pulse Rate 108 H 01/22/25 07:27 Respiratory Rate 16 01/22/25 07:27 Blood Pressure 111/76 01/22/25 07:27 Pulse Oximetry 96 01/22/25 07:27 Oxygen Delivery Method Room Air 01/22/25 07:27 MDM - Abdominal Pain MDM Narrative Medical decision making narrative: 1. Sinusitis-given patient's length these symptoms and now description of some green nasal discharge with occasional streaks of blood will treat with antibiotics. She is declining doxycycline. Augmentin 875 p.o. b.i.d. x7 days. Patient is advised that she may start feeling better and day 3 or 4 but she should continue the whole prescription. She is advised that her diarrhea may be worsened by the use of Augmentin. I suspect she may also have bronchitis. 2. Abdominal pain-ultrasound pending at this time. No labs were done today. 3. Diarrhea-colonoscopy scheduled for March. Patient is mildly tachycardic upon presentation but during exam normal. She is declining IV and therefore do suggest push pushing fluids other than water as I do note a history of hyponatremia. I do not have access to her [facility] chart but she should have access during my chart. I would urge her to contact her physician to find out those results during discharge. 4. Disposition-home at this time. Patient does not want to wait for the results of the triple swab or ultrasound as she states that she needs to get to work. I think this is fine that she a departs at this time and I will call her if she has any positive findings on our outstanding studies. She is to follow up with her primary for recheck this week. Addendum: I did call patient with results of her outstanding labs and ultrasound. She is informed that she is negative for COVID/influenza/RSV. I did let her know that her ultrasound was somewhat abnormal with an enlarged liver as well as dilated common bile duct. I did tell her that it was recommended that she follow-up with endoscopy and MRCP. She will follow up with her primary provider this week so that they can get that scheduled. I have asked Vidya to reminder provider to read my note. No labs were drawn today per patient request Medical Records Attestation: I reviewed the patient's medical records. Lab Data Attestation: I reviewed the patient's lab results. Labs: Lab Results 01/22/25 Range/Units 08:36 SARS-CoV-2 (PCR) Negative SARS-CoV-2 (Negative) Influenza Type A (PCR) Negative PCR FLU A (Negative) Influenza Type B (PCR) Negative PCR FLU B (Negative) RSV (PCR) Negative PCR RSV (Negative) Imaging Data Chest x-ray: Attestation: I have reviewed the pertinent imaging results. My impression: I do not note any obvious infiltrate Radiologist's impression: HEART AND MEDIASTINUM: The heart size is normal. The mediastinal contour appears normal for patient age. LUNGS AND PLEURAL SPACES: The lungs appear normal.The pleural spaces are unremarkable. OSSEOUS STRUCTURES: Age-appropriate appearance. No acute focal finding. IMPRESSION: No evidence of active pulmonary disease. US - abdomen: Attestation: I have reviewed the pertinent imaging results. Radiologist's impression: TECHNIQUE: Grayscale and limited color Doppler abdominal ultrasound. FINDINGS: Liver: Enlarged, measuring at least 17 cm in craniocaudal length. Diffuse homogeneous increased hepatic parenchymal echotexture consistent with steatosis. Differential diagnostic considerations include chronic hepatitis and cirrhosis. Smooth contour. No suspicious focal lesion. No intrahepatic biliary ductal dilatation. Normal hepatopedal portal venous blood flow. Normal portal vein caliber (12 mm) and peak systolic velocity (20 cm/second). Gallbladder: Nondistended. Free of stones or significant sludge. Normal wall thickness. Negative sonographic Suarez sign. CBD: Limited visualization. Caliber of the proximal extrahepatic bile duct is 7 mm, just above the upper limit of normal (6 mm). This is a nonspecific finding. Correlation with serum biochemistry is recommended. If abnormal, then further evaluation (e.g. gastroenterology referral for consideration of endoscopy, MRCP) is suggested. Pancreas: Normal where visualized. The pancreas is partially obscured and therefore incompletely evaluated. Kidneys: Symmetrical renal sizes. Normal echotexture. No hydronephrosis. No convincing sonographic evidence of nephrolithiasis. Spleen: Homogenous in echotexture. No focal lesion. Normal craniocaudal length (8 cm). Midline Vasculature: Visualized aorta and cava are without significant findings. Peritoneal Cavity: No significant ascites. Additional Findings: None. IMPRESSION: 1. Hepatomegaly. Diffuse homogeneous increased hepatic parenchymal echotexture consistent with steatosis. Differential diagnostic considerations include chronic hepatitis and cirrhosis. No focal liver lesion. 2. Caliber of the proximal extrahepatic bile duct is 7 mm, just above the upper limit of normal (6 mm). This is a nonspecific finding. Correlation with serum biochemistry is recommended. If abnormal, then further evaluation (e.g. gastroenterology referral for consideration of endoscopy, MRCP) is suggested. Discharge Plan Discharge Clinical Impression: Sinusitis, Abdominal pain, Diarrhea Patient Disposition: Home, Self-Care Condition: Unchanged Additional Instructions: Start antibiotics for the treatment of sinus infection, possible bronchitis. Augmentin was sent to your pharmacy. Your chest x-ray did not show any pneumonia. I would recommend abstinence from tobacco use. Abdominal ultrasound is currently pending and I will call you if there are any significant abnormalities. I will also call you if the viral swab comes back positive. Prescriptions: New amoxicillin-pot clavulanate 875-125 mg tablet 1 tab PO BID Qty: 14 0RF No Action amlodipine 5 mg tablet 2.5 mg PO DAILY albuterol sulfate [Ventolin HFA] 90 mcg/actuation HFA aerosol inhaler 2 inh INHALATION Q4H PRN metoprolol succinate 25 mg tablet extended release 24 hr 25 mg PO DAILY Qty: 30 0RF multivitamin with folic acid [Thera] 400 mcg tablet 1 tab PO DAILY Qty: 30 8RF Follow Up/Referrals: Luzmaria Ledbetter MD [Referring] - Stand Alone Forms: [facility] Info Instructions
--- NOTE | 2025-01-22 08:32 | CRLHL7_ITS ---
For Patients: As a result of the Century Cures Act, medical imaging exams and procedure reports are released immediately into your electronic medical record. You may view this report before your referring provider. If you have questions, please contact your health care provider. INDICATION: Cough for 3 months. COMPARISON: None TECHNIQUE: PA and lateral views of the chest were acquired FINDINGS: TUBES AND LINES: None. HEART AND MEDIASTINUM: The heart size is normal. The mediastinal contour appears normal for patient age. LUNGS AND PLEURAL SPACES: The lungs appear normal.The pleural spaces are unremarkable. OSSEOUS STRUCTURES: Age-appropriate appearance. No acute focal finding. IMPRESSION: No evidence of active pulmonary disease. Dictated by Ilya Hernandez MD @ 01/22/2025 9:01:21 AM (Electronically Signed)
--- NOTE | 2025-01-22 08:32 | CRLHL7_ITS ---
For Patients: As a result of the Century Cures Act, medical imaging exams and procedure reports are released immediately into your electronic medical record. You may view this report before your referring provider. If you have questions, please contact your health care provider. INDICATION: Weight loss. Intermittent abdominal pain. COMPARISON: 12/26/2022 TECHNIQUE: Grayscale and limited color Doppler abdominal ultrasound. FINDINGS: Liver: Enlarged, measuring at least 17 cm in craniocaudal length. Diffuse homogeneous increased hepatic parenchymal echotexture consistent with steatosis. Differential diagnostic considerations include chronic hepatitis and cirrhosis. Smooth contour. No suspicious focal lesion. No intrahepatic biliary ductal dilatation. Normal hepatopedal portal venous blood flow. Normal portal vein caliber (12 mm) and peak systolic velocity (20 cm/second). Gallbladder: Nondistended. Free of stones or significant sludge. Normal wall thickness. Negative sonographic Suarez sign. CBD: Limited visualization. Caliber of the proximal extrahepatic bile duct is 7 mm, just above the upper limit of normal (6 mm). This is a nonspecific finding. Correlation with serum biochemistry is recommended. If abnormal, then further evaluation (e.g. gastroenterology referral for consideration of endoscopy, MRCP) is suggested. Pancreas: Normal where visualized. The pancreas is partially obscured and therefore incompletely evaluated. Kidneys: Symmetrical renal sizes. Normal echotexture. No hydronephrosis. No convincing sonographic evidence of nephrolithiasis. Spleen: Homogenous in echotexture. No focal lesion. Normal craniocaudal length (8 cm). Midline Vasculature: Visualized aorta and cava are without significant findings. Peritoneal Cavity: No significant ascites. Additional Findings: None. IMPRESSION: 1. Hepatomegaly. Diffuse homogeneous increased hepatic parenchymal echotexture consistent with steatosis. Differential diagnostic considerations include chronic hepatitis and cirrhosis. No focal liver lesion. 2. Caliber of the proximal extrahepatic bile duct is 7 mm, just above the upper limit of normal (6 mm). This is a nonspecific finding. Correlation with serum biochemistry is recommended. If abnormal, then further evaluation (e.g. gastroenterology referral for consideration of endoscopy, MRCP) is suggested. Dictated by Jorge Sanz MD @ 01/22/2025 9:48:58 AM (Electronically Signed)
--- OUTSIDE RECORDS SUMMARY | 2025-01-22 08:55 | XMS_ITS | Clinical Summary ---
Author Organization Agency Address [address] [place] [id number] Care Team Providers Care Wire Stripping Machine Operator Name Role Phone Luzmaria Ledbetter MD Primary [...] on file Medical Devices Implanted Type Area General Ledger Bookkeeper Device Identifier Shelf Expiration Date Model / Serial / Lot Distal Lateral Fibula Plate 77 Mm 3 Hole Implanted:Qty: 1 on 07/14/2019 by Preet Gotti MD at [facility] Right: Ankle [place] [id number] / / [id number] JUL 2019 3.5 Mm Locking Screw 10 Mm Implanted:Qty: 1 on 07/14/2019 by Preet Gotti MD at [facility] Right: Ankle [place] [id number] / / [id number] JUL 2019 3.5 Mm Locking Screw 16 Mm Implanted:Qty: 2 on 07/14/2019 by Preet Gotti MD at [facility] Right: Ankle [place] [id number] / / [id number] JUL 2019 3.5 Mm Locking Screw 12 Mm Implanted:Qty: 1 on 07/14/2019 by Preet Gotti MD at [facility] Right: Ankle [place] [id number] / / [id number] JUL 2019 3.5 Mm Locking Screw 14 Mm Implanted:Qty: 1 on 07/14/2019 by Preet Gotti MD at [facility] Right: Ankle [place] [id number] / / [id number] JUL 2019 3.5 Mm Non-Locking Screw 14 Mm Implanted:Qty: 2 on 07/14/2019 by Preet Gotti MD at [facility] Right: Ankle [place] [id number] 13 JUL 2019 4.0 Mm Partially-Thre aded Screws 40 Mm Implanted:Qty: 2 on 07/14/2019 by Preet Gotti MD at [facility] Right: Ankle [place] [id number] 13 JUL 2019 1.8 Mm Q-Fix Suture [place] Implanted:Qty: 1 on 07/14/2019 by Preet Gotti MD at [facility] Right: Ankle [employer] 12/01/2020 [id number] Care Teams Wire Stripping Machine Operator Relationship Specialty Start Date End Date Luzmaria Ledbetter MD PCP - General Family Practice 07/08/19
--- OUTSIDE RECORDS SUMMARY | 2025-01-22 08:55 | XMS_ITS | Clinical Summary ---
Author Organization [facility] Address [address] [place] [id number] Care Team Providers Care Credit Portfolio Manager Name Role Phone Lisette Reynolds Primary Care Provider [phone] Allergies Active Allergy Reactions Criticality Noted Date Comments Cats (Fur, Dander, Saliva) *Unknown 7 Doxycycline Dizziness 06/18/2016 Dizziness, nausea Oxycodone Rash High 01/19/2023 Medications [id number] (Alive Women's Gummy Vitamin) 200 mcg- 37.5 [...] Encounters Date Type Department Care Team Description 01/22/2025 Telephone [facility] [address] [place] [address] Lisette Reynolds PA Error-please disregard 01/19/2025 3:40 PM HOUSING GRANT ANALYST Office Visit [facility] [address] [place] [address] Lisette Reynolds PA Concerns (Cough/cold. Diarrhea, runny nose, cramping, weak, ears and throat discomfort. Some nose bleeds from blowing nose./ last weekend advised about possible mal-nutrition ) 01/19/2025 Travel 01/16/2025 Travel 01/02/2025 Telephone [facility] [address] [place] [address] Ever Acuña MD 01/01/2025 Medical Messaging [facility] [address] [place] [address] Lisette Reynolds PA Colonoscopy test 12/18/2024 1:30 PM HOUSING GRANT ANALYST Ancillary Procedure [facility] [address] [place] [address] 12/18/2024 9:10 AM HOUSING GRANT ANALYST Office Visit [facility] [address] [place] [address] Catalina Colin MD Gi Problem (Went to 12/17 for cold, Wondering about Bowel obstruction ) 12/18/2024 Travel 12/17/2024 Orders Only [facility] Scanner 1 scan: (1-Ord) [facility] [place], XR ABD MIN 2V, 12/17/2024 11/07/2024 8:00 AM HOUSING GRANT ANALYST Office Visit [facility] Elizabeth Gaffney [address] [place] [address] [place] [address] Ry Dalton MD CV General Cardiology Est (6 Mo F/U; Pt has no cardiac concerns) 11/07/2024 Travel 11/02/2024 Travel from Last 3 Months Immunizations Name Administration Dates Next Due COVID-19 vaccine (Oddslife 30mcg/0.3mL) P F, MDV 04/21/2021,03/31/2021 Tdap 09/08/2023,10/28/2007 [...] on file Legal Sex Female 6:18 AM HOUSING GRANT ANALYST Gender Identity Not on file Sexual Orientation Not on file 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 Not on file Not on file [...] Comments Blood Pressure 134/68 01/19/2025 3:52 PM HOUSING GRANT ANALYST Pulse 83 01/19/2025 3:52 PM HOUSING GRANT ANALYST Temperature 36.6 C (97.8 F) 12/18/2024 9:19 AM HOUSING GRANT ANALYST Respiratory Rate 14 08/02/2024 7:28 AM CDT Oxygen Saturation 97% 01/19/2025 3:52 PM HOUSING GRANT ANALYST Inhaled Oxygen Concentration - - Weight 38.8 kg (85 lb 9.6 oz) 01/19/2025 3:52 PM HOUSING GRANT ANALYST Height 149.9 cm (4' 11.02) 11/07/2024 7:[address] Body Mass Index 17.28 11/07/2024 7:48 AM HOUSING GRANT ANALYST Plan of Treatment Upcoming Encounters Date Type Department Care Team (Late st Contact Info) Description 03/20/2025 8:30 AM CDT Nutrition/Dietici an [facility] [address] [place] [address] [place] [address] 03/21/2025 7:50 AM CDT Office Visit [facility] [address] [place] [address] Lisette Reynolds PA [address] [place] [address] 04/06/2025 7:45 AM CDT Office Visit [facility] at [facility] [address] [place] [address] Ever Acuña MD [address] [place] [address] Health Maintenance Due Date Last Done Comments Pneumococcal series for age 6-49 (1 of 2 - PCV) 1995 Colonoscopy through age 75 2021 COVID-19 vaccine series ( season) 2024 04/21/2021, 03/31/2021 Influenza for age [...] COMP METABOLIC PANEL Routine 01/19/2025 4:57 PM HOUSING GRANT ANALYST Hyponatremia Alcohol use disorder, severe, dependence (HC) Liver disease, chronic, due to alcohol (HC) CT ABDOMEN PELVIS W STAT 12/18/2024 1 1:03 AM HOUSING GRANT ANALYST Abdominal pain, generalized URINALYSIS MACROSCOPIC - [facility] ONLY POC DIP ([facility]) Routine 12/18/2024 10:09 AM HOUSING GRANT ANALYST Abdominal pain, generalized CWS PATH REVIEW HEMATOLOGY STAT 12/18/2024 10:07 AM HOUSING GRANT ANALYST Abdominal pain, generalized RED CELL MORPHOLOGY STAT 12/18/2024 1 0:07 AM HOUSING GRANT ANALYST Abdominal pain, generalized PLATELET ESTIMATE STAT 12/18/2024 10: 07 AM HOUSING GRANT ANALYST Abdominal pain, generalized MANUAL DIFFERENTIAL STAT 12/18/2024 1 0:07 AM HOUSING GRANT ANALYST Abdominal pain, generalized CBC WITH AUTO DIFFERENTIAL STAT 12/18/2024 10:07 AM HOUSING GRANT ANALYST Abdominal pain, generalized URINALYSIS MICROSCOPIC STAT 12/18/2024 10:07 AM HOUSING GRANT ANALYST Abdominal pain, generalized URINE CULTURE Routine 12/18/2024 10:07 AM HOUSING GRANT ANALYST Abdominal pain, generalized CBC WITH AUTO DIFFERENTIAL STAT 12/18/2024 10:07 AM HOUSING GRANT ANALYST Abdominal pain, generalized COMP METABOLIC PANEL STAT 12/18/2024 10:07 AM HOUSING GRANT ANALYST Abdominal pain, generalized COVID/FLU/RSV PANEL Routine 12/18/2024 1 0:03 AM HOUSING GRANT ANALYST Viral URI with cough SCAN-RADIOLOGY REPORT 12/17/2024 12:00 AM HOUSING GRANT ANALYST XR MAMMO JANETT BILAT SCREEN Routine 05/10/2024 8:10 AM CDT Visit for screening mammogram ANTI HIV 1/2 Routine 09/08/2023 8:30 AM CDT Encounter for screening for human immunodeficiency virus (HIV) LIPID PANEL W REFLEX MEASURED LDL Routine 09/08/2023 8:30 AM CDT Lipid screening ANTI HCV Routine 12/18/2020 9:40 AM HOUSING GRANT ANALYST Weight loss, non-intentional MANAGER METAL THIN PREP PAP SCREEN IMAGED Routine 04/29/2020 9:50 AM CDT Cervical cancer screening from Last 3 Months or Most Recently Relevant to Health Maintenance Results * (ABNORMAL) COMP METABOLIC PANEL (01/19/2025 4:57 PM HOUSING GRANT ANALYST) Only the most recent of2 resultswithin the [...] BLOOD SPECIMEN / Unknown 01/19/2025 4:57 PM HOUSING GRANT ANALYST 01/19/2025 4:57 PM HOUSING GRANT ANALYST Lisette PATINO CHEMISTRY Final Res ult [facility] [address] [place] [address], [facility] [address] [place] [address] * CT ABDOMEN PELVIS W (12/18/2024 11:03 AM HOUSING GRANT ANALYST) Anatomical Region Laterality Modality Abdomen, Pelvis, AORTA, LIVER, SPLEEN Computed Tomography 12/18/2024 11:2 3 AM HOUSING GRANT ANALYST Narrative 12/18/2024 11:23 AM HOUSING GRANT ANALYST For Patients: As a result of the [...] For Patients: As a result of the Cures Act, medical imagingexams and procedure reports [...] POCT Urinalysis Dipstick Only (12/18/2024 10:09 AM HOUSING GRANT ANALYST) PH 5.5 5.0 - 8.0 [facility] SPECIFIC GRAVITY 1.010 1.001 - 1.035 [facility] GLUCOSE NEGATIVE NEGATIVE [facility] BILIRUBIN NEGATIVE NEGATIVE [facility] KETONES NEGATIVE NEGATIVE [facility] OCCULT BLOOD NEGATIVE NEGATIVE [facility] PROTEIN 1+(A) NEGATIVE [facility] NITRITE NEGATIVE NEGATIVE [facility] LEUKOCYTE ESTERASE 1+(A) NEGATIVE [facility] Urine URINE SPECIMEN / Unknown 12/18/2024 10:09 AM HOUSING GRANT ANALYST 12/18/2024 10:09 AM HOUSING GRANT ANALYST Narrative [facility] - 12/18/2024 10:27 AM HOUSING GRANT ANALYST FASTING:YES FASTING: YES Catalina Colni MD URINE Final Resul t [facility] [address] [place] [address], [facility] [address] [place] [address] * CWS PATH REVIEW HEMATOLOGY (12/18/2024 10:07 AM HOUSING GRANT ANALYST) PATH COMMENT Reviewed by BB on 12/19/2024 12/19/2024 1:20 PM HOUSING GRANT ANALYST [facility] Blood BLOOD SPECIMEN / Unknown [facility] Collect / Unknown 12/18/2024 10:07 AM HOUSING GRANT ANALYST 12/18/2024 10:07 AM HOUSING GRANT ANALYST Catalina Colin MD LABORATORY Final Resul t [facility] [address] [place] [address], [place] * (ABNORMAL) CBC WITH AUTO DIFFERENTIAL (12/18/2024 10:07 AM HOUSING GRANT ANALYST) Pathologist [facility] WHITE BLOOD COUNT 2.4(L) 4.5 - 11.0 thou/cu mm 12/18/2024 1:[address] [facility] RED BLOOD COUNT 3.54(L) 4.00 - 5.20 mil/cu mm 12/18/2024 1:[address] [facility] HEMOGLOBIN 12.3 12.0 - 16.0 g/dL 12/18/2024 1:[address] [facility] HEMATOCRIT 35.4 33.0 - 51.0 % 12/18/2024 1:[address] [facility] MCV 100 80 - 100 fL 12/18/2024 1:[address] [facility] MCH 34.7(H) 26.0 - 34.0 pg 12/18/2024 1:[address] [facility] MCHC 34.7 32.0 - 36.0 g/dL 12/18/2024 1:[address] [facility] RDW 11.8 11.5 - 15.5 % 12/18/2024 1:[address] [facility] PLATELET COUNT 85(L) 140 - 440 thou/cu mm 12/18/2024 1:[address] [facility] MPV 10.8 6.5 - 11.0 fL 12/18/2024 1:[address] [facility] Blood BLOOD SPECIMEN / Unknown [facility] / Unknown 12/18/2024 10:07 AM HOUSING GRANT ANALYST 12/18/2024 10:07 AM HOUSING GRANT ANALYST Catalina Colin MD HEMATOLOGY Final Resul t Performing Organization Address [facility] Co de Phone Number [facility] [address] [place] [address] * RED CELL MORPHOLOGY (12/18/2024 10:07 AM HOUSING GRANT ANALYST) RBC COMMENT RBC morphology appears normal RBC morphology appears normal, RBC morphology within normal limits for newborns. 12/18/2024 1:50 PM HOUSING GRANT ANALYST [facility] LARGE PLATELETS Present 12/18/2024 1:50 PM HOUSING GRANT ANALYST [facility] Blood BLOOD SPECIMEN / Unknown [facility] / Unknown 12/18/2024 10:07 AM HOUSING GRANT ANALYST 12/18/2024 10:07 AM HOUSING GRANT ANALYST Catalina Colin MD HEMATOLOGY Final Resul t Performing Organization Address [facility] Co de Phone Number [facility] [address] [place] [address] * (ABNORMAL) PLATELET ESTIMATE (12/18/2024 10:07 AM HOUSING GRANT ANALYST) Pathologist [facility] PLATELET ESTIMATE Decreased (A) Adequate, No estimate 12/18/2024 1:50 PM HOUSING GRANT ANALYST [facility] Blood BLOOD SPECIMEN / Unknown [facility] / Unknown 12/18/2024 10:07 AM HOUSING GRANT ANALYST 12/18/2024 10:07 AM HOUSING GRANT ANALYST Catalina Colin MD HEMATOLOGY Final Resul t Performing Organization Address City/[facility]/ZIP Co de Phone Number [facility] [address] [place] [address] * (ABNORMAL) MANUAL DIFFERENTIAL (12/18/2024 10:07 AM HOUSING GRANT ANALYST) Pathologist [facility] % NEUTROPHILS 33.0 % 12/18/2024 1:[address] [facility] % LYMPHOCYTES 60.0 % 12/18/2024 1:[address] [facility] % MONOCYTES 7.0 % 12/18/2024 1:[address] [facility] % EOSINOPHILS 0.0 % 12/18/2024 1:[address] [facility] % BASOPHILS 0.0 % 12/18/2024 1:[address] [facility] NEUTROPHILS ABSOLUTE 0.8(L) 1.7 - 7.0 thou/cu mm 12/18/2024 1:[address] [facility] LYMPHOCYTES ABSOLUTE 1.4 0.9 - 2.9 thou/cu mm 12/18/2024 1:[address] [facility] MONOCYTES ABSOLUTE 0.2 <0.9 thou/cu mm 12/18/2024 1:[address] [facility] EOSINOPHILS ABSOLUTE 0.0 <0.5 thou/cu mm 12/18/2024 1:[address] [facility] BASOPHILS ABSOLUTE 0.0 <0.3 thou/cu mm 12/18/2024 1:[address] [facility] Blood BLOOD SPECIMEN / Unknown [facility] Collect / Unknown 12/18/2024 10:07 AM HOUSING GRANT ANALYST 12/18/2024 10:07 AM [facility] us Catalina Colin MD HEMATOLOGY Final Resul t [facility] [address] [place] [address] * (ABNORMAL) URINALYSIS MICROSCOPIC (12/18/2024 10:07 AM HOUSING GRANT ANALYST) RBC 0-2 0-2, None Seen /HPF 12/18/2024 1:[address] [facility] WBC 11-25(A) 0-2, 3-5, None Seen /HPF 12/18/2024 1:[address] [facility] BACTERIA Many(A) None Seen, Rare, Few Bacteria/H PF 12/18/2024 1:[address] [facility] EPITHELIAL CELLS Few None Seen, Few Epi/HPF 12/18/2024 1:[address] [facility] Urine URINE SPECIMEN / Unknown Non-Blood / Unknown 12/18/2024 10:07 AM HOUSING GRANT ANALYST 12/18/2024 10:07 AM HOUSING GRANT ANALYST Catalina Colin MD URINE Final Resul t [facility] [address] [place] [address] * (ABNORMAL) URINE CULTURE (12/18/2024 10:07 AM HOUSING GRANT ANALYST) CULTURE RESULT(A) 12/21/2024 7:00 AM HOUSING GRANT ANALYST [facility] CULTURE >100,000 CFU/mL Escherichia coli 12/21/2024 7:00 AM HOUSING GRANT ANALYST [facility] Urine URINE SPECIMEN / Unknown Non-Blood / Unknown 12/18/2024 10:07 AM HOUSING GRANT ANALYST 12/18/2024 10:07 AM HOUSING GRANT ANALYST Narrative Organism Antibiotic Method Susceptibility Escherichia coli [...] <=0.25: S Escherichia coli NITROFURANTOIN <=16: S Catalian Colin MD MICROBIOLOGY Final Resul t [facility] [address] [place] [address], * COVID/FLU/RSV PANEL (12/18/2024 10:03 AM HOUSING GRANT ANALYST) COVID 19 [facility] Negative Negative 12/18/2024 4:17 PM HOUSING GRANT ANALYST [facility] Comment:All PCR tests are feng bject to false negative result due to variability in viral load and collection technique. A negative result does not rule out a SARS-CoV-2 infection. Clinical correlation required. INFLUENZA A PCR Negative 4:17 PM HOUSING GRANT ANALYST [facility] INFLUENZA B PCR Negative 4:17 PM HOUSING GRANT ANALYST [facility] Respiratory Syncytial Virus Negative 12/18/2024 4:17 PM HOUSING GRANT ANALYST [facility] Swab NASOPHARYNGEAL SWAB / Unknown Non-Blood / Unknown 12/18/2024 10:03 AM HOUSING GRANT ANALYST 12/18/2024 10:03 AM HOUSING GRANT ANALYST us Catalina Colin MD MICROBIOLOGY Final Resul t [facility] [address] [place] [address], * SCAN-RADIOLOGY REPORT (12/17/2024 12:00 AM HOUSING GRANT ANALYST) Anatomical Region Laterality Modality Other us Scanner [...] care provider. XR MAMMO JANETT BILAT SCREEN [[id number]] CLINICAL HISTORY: This is an asymptomatic 48 y.o. patient. INDICATION FOR EXAM: Mammogram Screening. TECHNIQUE: CC & MLO views were obtained. This study was evaluated with the assistance of Computer-Aided Detection. Breast Tomosynthesis was used in interpretation. COMPARISON FILM: Yes 05/07/23 [facility] Daily Secret FINDINGS: There are scattered areas of fibroglandular density. There are no dominant masses, suspicious micro calcifications or areas of architectural distortion. us Lisette Reynolds PA MAMMO Final Res ult * (ABNORMAL) LIPID PANEL W REFLEX MEASURED LDL [[id number]] (09/08/2023 8:30 AM CDT) CHOLESTEROL,TOTAL 201(H) 100 - 199 mg/dL 09/08/2023 4:31 PM CDT [facility] Comment: Cholesterol, Total Reference Ranges Desirable <200 mg/dL Borderline 200-239 mg/dL High >=240 mg/dL TRIGLYCERIDES 157(H) <150 mg/dL 09/08/2023 4:31 PM CDT [facility] HDL CHOLESTEROL 115 >40 mg/dL 4:31 PM CDT [facility] NON-HDL CHOLESTEROL 86 <145 mg/dl 09/08/2023 4:31 PM CDT [facility] CHOL/HDL RATIO 1.75 <4.50 09/08/2023 4:31 PM CDT [facility] LDL CHOLESTEROL 55 <=130 mg/dL 09/08/2023 4:31 PM CDT [facility] VLDL CHOLESTEROL 31(H) <=30 mg/dL 09/08/2023 4:31 PM CDT [facility] PROVIDER ORDERED STATUS RANDOM 09/08/2023 4:31 PM CDT [facility] Blood BLOOD SPECIMEN / Unknown Venipuncture / Unknown 09/08/2023 8:30 AM CDT 09/08/2023 8:32 AM CDT Lisette PATINO CHEMISTRY Final Res ult [facility] [address] [place] [address], [place] * ANTI HIV 1/2 [54088.0] (09/08/2023 8:30 AM CDT) Pathologist [facility] HIV-1/HIV-2 SCREEN Non-Reacti ve Non-Reacti ve 09/08/2023 4:12 PM CDT [facility] Comment:HIV-1 p24 and HIV-1/ HIV-2 Ab Not Detected. Blood BLOOD SPECIMEN / Unknown Venipuncture / Unknown 09/08/2023 8:30 AM CDT 09/08/2023 8:32 AM CDT Lisette PATINO SEND OUTS Final Res ult Performing Organization Address City/[facility] Co de Phone Number [facility] [address] [place] [address], [place] * ANTI HCV (12/18/2020 9:40 AM HOUSING GRANT ANALYST) [facility] [address] HEPATITIS C ANTIBODY Non-React weston Non-React weston 12/18/2020 6:32 PM HOUSING GRANT ANALYST [facility] Comment:Antibodies to HCV no t detected; does not exclude the possibility of exposure to HCV. Blood BLOOD SPECIMEN / Unknown Venipuncture / Unknown 12/18/2020 9:40 AM HOUSING GRANT ANALYST 12/18/2020 9:50 AM HOUSING GRANT ANALYST Luzmaria Ledbetter MD SEND OUTS Final Result [facility] [address] [place] [address], [place] * MANAGER METAL THIN PREP PAP SCREEN IMAGED (04/29/2020 9:50 AM CDT) Pathologist [facility] Case Report Gynecologic Cytology Report Case: [id number] Authorizing Provider: Luzmaria Ledbetter MD Collected: 04/29/2020 0950 Ordering Location: [facility] Received: 04/29/2020 1031 Clinic First Screen: Greg العراقي Specimen: MANAGER METAL ThinPrep Vial Screening, Cervical 05/02/2020 12:42 PM CDT [facility] EN[facility]AL LABORAT[facility] INTERPRETATION/ RESULT NEGATIVE FOR INTRAEPITHELIAL LESION OR MALIGNANCY (NIL) (none) 05/02/2020 12:42 PM CDT [facility] LABORATORY IMEN ADEQUACY Satisfactory for evaluation Endocervical component present 05/02/2020 12:42 PM CDT [facility] LAB[facility] HPV REQUEST HPV and PAP 05/02/2020 12:42 PM CDT [facility] Date of LMP 03/29/20 05/02/2020 12:42 PM CDT [facility] LAB[facility] Last Pap Date 06/13/15 05/02/2020 12:42 PM CDT [facility] Last Pap Result NIL 0 12:42 PM CDT [facility] Abnormal Pap or [place] Bx in last 5 years No 05/02/2020 12:42 PM CDT [facility] Menstrual Status Regular Periods 05/02/2020 12:42 PM CDT [facility] LAB[facility]ORY [place] Bx Done Today No 05/02/2020 12:42 PM CDT [facility] Additional Information None given 05/02/2020 12:42 PM CDT [facility] EN[facility] LABOR[facility]ORY Comment: Cytology is screened at [facility], [facility] - [address], [place] [address] and [facility] - [address] [place] [address], [place] [address] and [facility] - [address] [place] [address] Interpreted at [facility] - [address] [place] [address], [place] [address] Automated Review Successful 05/02/2020 12:42 PM CDT [facility] ENTRAL LABORATORY Comment:Specimen processed s uccessfully by automated director of research center device, ThinPrep Imaging System, [employer] ANCILLARY TESTING MANAGER METAL HPV Ordered, Please see separate report 05/02/2020 12:42 PM CDT [facility] [employer] LABORATORY-C ENTRAL LABORATORY Note The pap test [...] and malignant lesions. 05/02/2020 12:42 PM CDT [facility]AL LAB[facility] Other (Cervical) Non-Blood / Unknown 04/29/2020 9:50 AM CDT 04/29/2020 10:31 AM CDT us Luzmaria Ledbetter MD PATHOLOGY/CYTOLOGY Final Resu lt [facility]AL LABORATORY [address] [place] [address], [place] from Last 3 Months or Most Recently Relevant to Health Maintenance Additional Health Concerns Infection Onset Date Last Indicated Rule-Out C.diff 12/23/2020 12/23/2020 Rule-Out Stool Pathogen 01/19/2025 01/19/20 25 Insurance [facility] Care Teams Credit Portfolio Manager Relationship Specialty Start Date End Date Lisette Reynolds PA [address] [place] [address] PCP - General Physician Fire Hydrant Mechanic 05/07/23
[2025-01-22 09:25] LABS: PCR FLU A Negative PCR FLU A (Negative); PCR FLU B Negative PCR FLU B (Negative); PCR RSV Negative PCR RSV (Negative); SARS PCR* Negative SARS-CoV-2 (Negative)
== END 2025-01-22 09:20 | disposition home or self-care (01) ==
PROVIDERS: Emergency Provider Family Medicine; PCP Student in an Organized Health Care Education/Training Program
DX: R10.9 Unspecified abdominal pain (principal); R19.7 Diarrhea, unspecified; J32.9 Chronic sinusitis, unspecified
CPT/HCPCS: 71046; 76700; 80048; 80076; 83735; 85025; 85610; 87631; 99284